=== PATIENT | male | born 1940 | race Caucasian/White ===

== ENCOUNTER 2019-04-22 12:39 | Day surgery (SDC) | payer MEDICARE, OTHER, SELFPAY ==
[2019-04-22] VITALS (7 sets, daily range): BP systolic 112–129; BP diastolic 70–82; PULSE 67–74; RESP 12–17; TEMP 35.9–36.8; O2SAT 94–98; BMI 29.2
--- NOTE | 2019-04-22 | PATH_ITS ---
[facility] Accession Number: [id number] . 01 Material submitted: . PART A: colon - ASCENDING COLON POLYP PART B: colon - SIGMOID COLON POLYP . 02 Diagnosis: A. Ascending Colon, Polyp: Tubular adenoma. . B. Sigmoid Colon, Polyp: Colonic mucosa with focal mucosal hyperplasia. Negative for dysplasia or malignancy. [facility] 04/23/2019 0935 Local . 02 Electronically signed: . Chevy Vu MD, PhD, Pathologist NPI- [id number] . 01 Gross description: . Part A: ASCENDING COLON POLYP: Received in formalin is 1 fragment(s) of norman, soft tissue measuring 0.2 x 0.1 x 0.1 cm which is entirely submitted and submitted entirely in 1 cassette(s) Part B: SIGMOID COLON POLYP: Received in formalin is 1 fragment(s) of norman, soft tissue measuring 0.3 x 0.3 x 0.3 cm which is entirely submitted and submitted entirely in 1 cassette(s) /[facility] 04/22/2019 2158 Local . 02 Pathologist provided ICD-10: D12.2, K63.5 . 02 CPT . 543982, 640879 Performed at: 01 [facility] [address], [place], [place] [id number] MD Marques West MD Phone: [phone] Performed at: 02 [facility] [address] [place], [place] [id number] MD Rosario Winter MD Phone: [phone]
--- NOTE | 2019-04-22 13:44 | PM.OP.ENDO ---
Operative Date/Time/Diagnoses Date of procedure: 04/22/19 Time of procedure: 13:44 Pre-op diagnosis: Screening for colon cancer Post-op diagnosis: other (1. Ascending polyp x1, 6-8 mm, removed with cold biopsy forceps; 2. Sigmoid polyp x1, 4 mm, removed with cold biopsy forceps) Procedure & Clinicians Study performed: Colonoscopy Same procedure as scheduled: Yes Indications: 1. Screening for colon cancer Surgeon: Maria M Barrera Procedure Notes SCOAP/Timeout: 14:00 Procedure in detail: ENDOSCOPIST: Maria M Barrera MD Sedation RN: Miriam Le RN Sedation start time: 2:03 p.m. Sedation end time: 2:32 p.m. PROCEDURE: Colonoscopy with biopsy INDICATIONS: 1. Screening for colon cancer MEDICATION: Levsin 0.125 mg sublingual, incremental doses of Versed and fentanyl until appropriate level sedation achieved. ASA CLASS: 2 TOTAL PROCEDURE TIME: 27 minutes CECAL WITHDRAWAL TIME: 13 minutes COMPLICATIONS: None. EXTENT OF PROCEDURE: Cecum. QUALITY OF PREP: Good with portions of liquid stool. PROCEDURE: Prior to insertion of the colonoscope, a digital rectal examination was accomplished with circumferential palpation of the distal rectal mucosa without significant findings being noted. The high-definition colonoscope was passed into the rectum in the usual fashion and advanced over to the cecum without difficulty. The ileocecal valve, appendiceal stoma, and medial wall all could be inspected and no abnormalities were seen. ASCENDING COLON: As the colonoscope was withdrawn, care was taken to expose and inspect the haustral folds and a 6-8 mm polyp was noted and removed with cold biopsy forceps, excellent hemostasis noted. HEPATIC FLEXURE: Normal no polyps, diverticula or other abnormalities. TRANSVERSE COLON: Normal no polyps, diverticula or other abnormalities. DESCENDING COLON: Normal no polyps, diverticula or other abnormalities. SIGMOID COLON: A 4 mm polyp was seen and removed with cold biopsy forceps, excellent hemostasis, otherwise, no diverticula or other abnormalities. RECTUM: Normal. J maneuver was produced. There was no significant perianal disease. The J maneuver was broken. The remainder of the rectum was inspected and there was no external hemorrhoid disease. The scope was withdrawn. IMPRESSION: 1. Ascending polyp x1, 6-8 mm, removed with cold biopsy forceps 2. Sigmoid polyp 1, 4 mm, removed with cold biopsy forceps PLAN: 1. Follow up in clinic status post pathology results. The possibility of a missed lesion including a malignancy has been discussed with the patient previously. Potential alarm symptoms have been discussed and should be reported immediately. Scope withdrawal time: 13 minutes Sedation minutes: 29 Findings: polyp Specimen(s): other (Ascending x1, sigmoid x1) Complications: none Impression: As above Post-procedure Recommendations: Will call with biopsy results Follow up: weeks (2) Disposition: PACU
[2019-04-22] MEDS: HYOSCYAMINE 0.125 MG TABLET PO ×2 (13:58→14:34)
[2019-04-22] MEDS: MIDAZOLAM 5 MG/5 ML VIAL IV (14:35)
[2019-04-22] MEDS: fentaNYL 250 MCG/5 ML INJ IV (14:36)
== END 2019-04-22 15:45 | disposition home or self-care (01) ==
PROVIDERS: Family Provider Family Medicine; PCP Family Medicine; Visit Provider Student in an Organized Health Care Education/Training Program
PROC: 0DJD8ZZ Inspection of Lower Intestinal Tract, Via Natural or Artificial Opening Endoscopic (ICD-10-PCS; CPT 45378; principal; 2019-04-22 14:00)
DX: Z12.11 Encounter for screening for malignant neoplasm of colon (principal); E11.9 Type 2 diabetes mellitus without complications; Z79.4 Long term (current) use of insulin; D12.2 Benign neoplasm of ascending colon; D12.5 Benign neoplasm of sigmoid colon; E03.9 Hypothyroidism, unspecified
CPT/HCPCS: 45380; J2250; J3010

== ENCOUNTER → 2021-05-14 13:56 | Outpatient (CLI) | payer MEDICARE, OTHER, SELFPAY ==
--- NOTE | 2021-05-14 | DI.CT.S_ITS ---
PROCEDURE: CT ABDOMEN PELVIS W CON INDICATIONS: Unspecified abdominal pain TECHNIQUE: After the administration of oral and IV contrast, axial sections were acquired from the lung bases to the pubic symphysis. Coronal and sagittal reformats were performed. For radiation dose reduction, the following was used: automated exposure control, adjustment of mA and/or kV according to patient size. COMPARISON: None. FINDINGS: Image quality: Excellent. Lung bases: Unremarkable. Heart: No significant findings. ABDOMEN: Liver: At least 5 subcentimeter, calcified lesions are seen in the right hepatic lobe (i.e. series 4, image 39). 1.1 cm hypoattenuating lesion in the inferior aspect of the hepatic lobe, which may reflect a cyst. Gallbladder: Cholecystectomy. Biliary ducts: Minimal intrahepatic biliary duct dilatation. Pancreas: No significant abnormality. Spleen: Normal contour. Adrenal Glands: No nodularity. Kidneys and Ureters: Symmetric enhancement . Mild dilatation of the bilateral ureters. A few scattered cortical hypoattenuating lesions are seen measuring up to 1.2 cm, which may reflect cysts. Stomach and Bowel: Stomach, small bowel loops, and colon are unremarkable. Normal appendix. Peritoneum: No abnormal intraperitoneal fluid. No free air. Ventral Wall: Small fat containing periumbilical hernia. Abdominal Nodes: No retroperitoneal or mesenteric adenopathy by size criteria. Vessels: Aorta and inferior vena cava are normal in size. Calcified atheromatous change of the aorta. PELVIS: Pelvic Organs: Enlargement of the prostate, measuring 6.2 cm in transverse dimension. Bladder: Indentation by prostatomegaly. Pelvic Nodes: No enlarged lymph nodes. Miscellaneous: No inguinal hernias are seen. Bones: Unremarkable. Multifocal degenerative changes. IMPRESSION: 1. Peripheral calcified lesions in the right hepatic lobe, raising concern for a remote parasitic infectious process. 2. Prostatomegaly, which indents the posterior urinary bladder and causes mild hydroureter. Dictated by: Nicholas Tyson M.D. on 05/14/2021 at 16:36 Approved by: Nicholas Tyson M.D. on 05/14/2021 at 16:48
== END ==
PROVIDERS: Family Provider Family Medicine; PCP Family Medicine; Referring Provider Family Medicine; Visit Provider Family Medicine
DX: R10.9 Unspecified abdominal pain (principal); K76.9 Liver disease, unspecified; N40.0 Benign prostatic hyperplasia without lower urinary tract symptoms; N13.4 Hydroureter
CPT/HCPCS: 74177; Q9967

== ENCOUNTER → 2021-09-01 10:37 | Outpatient (CLI) | payer MEDICARE, OTHER, SELFPAY ==
--- NOTE | 2021-09-01 10:40 | DI.RAD.S_ITS ---
PROCEDURE: XR HAND RT MIN 3V INDICATIONS: PAIN TECHNIQUE: 3 views of the hand(s) acquired. COMPARISON: None. FINDINGS: Bones: No fractures or dislocations. Carpal bones are normally aligned. No suspicious bony lesions. Joint space narrowing and subchondral sclerosis noted involving the 1st interphalangeal joint and 1st carpometacarpal joint. Small marginal erosions noted involving the 2nd and 3rd PIP Soft tissues: No suspicious soft tissue calcifications. IMPRESSION: Mild arthritic changes associated with 2nd and 3rd finger marginal erosions Approved by: Dusty Dueñas M.D. on 09/01/2021 at 12:39
--- NOTE | 2021-09-01 10:40 | DI.RAD.S_ITS ---
PROCEDURE: XR HAND LT MIN 3V INDICATIONS: PAIN TECHNIQUE: 3 views of the hand(s) acquired. COMPARISON: [facility], CR, XR HAND RT MIN 3V, 09/01/2021, 11:44. FINDINGS: Bones: No fractures or dislocations. Carpal bones are normally aligned. No suspicious bony lesions. First carpometacarpal joint space narrowing with subchondral sclerosis noted. Carpometacarpal joint space narrowing with small subchondral cysts Soft tissues: No suspicious soft tissue calcifications. 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 on 09/01/2021 at 12:57
== END ==
PROVIDERS: Family Provider Family Medicine; PCP Family Medicine; Referring Provider Family Medicine; Visit Provider Family Medicine
DX: M18.12 Unilateral primary osteoarthritis of first carpometacarpal joint, left hand (principal); M19.042 Primary osteoarthritis, left hand; M79.642 Pain in left hand; M79.641 Pain in right hand
CPT/HCPCS: 73130

== ENCOUNTER → 2022-05-27 12:30 | Outpatient (CLI) | payer MEDICARE, OTHER, SELFPAY ==
--- NOTE | 2022-05-27 13:02 | DI.ECHO.S_ITS ---
Interpretation Summary The ejection fraction is estimated to be 50-55%. Diastolic parameters suggest probable normal left ventricular diastolic function and normal filling pressures. The right ventricle is normal in size and function. There is mild aortic regurgitation. There is mild tricuspid regurgitation. The right ventricular systolic pressure is estimated to be at least 25 mmHg based on an estimated right atrial pressure of 3 mm Hg. Procedure: A two-dimensional transthoracic echocardiogram with color flow and Doppler was performed. The study quality was technically difficult. There is no prior echocardiogram noted for this patient. Left Ventricle: The left ventricle is normal in size and wall thickness. Left ventricular systolic function is low normal. The ejection fraction is estimated to be 50-55%. Left ventricular wall motion is normal. Diastolic parameters suggest probable normal left ventricular diastolic function and normal filling pressures. Right Ventricle: The right ventricle is normal in size and function. Atria: Both atria are normal in size. The interatrial septum grossly appears intact with no obvious evidence for an atrial septal defect. Mitral Valve: The mitral valve is normal in structure and function. There is trace mitral regurgitation. Aortic Valve: The aortic valve is trileaflet. There is no aortic valve stenosis. There is mild aortic regurgitation. Tricuspid Valve: The tricuspid valve is normal in structure and function. There is mild tricuspid regurgitation. The right ventricular systolic pressure is estimated to be at least 25 mmHg based on an estimated right atrial pressure of 3 mm Hg. Pulmonic Valve: The pulmonic valve is not well seen, but is grossly normal. There is mild pulmonic regurgitation. Great Vessels: The aortic root is normal size. The ascending aorta could not be visualized. The IVC is of normal diameter and collapses greater than 50% with a sniff. This suggests a low right atrial pressure of 3 mm Hg. Pericardium/ Pleura There is no pericardial effusion. There is no pleural effusion. MMode/2D Measurements & Calculations LVIDd: 5.4 cm LVOT diam: 2.4 cm LVIDs: 3.8 cm Ao root diam: 3.3 cm FS: 29.4 % asc Aorta Diam: 3.6 cm IVSd: 0.95 cm LVPWd: 1.00 cm LV mcnamara. diameter/BSA (cm/m^2): 2.6 LV sys. diameter/BSA (cm/m^2): 1.8 LA A2 area: 19.0 cm2 RA long axis: 5.6 cm LA A4 area: 18.6 cm2 RA area: 17.7 cm2 LA length (vol): 5.0 cm RA vol: 47.3 ml LA vol: 59.7 ml RA : 22.4 ml/m2 LA vol index: 28.3 ml/m2 TAPSE: 2.4 cm Doppler Measurements & Calculations Ao V2 max: 127.2 cm/sec LVOT Max Darrin: 81.0 cm/sec Ao V2 mean: 92.5 cm/sec LV V1 max P.6 mmHg Ao max P.5 mmHg LV V1 VTI: 17.4 cm Ao mean P.8 mmHg TRINITY(I,D): 2.9 cm2 Ao V2 VTI: 26.4 cm TRINITY(V,D): 2.8 cm2 sev ratio: 0.66 TRINITY indexed to BSA (cm^2/m^2): 1.4 MV E max darrin: 59.3 cm/sec TR max darrin: 234.4 cm/sec MV A max darrin: 77.3 cm/sec TR max P.0 mmHg MV E/A: 0.77 Med Peak E' Darrin: 5.9 cm/sec E/E' med: 10.0 Lat Peak E' Darrin: 6.8 cm/sec E/E' lat: 8.7 E/e' average: 9.4 MV dec time: 0.28 sec SV(LVOT): 76.4 ml Reading Physician:04:11 PM
== END ==
PROVIDERS: Family Provider Family Medicine; PCP Family Medicine; Referring Provider Internal Medicine Cardiovascular Disease; Visit Provider Internal Medicine Cardiovascular Disease
DX: I08.2 Rheumatic disorders of both aortic and tricuspid valves (principal); I95.9 Hypotension, unspecified
CPT/HCPCS: 93306

== ENCOUNTER → 2022-10-07 10:04 | Outpatient (CLI) | payer MEDICARE, OTHER, SELFPAY ==
--- NOTE | 2022-10-07 | DI.CT.S_ITS ---
PROCEDURE: CT ABDOMEN PELVIS W CON INDICATIONS: unspecified abdominal pain TECHNIQUE: After the administration of oral and intravenous contrast, axial sections were acquired from the lung bases to the pubic symphysis. Coronal and sagittal reformats were performed. For radiation dose reduction, the following was used: automated exposure control, adjustment of mA and/or kV according to patient size. COMPARISON:[facility], CT, CT ABDOMEN PELVIS W CON, 05/14/2021, 15:22. FINDINGS: Image quality: Excellent. Lung bases: Unremarkable. Heart: No significant findings. ABDOMEN: Liver: Normal in size and overall enhancement. Punctate subcentimeter low-density foci are present suggesting the presence of small hepatic cysts which are incompletely characterized. Gallbladder: Surgically absent. Biliary ducts: Unremarkable. Pancreas: Unremarkable. Spleen: Unremarkable. Adrenal Glands: Unremarkable. Kidneys and Ureters: Unremarkable. Stomach and Bowel: Stomach, small bowel loops, and colon are unremarkable. The appendix is thin walled. Peritoneum: No abnormal intraperitoneal fluid. No free air. Ventral Wall: No hernia. Abdominal Nodes: No retroperitoneal or mesenteric adenopathy by size criteria. Vessels: Aorta and inferior vena cava are normal in size. There are scattered atheromatous calcifications throughout the aorta and iliac arteries bilaterally. PELVIS: Pelvic Organs: Unremarkable. Bladder: A radiodense 1.5 cm exophytic mass is present along the posterior right aspect of the bladder (series 2/image 66). The prostate has a heterogeneous appearance and measures 6.5 cm in diameter. Pelvic Nodes: No enlarged lymph nodes. Miscellaneous: There are small bilateral fat containing inguinal hernias. Bones: Unremarkable. IMPRESSION: 1. Exophytic radiodense bladder mass. Direct visualization recommended. Differential considerations include urothelial neoplasm. 2. No other acute intra-abdominal findings. Normal appendix. 3. Prostatomegaly. Dictated by: Martha Bosch M.D. on 10/07/2022 at 12:28 Approved by: Martha Bosch M.D. on 10/07/2022 at 12:33
== END ==
PROVIDERS: Family Provider Family Medicine; PCP Family Medicine; Referring Provider Family Medicine; Visit Provider Family Medicine
DX: N32.9 Bladder disorder, unspecified (principal); N40.0 Benign prostatic hyperplasia without lower urinary tract symptoms; R10.9 Unspecified abdominal pain; K40.20 Bilateral inguinal hernia, without obstruction or gangrene, not specified as recurrent
CPT/HCPCS: 74177; Q9967

== ENCOUNTER 2022-11-22 06:43 | Day surgery (SDC) | payer MEDICARE, OTHER, SELFPAY ==
[2022-11-22] VITALS (8 sets, daily range): BP systolic 124–161; BP diastolic 66–91; PULSE 68–85; RESP 11–18; TEMP 36.3–36.6; O2SAT 95–99; BMI 30.1
--- NOTE | 2022-11-22 | PATH_ITS ---
[facility] Accession Number: [id number] No. of containers..01 Tissue . 01 Material submitted: . bladder - BLADDER TUMOR . 01 Diagnosis: Urinary Bladder, Transurethral Resection: High-grade papillary transitional cell carcinoma, noninvasive. - Muscularis propria present, uninvolved. [facility] 11/25/2022 1754 Local . 01 Electronically signed: . Opal Tucker MD, Pathologist NPI- [id number] . 01 Gross description: . BLADDER TUMOR: Received in formalin are multiple fragment(s) of norman, soft tissue measuring 0.1 x 0.1 x 0.1 cm to 0.3 x 0.3 x 0.2 cm submitted entirely in 1 cassette(s) /[facility] 11/23/2022 1924 Local . 01 Pathologist provided ICD-10: C67.9 . 01 CPT . 693547 Specimen Comment: A courtesy copy of this report has been sent to [phone] Performed at: 01 [facility] [address] [place] [address], [place], [place] [id number] MD Marques West MD Phone: [phone]
[2022-11-22] MEDS: LACTATED RINGERS 1,000 ML 21 ML IV (07:33)
--- NOTE | 2022-11-22 07:37 | PM.PREOP ---
Pre-operative Note COVID-19 COVID-19 status: Negative Criteria for continued procedure: Delay expected to result in less-positive ultimate med/surg outcome and Non-surgical alternatives not available or appropriate per current SOC Interval Note History & Physical reviewed/Exam performed by Physician: Yes Changes to H&P: No
--- NOTE | 2022-11-22 07:46 | SUR.OPER ---
Lithotomy on padded OR bed, head on pillow, arms secured on padded arm boards at <90 degrees abduction. Gel pad under right arm. Legs secured in padded yellow fins stirrups.
[2022-11-22] MEDS: CEFAZOLIN 2 GM/100 ML PREMIX 100 ML IV (07:56)
[2022-11-22] MEDS: IOPAMIDOL 30 ML VIAL INJ (09:11)
--- NOTE | 2022-11-22 09:39 | P.OP_ITS ---
Procedure & Clinicians Procedure: Trans urethral resection of bladder tumor medium (total tumor 2-1/2 cm), cystoscopy with retrograde pyelogram and left ureteral stent placement. Same procedure as scheduled: Yes Indications: This 82-year-old male was found to have a bladder tumor via imaging and then flexible cystoscopy it is on the right lateral posterior aspect of the bladder the ureteral orifices not seen and does we may need to place a stent. Patient presents for resection of his tumor. The tumor actually turned out to be Surgeon: Raheel Inman Click Yes if Unassisted: Yes Anesthesia Type: General Operative Notes Findings: Findings: Urethral trauma meatus and urethra normal with normal mucosa. Sphincter as well coapted. Prostate shows moderate obstructive character with many serpiginous varices. One tumor abutted the bladder neck at the 7 to 8 o'clock position. The other larger tumor turned out to incorporate the right ureteral orifice and again a total of the 2 his about 2-2-1/2 cm. Prior to resection the ureteral orifice could not be identified on the right side. Eventually after using only cut the ureteral orifice was identified and cannulated with a angled wire. [place] catheter was passed over and retrograde pyelogram revealed the wire and [place] and then undisturbed collecting system the renal pelvis and calices showed no filling defects. A 7 Afghan by multi length stent was left in good position in the right collecting system without a string. Within the bladder there was severe trabeculation the left ureteral orifice was in normal position with clear efflux and there were no other tumors within the bladder. A [address] catheter was left in place with 14 c c in the balloon. Closure Type: not applicable Specimen(s): other (Tumor fragments) Applied: catheter (22 Afghan 5 cc Wilson catheter 14 cc in the balloon) and other (7 Afghan by multi length stent left in good position right collecting system no string) Estimated Blood Loss (mL): 50 Blood products transfused: none Procedure in detail: Procedure in detail: After informed consent was obtained, the patient was identified and brought to the operating room bruise placed in a supine position on the table. Once on the table anesthesia was induced and maintained. Ensuring an adequate level of anesthesia the patient was transitioned to the lithotomy position and wants in the lithotomy position he was prepped, draped, prepared for Transurethral procedure. After prepping, draping, time-out and ensuring an adequate level of anesthesia a 22 Afghan cystoscope was passed through the urethra prostate and into the bladder where cystoscopy was performed with the 30 and 70 degree lens. An attempt was made to identify the right ur eteral orifice and it became apparent that the tumor incorporated the orifice. Therefore the resectoscope was inserted and the serpiginous varices at the bladder neck were cauterized given that they were of bleeding. The tumor at the bladder neck at the 7 to 8 o'clock position was then resected. Then with careful resection using cut only the larger tumor overlying the ureteral orifice was sequentially resected. At this point the cystoscope was reinserted 30 and 70 degree lens were used and an angled wire. Eventually the what appeared to be the orifice was identified in the wire passed up and into the orifice. The [place] catheter was then placed over this and under fluoroscopic visualization the wire was passed up and appeared to be in the collecting system the wire was pulled out the Wilson catheter was left in place and the collecting system filled with a 50 50 mixture of contrast and saline. With the catheter clearly in the collecting system and no extravasation the wire was replaced and the [place] catheter was passed out a stent was then passed over the wire in a coaxial fashion position in the renal pelvis under fluoroscopic visualization in the bladder under direct vision the nylon harness was then removed. The stent was left in good position confirmed by direct vision in the bladder and fluoroscopy. The cystoscope was then removed and the resectoscope reinserted. Points of bleeding were controlled with the electrocautery. The fragments were removed and collected. And with hemostasis achieved the bladder was left full the scope was removed and the 22 Afghan catheter was passed through the urethra prostate and into the bladder without difficulty. The balloon was filled with 14 cc of sterile water and was placed to gravity drainage. Note this procedure was extended because of the difficulty in identifying the right ureteral orifice it was approximately 90 minutes versus 30 minutes. But happily the orifice identified stent was left in place and it appears that the patient will do well. There were no complications and at this point the patient was awakened having tolerated the procedure well transferred to the postanesthesia care unit for recovery from which he will be discharged to home and follow up on my office approximately 10-14 days. Complications: none Post-operative Condition: stable Disposition: PACU Plan for aftercare: Discharge to home with Wilson catheter and stent in place follow-up in my office in 10 to 14 days.
--- NOTE | 2022-11-22 10:00 | DI.RAD.S_ITS ---
PROCEDURE: XR ABDOMEN 1V INDICATIONS: STENT PLACEMENT TECHNIQUE: Low resolution intraoperative fluoroscopic spot films of the right flank was obtained COMPARISON: None. FINDINGS: Low resolution intraoperative fluoro spot films shows sequential placement of a right ureteral stent IMPRESSION: Fluoroscopic guidance Approved by: Dusty Dueñas M.D. on 11/22/2022 at 17:52
[2022-11-22] MEDS: LACTATED RINGERS 1,000 ML 42 ML IV (10:15)
--- NOTE | 2022-11-22 10:49 | SUR.PHASEII ---
Leg bag applied. Patient and spouse shown paul care and how to change and empty bags.
== END 2022-11-22 10:44 | disposition home or self-care (01) ==
PROVIDERS: Family Provider Family Medicine; PCP Family Medicine; Referring Provider Urology; Visit Provider Urology
PROC: 0TBB8ZZ Excision of Bladder, Via Natural or Artificial Opening Endoscopic (ICD-10-PCS; CPT 52235; principal; 2022-11-22 07:45)
DX: C67.9 Malignant neoplasm of bladder, unspecified (principal)
CPT/HCPCS: 52235; 74018; 76000; 82962; J0690; J1100; J2405; J2704; J3010; Q9967

== ENCOUNTER 2022-11-26 09:11 | Emergency (ER) | payer MEDICARE, OTHER, SELFPAY ==
[2022-11-26] VITALS (11 sets, daily range): BP systolic 96–154; BP diastolic 61–92; PULSE 70–81; RESP 17–18; TEMP 36.6; O2SAT 96–100; BMI 30.1
--- NOTE | 2022-11-26 09:35 | DI.CT.S_ITS ---
PROCEDURE: CT ANGIO HEAD AND NECK INDICATIONS: confusion / hallucinations, new TECHNIQUE: Pre-contrast 4.5 mm thick sections acquired from the foramen magnum to the vertex. After the administration of intravenous contrast, 1 mm thick sections acquired from the aortic arch through the [place] of [place]. Post-contrast 4.5 mm thick sections then re-acquired from the foramen magnum to the vertex. MIP reformats of the arterial vasculature were utilized. For radiation dose reduction, the following was used: automated exposure control, adjustment of mA and/or kV according to patient size. COMPARISON: None. FINDINGS: Noncontrast CT Brain: Cerebrum, cerebellum and brainstem: Mild atrophy and white matter chronic ischemic change. No evidence of intracranial hemorrhage, mass effect or extra-axial fluid collections. No white matter disease. [place]-white distinction is well preserved throughout the exam. Ventricles: Appropriate size and position. No evidence of hydrocephalus. Skull base: The bony sella, pituitary gland and infundibulum are unremarkable. Posterior fossa and cerebellum are unremarkable. Visualized portions of the external auditory canals and tympanic cavity are within normal limits. Calvarium and Scalp: No scalp soft tissue swelling. The underlying calvarium is intact without skull fracture or lytic lesion. Paranasal Sinuses: Unremarkable as visualized. No acute sinusitis. Mastoids: Unremarkable as visualized. No mastoid effusion. Cerebral CT Angiogram: Internal carotid arteries: No acute findings. Mild atherosclerotic plaque without stenosis Intracranial ICA are patent with no significant stenosis. No occlusion. No aneurysm. Anterior cerebral arteries: Unremarkable. No significant stenosis. No occlusion. No aneurysm. Middle cerebral arteries: Unremarkable. No significant stenosis. No occlusion. No aneurysm. Posterior cerebral arteries: Unremarkable. No significant stenosis. No occlusion. No aneurysm. Basilar artery: Unremarkable. No significant stenosis. No occlusion. No aneurysm. Vertebral arteries: Unremarkable. No significant stenosis. No dissection or occlusion. Dural venous sinuses: Unremarkable given phase of enhancement. Other: Arterial phase brain parenchyma unremarkable. Neck CT Angiogram: Internal carotid arteries: Unremarkable. No significant stenosis. No dissection or occlusion. Common carotid arteries: Unremarkable. No significant stenosis. No dissection or occlusion. External carotid arteries: Unremarkable. No occlusion. Vertebral arteries: Unremarkable. No significant stenosis. No dissection or occlusion. Aortic arch and mediastinum: Unremarkable. Other: Arterial phase neck soft tissue within normal limits. Both lung apices are clear. Degenerative disc disease and arthropathy noted in the cervical spine IMPRESSION: 1. Atrophy and chronic ischemic change without intracranial hemorrhage or mass effect. 2. Mild atherosclerotic calcification without evidence of large vessel occlusion, significant stenosis or aneurysm in the head neck. Note: Any reported proximal ICA stenosis was calculated using NASCET guidelines. Approved by: Dusty Dueñas M.D. on 11/26/2022 at 11:09
[2022-11-26 10:10] LABS: Add Manual Diff / Slide Review NO; Basophils Absolute Auto 100 /uL (0-100); Basophils Percent Auto 0.6 % (0-2); Eosinophils Absolute Auto 200 /uL (0-450); Eosinophils Percent Auto 1.9 % (2-4); Hematocrit 41.8 % (41-53); Hemoglobin 14.2 g/dL (13.5-17.5); Lymphocytes Absolute Auto 1000 /uL (1100-4500); Lymphocytes Percent Auto 9.4 % (25-40); Mean Corpuscular Hemoglobin 33.1 PG (26-34); Mean Corpuscular Volume 97.5 fL (80-100); Monocytes Absolute Auto 600 /uL (0-900); Neutrophils Absolute Auto 8700 /uL (1500-7000); Neutrophils Percent Auto 82.1 % (50-75); Platelet Count 248 X10^3/uL (150-400); Red Blood Cell Count 4.29 X10^6/uL (4.5-5.9); Red Cell Distribution Width 14.9 % (11.6-14.8); White Blood Cell Count 10.6 X10^3/uL (4.5-11.0)
[2022-11-26 10:12] LABS: Lactate (Lactic Acid) 1.1 mmol/L (0.7-2.1)
[2022-11-26 10:14] LABS: Acetaminophen 10 ug/mL (10-30); Alanine Aminotransferase 26 IU/L (<50); Albumin 4.6 g/dL (3.5-5.0); Albumin Globulin Ratio 1.3 (1.0-2.8); Alkaline Phosphatase 58 U/L (38-126); Aspartate Aminotransferase 29 IU/L (17-59); BUN Creatinine Ratio 15.7 (6-22); Bilirubin Total 2.5 mg/dL (0.2-1.3); Blood Urea Nitrogen 16 mg/dL (9-20); Calcium 9.6 mg/dL (8.4-10.2); Carbon Dioxide 26 mmol/L (22-32); Chloride 101 mmol/L (98-107); Estimated Glomerular Filt Rate > 60 mL/min (>60); Globulin 3.6 g/dL (1.7-4.1); Glucose 166 mg/dL (80-110); HEMOLYSIS < 15 (0-50); Lipase 47 U/L (23-300); Potassium 4.6 mmol/L (3.4-5.1); Sodium 136 mmol/L (137-145); Total Protein 8.2 g/dL (6.3-8.2)
[2022-11-26 10:30] LABS: Procalcitonin 0.06 ng/mL (<0.5)
--- NOTE | 2022-11-26 10:41 | DI.MRI.S_ITS ---
PROCEDURE: MR HEAD/BRAIN WO CON INDICATIONS: Altered mental status TECHNIQUE: Noncontrast axial T1 spin echo, axial T2 fast spin echo, sagittal and axial FLAIR, coronal T2 fast spin echo, axial gradient echo, axial diffusion and ADC through the brain. COMPARISON: None. FINDINGS: Image quality: Limited by motion artifact CSF Spaces: Basal cisterns are patent. No extra-axial fluid collections. Ventricles are normal in size and shape. Brain: No intracranial masses or hemorrhage. [place]/white matter interface is normal. Brainstem appears normal. Diffusion-weighted sequence is unremarkable without evidence of acute infarct. Normal intravascular flow voids are present. 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 Mild atrophy Skull and face: Calvarium has normal marrow signal. Orbits appear normal. Bilateral intraocular lens replacements noted. Sinuses: Sinuses and mastoids are clear. IMPRESSION: Limited but unremarkable MRI of the brain without evidence of acute infarct, hemorrhage or mass lesion Approved by: Dusty Dueñas M.D. on 11/26/2022 at 13:34
[2022-11-26 10:44] LABS: TSH w/ Reflex to FT4 1.08 uIU/mL (0.47-4.68)
--- NOTE | 2022-11-26 10:48 | ED_ITS ---
HPI - Altered Mental Status General Chief Complaint: Altered Mental Status Stated Complaint: post op problems/allucinations Time Seen by Provider: 11/26/22 10:30 Source: patient and family Mode of arrival: Ambulatory History of Present Illness HPI narrative: Patient brought in by from home. Complains of hallucinations and confusion. Patient just had cystoscopy surgery this past Monday with Dr. Inman. Later that night patient was doing okay but started making nonsensical questions. Such as getting ready for a trip and to get packing. Also regarding a pet dog. Through the week he is had visual hallucinations and auditory davidson llucinations as well. None right now. No nausea or vomiting no fever. Has had some chills. Has a Wilson catheter in place. Denies any headache. No facial droop slurred speech or unilateral weakness or numbness. Fast exam negative. has discontinue oxybutynin. She read the side effects and it clearly says on their auditory and visual hallucinations it can be 1 of the side effects. Last dose was yesterday morning. Since then he has improved with his hallucinations. He had total of 5 doses of oxybutynin. She states within 2 hours of taking this medication he would hallucinate. Related Data Home Medications Medication Instructions Recorded Confirmed levothyroxine 125 mcg tablet 125 mcg PO QAM ##0 08/17/17 11/22/22 (Synthroid) sitagliptin phosphate 100 mg 100 mg PO QDAY ##0 08/17/17 11/21/22 tablet (Januvia) methotrexate sodium 2.5 mg tablet 20 mg PO QWEEK 11/02/22 11/21/22 trazodone 50 mg tablet 50 mg PO BEDTIME PRN sleep 11/02/22 11/16/22 folic acid 1 mg tablet 1 mg PO DAILY 11/16/22 11/22/22 insulin glargine 100 unit/mL 20 unit SUBCUT BID #0 mL 11/16/22 11/22/22 subcutaneous solution (Lantus U-100 Insulin) multivitamin with minerals 1 cap PO DAILY 11/16/22 11/22/22 saw palmetto PO 11/16/22 11/16/22 zinc acetate 1 tab PO DAILY 11/16/22 11/22/22 ascorbic acid (vitamin C) 1,000 mg 1,000 mg PO BID 11/21/22 11/22/22 tablet (Vitamin C) aspirin 81 mg tablet 81 mg PO DAILY 11/21/22 11/22/22 cholecalciferol (vitamin D3) 50 50 mcg PO DAILY 11/21/22 11/22/22 mcg (2,000 unit) capsule (Vitamin D3) marcial saez 500 mg capsule 500 mg PO BID 11/21/22 11/21/22 Previous Rx's Medication Instructions Recorded oxybutynin chloride 5 mg tablet 5 mg PO BID-TID PRN bladder spasms 11/22/22 #30 tabs phenazopyridine 200 mg tablet 200 mg PO TID PRN Bladder 11/22/22 (Pyridium) irritation #30 tabs ciprofloxacin HCl 500 mg tablet 500 mg PO BID Wilson catheter #7 12/07/22 tabs Allergies Allergy/AdvReac Type Severity Reaction Status Date / Time oxybutynin Allergy Intermediate Hallucinati Verified 11/26/22 15:20 ng Review of Systems Review of Systems Narrative: GENERAL: Positive chills, negative fatigue, malaise, fever, sweats. HEENT: negative sinus pain, ear pain, sore throat RESPIRATORY: negative dyspnea, cough CARDIOVASCULAR: negative chest pain, palpitations GASTROINTESTINAL: negative nausea, vomiting, abdominal pain : negative dysuria, frequency, hematuria MUSCULOSKELETAL: negative muscle or bony pain SKIN: negative rash, skin lesions NEUROLOGIC: negative weakness, numbness PSYCH: Positive Confusion, hallucinations ROS Unobtainable: All systems reviewed & are unremarkable except as noted in HPI and below Patient History Medical History BPH (benign prostatic hyperplasia) Diabetes Gross hematuria History of tobacco use Lower urinary tract symptoms Malignant tumor of bladder neck Rheumatoid arthritis Surgical History History of back surgery History of knee replacement Hx of cataract surgery Hx of cholecystectomy Hx of circumcision Hx of colonoscopy Hx of shoulder surgery Hx of vasectomy Social History marital status: number of children: 2 household members: spouse Smoking Status: Former smoker Tobacco: How many years used: 20 alcohol intake: current caffeine: Yes Type(s) of exercise: none Smoking Status: Former smoker alcohol intake frequency: a few times a week Substance Use Type: does not use Exam Narrative Exam Narrative: GENERAL: in no distress, not toxic not dyspneic HEAD: Normocephalic. EYES: Pupils equal round ENT: Mucous membranes moist. NECK: Trachea midline. CARDIOVASCULAR: Regular rate and rhythm without murmurs RESPIRATORY: Clear to auscultation. Breath sounds equal bilaterally. No wheezes, rales, or rhonchi. GASTROINTESTINAL: Abdomen soft, non-tender EXTREMITIES: No gross deformities. BACK: No flank tenderness. NEURO: AOx4. Clear speech no facial droop. ?Light touch intact to bilateral face hands. ?Strong equal oracle bpm consultant bilaterally and ankle flexion hip flexion and knee flexion. ?Strong bilateral patellar reflexes. ?No pronator drift. ? SKIN: Warm and dry PSYCH: Not anxious, is cooperative, denies any present auditory or visual hallucinations. Patient answering appropriately. Initial Vital Signs Initial Vital Signs: Vital Signs Temperature 97.9 F 11/26/22 09:15 Pulse Rate 81 11/26/22 09:15 Respiratory Rate 17 11/26/22 09:15 Blood Pressure 117/62 11/26/22 09:15 Pulse Oximetry 97 11/26/22 09:15 Oxygen Delivery Method Room Air 11/26/22 09:15 Course Orders Ordered: ED Orders 11/26/22 09:32 RT Consult Eval and Treat NOW 11/26/22 09:35 CT angio head and neck Stat Acetaminophen Stat Complete Blood Count AUTO DIFF Stat Comprehensive Metabolic Panel Stat Lactate (Lactic Acid) Stat Lipase Stat PTT Partial Thromboplastin Nicolás Stat Procalcitonin Stat Prothrombin Time INR Stat TSH w/ Reflex to FT4 Stat 11/26/22 09:47 EKG-12 Lead Stat 11/26/22 10:00 Blood Culture Stat 11/26/22 10:41 MR head/brain wo con Stat 11/26/22 12:40 Urinalysis and Microscopic Stat Urine Culture Stat 11/26/22 12:47 COVID19 -Nasal RAPID Stat Vital Signs Vital signs: Vital Signs - 8 hr 11/26/22 09:15 11/26/22 11:00 11/26/22 13:00 Temperature 97.9 F Pulse Rate 81 72 70 Respiratory Rate 17 18 18 Blood Pressure 117/62 147/74 H 96/61 Pulse Oximetry 97 96 99 Oxygen Delivery Method Room Air Room Air Room Air MDM - Altered Mental Status Lab Data 11/26/22 09:35 11/26/22 09:35 Labs: Lab Results 11/26/22 11/26/22 11/26/22 Range/Units 09:35 09:35 09:35 WBC 10.6 (4.5-11.0) X10^3/uL RBC 4.29 L (4.5-5.9) X10^6/uL Hgb 14.2 (13.5-17.5) g/dL Hct 41.8 (41-53) % MCV 97.5 (80-100) fL MCH 33.1 (26-34) PG MCHC 34.0 (30-36) % RDW 14.9 H (11.6-14.8) % Plt Count 248 (150-400) X10^3/uL Neut % (Auto) 82.1 H (50-75) % Lymph % (Auto) 9.4 L (25-40) % [place] % (Auto) 6.0 (3-14) % Eos % (Auto) 1.9 L (2-4) % Baso % (Auto) 0.6 (0-2) % Neut # (Auto) 8700 H (7041-1553) /uL Lymph # (Auto) 1000 L (8074-9223) /uL [place] # (Auto) 600 (0-900) /uL Eos # (Auto) 200 (0-450) /uL Baso # (Auto) 100 (0-100) /uL PT 12.0 (10.1-12.7) SECONDS INR 1.0 (0.9-1.3) APTT 29 (26-36) SECONDS Sodium 136 L (137-145) mmol/L Potassium 4.6 (3.4-5.1) mmol/L Chloride 101 (98-107) mmol/L Carbon Dioxide 26 (22-32) mmol/L BUN 16 (9-20) mg/dL Creatinine 1.02 (0.66-1.25) mg/dL Estimated GFR > 60 (>60) mL/min BUN/Creatinine Ratio 15.7 (6-22) Glucose 166 H (80-110) mg/dL Lactate (0.7-2.1) mmol/L Calcium 9.6 (8.4-10.2) mg/dL Total Bilirubin 2.5 H (0.2-1.3) mg/dL AST 29 (17-59) IU/L ALT 26 (<50) IU/L Alkaline Phosphatase 58 (38-126) U/L Total Protein 8.2 (6.3-8.2) g/dL Albumin 4.6 (3.5-5.0) g/dL Globulin 3.6 (1.7-4.1) g/dL Albumin/Globulin Ratio 1.3 (1.0-2.8) Lipase 47 (23-300) U/L Procalcitonin 0.06 (<0.5) ng/mL TSH (0.47-4.68) uIU/mL Urine Color Urine Appearance Urine pH (4.5-8.0) Ur Specific [place] (1.000-1.035) Urine Protein (Negative) Urine Glucose (UA) (Negative) g/dL Urine Ketones (NEGATIVE) Urine Occult Blood (Negative) Urine Nitrate (Negative) Urine Bilirubin (NEGATIVE) Urine Urobilinogen (0.2) E.U./dL Ur Leukocyte Esterase (NEGATIVE) Urine RBC (0-5/HPF) Urine WBC (0-5/HPF) Ur Renal Epithelial Cell (0-1/HPF) Urine Bacteria (None) Urine Mucus (Negative) Ur Culture Indicated? Acetaminophen 10 (10-30) ug/mL SARS-CoV-2 (PCR) (Negative) 11/26/22 11/26/22 11/26/22 Range/Units 09:35 09:35 12:40 WBC (4.5-11.0) X10^3/uL RBC (4.5-5.9) X10^6/uL Hgb (13.5-17.5) g/dL Hct (41-53) % MCV (80-100) fL MCH (26-34) PG MCHC (30-36) % RDW (11.6-14.8) % Plt Count (150-400) X10^3/uL Neut % (Auto) (50-75) % Lymph % (Auto) (25-40) % [place] % (Auto) (3-14) % Eos % (Auto) (2-4) % Baso % (Auto) (0-2) % Neut # (Auto) (5258-1038) /uL Lymph # (Auto) (3582-1038) /uL [place] # (Auto) (0-900) /uL Eos # (Auto) (0-450) /uL Baso # (Auto) (0-100) /uL PT (10.1-12.7) SECONDS INR (0.9-1.3) APTT (26-36) SECONDS Sodium (137-145) mmol/L Potassium (3.4-5.1) mmol/L Chloride (98-107) mmol/L Carbon Dioxide (22-32) mmol/L BUN (9-20) mg/dL Creatinine (0.66-1.25) mg/dL Estimated GFR (>60) mL/min BUN/Creatinine Ratio (6-22) Glucose (80-110) mg/dL Lactate 1.1 (0.7-2.1) mmol/L Calcium (8.4-10.2) mg/dL Total Bilirubin (0.2-1.3) mg/dL AST (17-59) IU/L ALT (<50) IU/L Alkaline Phosphatase (38-126) U/L Total Protein (6.3-8.2) g/dL Albumin (3.5-5.0) g/dL Globulin (1.7-4.1) g/dL Albumin/Globulin Ratio (1.0-2.8) Lipase (23-300) U/L Procalcitonin (<0.5) ng/mL TSH 1.08 (0.47-4.68) uIU/mL Urine Color Red Urine Appearance Cloudy Urine pH 6.5 (4.5-8.0) Ur Specific [place] 1.010 (1.000-1.035) Urine Protein 2+ H (Negative) Urine Glucose (UA) Negative (Negative) g/dL Urine Ketones Negative (NEGATIVE) Urine Occult Blood 3+ H (Negative) Urine Nitrate Negative (Negative) Urine Bilirubin Negative (NEGATIVE) Urine Urobilinogen 0.2 (0.2) E.U./dL Ur Leukocyte Esterase Trace H (NEGATIVE) Urine RBC 30-100/hpf H (0-5/HPF) Urine WBC 5-10/hpf H (0-5/HPF) Ur Renal Epithelial Cell 1-5/hpf H (0-1/HPF) Urine Bacteria None seen (None) Urine Mucus 1+ H (Negative) Ur Culture Indicated? Specimen cultured Acetaminophen (10-30) ug/mL SARS-CoV-2 (PCR) (Negative) 11/26/22 Range/Units 12:47 WBC (4.5-11.0) X10^3/uL RBC (4.5-5.9) X10^6/uL Hgb (13.5-17.5) g/dL Hct (41-53) % MCV (80-100) fL MCH (26-34) PG MCHC (30-36) % RDW (11.6-14.8) % Plt Count (150-400) X10^3/uL Neut % (Auto) (50-75) % Lymph % (Auto) (25-40) % [place] % (Auto) (3-14) % Eos % (Auto) (2-4) % Baso % (Auto) (0-2) % Neut # (Auto) (7929-1265) /uL Lymph # (Auto) (5157-5912) /uL [place] # (Auto) (0-900) /uL Eos # (Auto) (0-450) /uL Baso # (Auto) (0-100) /uL PT (10.1-12.7) SECONDS INR (0.9-1.3) APTT (26-36) SECONDS Sodium (137-145) mmol/L Potassium (3.4-5.1) mmol/L Chloride (98-107) mmol/L Carbon Dioxide (22-32) mmol/L BUN (9-20) mg/dL Creatinine (0.66-1.25) mg/dL Estimated GFR (>60) mL/min BUN/Creatinine Ratio (6-22) Glucose (80-110) mg/dL Lactate (0.7-2.1) mmol/L Calcium (8.4-10.2) mg/dL Total Bilirubin (0.2-1.3) mg/dL AST (17-59) IU/L ALT (<50) IU/L Alkaline Phosphatase (38-126) U/L Total Protein (6.3-8.2) g/dL Albumin (3.5-5.0) g/dL Globulin (1.7-4.1) g/dL Albumin/Globulin Ratio (1.0-2.8) Lipase (23-300) U/L Procalcitonin (<0.5) ng/mL TSH (0.47-4.68) uIU/mL Urine Color Urine Appearance Urine pH (4.5-8.0) Ur Specific [place] (1.000-1.035) Urine Protein (Negative) Urine Glucose (UA) (Negative) g/dL Urine Ketones (NEGATIVE) Urine Occult Blood (Negative) Urine Nitrate (Negative) Urine Bilirubin (NEGATIVE) Urine Urobilinogen (0.2) E.U./dL Ur Leukocyte Esterase (NEGATIVE) Urine RBC (0-5/HPF) Urine WBC (0-5/HPF) Ur Renal Epithelial Cell (0-1/HPF) Urine Bacteria (None) Urine Mucus (Negative) Ur Culture Indicated? Acetaminophen (10-30) ug/mL SARS-CoV-2 (PCR) Negative (Negative) Imaging Data CTA - brain/neck: Radiologist's Impression: PROCEDURE:? CT ANGIO HEAD AND NECK ? INDICATIONS:? confusion / hallucinations, new ? TECHNIQUE:? Pre-contrast 4.5 mm thick sections acquired from the foramen magnum to the vertex.? After the administration of intravenous contrast, 1 mm thick sections acquired from t he aortic arch through the [place] of [place].? Post-contrast 4.5 mm thick sections then re- acquired from the foramen magnum to the vertex.? MIP reformats of the arterial vasculature were utilized.? For radiation dose reduction, the following was used:? automated exposure control, adjustment of mA and/or kV according to patient size.? ? COMPARISON:? None. ? FINDINGS: ? Noncontrast CT Brain: ? Cerebrum, cerebellum and brainstem:? Mild atrophy and white matter chronic isch emic change.? No evidence of intracranial hemorrhage, mass effect or extra-axial fluid collections.? No white matter disease. [place]-white distinction is well preserved throughout the exam. ? Ventricles:? Appropriate size and position.? No evidence of hydrocephalus. ? Skull base:? The bony sella, pituitary gland and infundibulum are unremarkable.? Posterior fossa and cerebellum are unremarkable. Visualized portions of the external auditory canals and tympanic cavity are within normal limits. ? Calvarium and Scalp:? No scalp soft tissue swelling.? The underlying calvarium is intact without skull fracture or lytic lesion. ? Paranasal Sinuses:? Unremarkable as visualized.? No acute sinusitis. Mastoids:? Unremarkable as visualized.? No mastoid effusion. ? Cerebral CT Angiogram: ? Internal carotid arteries:? No acute findings.? Mild atherosclerotic plaque without stenosis Intracranial ICA are patent with no significant stenosis.? No occlusion.? No aneurysm. ? Anterior cerebral arteries:? Unremarkable.? No significant stenosis.? No occlusion.? No aneurysm. ? Middle cerebral arteries:? Unremarkable.? No significant stenosis.? No occlusion.? No aneurysm. ? Posterior cerebral arteries:? Unremarkable.? No significant stenosis.? No occlusion.? No aneurysm. ? Basilar artery:? Unremarkable.? No significant stenosis.? No occlusion.? No aneurysm. ? Vertebral arteries:? Unremarkable.? No significant stenosis.? No dissection or occlusion. ? Dural venous sinuses:? Unremarkable given phase of enhancement. Other: Arterial phase brain parenchyma unremarkable. ? Neck CT Angiogram: ? Internal carotid arteries:? Unremarkable.? No significant stenosis.? No dissection or occlusion. ? Common carotid arteries:? Unremarkable.? No significant stenosis.? No dissection or occlusion. ? External carotid arteries:? Unremarkable.? No occlusion. ? Vertebral arteries:? Unremarkable.? No significant stenosis.? No dissection or occlusion. ? Aortic arch and mediastinum: Unremarkable. Other:? Arterial phase neck soft tissue within normal limits.? Both lung apices are clear.? Degenerative disc disease and arthropathy noted in the cervical spine ? IMPRESSION: ? 1. Atrophy and chronic ischemic change without intracranial hemorrhage or mass effect. ? 2. Mild atherosclerotic calcification without evidence of large vessel occlusion, significant stenosis or aneurysm in the head neck. ? ? Note: Any reported proximal ICA stenosis was calculated using NASCET guidelines.? Approved by: Dusty Dueñas M.D. on 11/26/2022 at 11:09? MRI brain: Radiologist's Impression: PROCEDURE:? MR HEAD/BRAIN WO CON ? INDICATIONS:? Altered mental status ? TECHNIQUE:? Noncontrast axial T1 spin echo, axial T2 fast spin echo, sagittal and axial FLAIR, coronal T2 fast spin echo, axial gradient echo, axial diffusion and ADC through the brain.? ? COMPARISON:? None. ? FINDINGS:? Image quality:? Limited by motion artifact ? CSF Spaces:? Basal cisterns are patent.? No extra-axial fluid collections.? Ventricles are normal in size and shape.? ? Brain:? No intracranial masses or hemorrhage.? [place]/white matter interface is normal.? Brainstem appears normal.? Diffusion-weighted sequence is unremarkable without evidence of acute infarct.? Normal intravascular flow voids are present.? 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 Mild atrophy ? Skull and face:? Calvarium has normal marrow signal.? Orbits appear normal.? Bilateral intraocular lens replacements noted. ? Sinuses:? Sinuses and mastoids are clear.? ? IMPRESSION:? ? Limited but unremarkable MRI of the brain without evidence of acute infarct, hemorrhage or mass lesion ? ? ? Approved by: Dusty Dueñas M.D. on 11/26/2022 at 13:34? [facility] Narrative Medical decision making narrative: After history and exam CT angiogram head neck EKG urinalysis CBC [facility] CC: Altered mental status Complicating co-morbidities: Recent surgery Data collected from: Patient and Medical records reviewed: Operative notes here November 22, 2022 Differential considered: Includes but not limited to stroke, UTI, medication reaction, new onset psychosis/dementia, dehydration, electrolyte imbalance, hypoglycemia Exam documented above, pertinent findings include: No SI no HI no hallucinations at this time Lab Test results independently reviewed as above. Pertinent findings: WBC 10.6 hemoglobin 14 hematocrit 41 sodium 136 potassium 4.6 bicarb 26 BUN 16 creatinine 1.02 glucose 166 AST 29 ALT 26 urine is clear negative ketones negative nitrate negative leukocyte esterase Independently reviewed EKG as above sinus rhythm rate [address] elevation or depression. Imaging studies independently reviewed: CT angiogram head and neck no acute process MRI brain no acute process Consultations: None indicated Treatments: Re-evaluations: 3:00 p.m.. Reviewed results with patient and . I agree with them, his symptoms likely due to side effect of oxybutynin. Each time he is had hallucinations is shortly after dosing of this medication. He has no symptoms today. In fact he improved last night because he did not receive any dose last night. His last dose was yesterday morning. Return precautions reviewed with them. Nontoxic at discharge. No hallucinations today Discussion: Appropriate for discharge home. Exam and imaging and laboratory studies are reassuring. Nontoxic and discharge. The source of his hallucinations likely due to oxybutynin. will dispose of it at the local pharmacy. No hallucinations today as he has not had any dosing Diagnosis: Medication side effect Discharge Plan Departure Patient Disposition: Home Clinical Impression: Drug side effects Instructions: Drug Interactions: What You Need to Know Activity Restrictions/Additional Instructions: Please do get rid of oxybutynin, you may dispose this at the pharmacy. Please see urologist as scheduled. See family doctor next week for re-evaluation. Return immediately if worse if any questions or concerns. Your hallucinations are likely due to side effects from the oxybutynin. Please do list this as an allergy. Prescriptions: No Action Januvia 100 MG tablet 100 mg PO QDAY Qty: 0 levothyroxine [Synthroid] 125 MCG tablet 125 mcg PO QAM Qty: 0 Lantus U-100 Insulin 100 unit/mL solution 20 unit SUBCUT BID Qty: 0 methotrexate sodium 2.5 mg tablet 20 mg PO QWEEK trazodone 50 mg tablet 50 mg PO BEDTIME PRN (Reason: sleep) ascorbic acid (vitamin C) [Vitamin C] 1,000 mg Tablet 1,000 mg PO BID aspirin 81 mg Tablet 81 mg PO DAILY saw palmetto 500 mg Capsule 500 mg PO BID Rx Instructions: give with food (meal/snack) cholecalciferol (vitamin D3) [Vitamin D3] 50 mcg (2,000 unit) Capsule 50 mcg PO DAILY phenazopyridine [Pyridium] 200 mg tablet 200 mg PO TID PRN (Reason: Bladder irritation) Qty: 30 1RF oxybutynin chloride 5 mg tablet 5 mg PO BID-TID PRN (Reason: bladder spasms) Qty: 30 1RF multivitamin with minerals Capsule 1 cap PO DAILY folic acid 1 mg tablet 1 mg PO DAILY zinc acetate 1 tab PO DAILY saw palmetto PO ciprofloxacin HCl 500 mg tablet 500 mg PO BID Qty: 7 0RF Referrals: Emerson Godoy MD [Primary Care Provider] - Stand Alone Forms: Patient Portal/API
--- NOTE | 2022-11-26 12:30 | PC.NURSE ---
Notified Dr. Portillo r/t pt bladders scan, order to flush catheter through collection port with 10ml
[2022-11-26 13:05] LABS: Appearance Urine UA CLOUDY; Bilirubin Urine UA NEGATIVE (NEGATIVE); Color Urine UA RED; Glucose Urine UA NEGATIVE (Negative); Ketones Urine UA NEGATIVE (NEGATIVE); Leukocyte Esterase Urine UA TRACE (NEGATIVE); Nitrite Urine UA NEGATIVE (Negative); Occult Blood Urine UA 3+ (Negative); Protein Urine UA 2+ (Negative); Urobilinogen Urine UA 0.2 E.U./dL (0.2); pH Urine UA 6.5 (4.5-8.0)
[2022-11-26 13:08] LABS: Bacteria Urine None Seen; Culture Indicated Urine Specimen Cultured; Mucus Urine 1+ (Negative); RBC Urine 30-100/HPF (0-5/HPF); Renal Epithelial Cells Urine 1-5/HPF (0-1/HPF); WBC Urine 5-10/HPF (0-5/HPF)
[2022-11-26 13:13] LABS: COVID19 -Nasal RAPID Negative (Negative)
[2022-11-26 13:48] LABS: PTT Partial Thromboplastin Tim 29 SECONDS (26-36)
== END 2022-11-26 15:32 | disposition home or self-care (01) ==
PROVIDERS: Internal Medicine Gastroenterology; Emergency Provider Emergency Medicine; Family Provider Family Medicine; PCP Family Medicine
DX: R44.0 Auditory hallucinations (principal); R44.1 Visual hallucinations; T44.3X5A Adverse effect of other parasympatholytics [anticholinergics and antimuscarinics] and spasmolytics, initial encounter; Z20.822 Contact with and (suspected) exposure to COVID-19; Z79.899 Other long term (current) drug therapy
CPT/HCPCS: 36415; 51798; 70496; 70498; 70551; 80053; 80329; 81001; 83605; 83690; 84145; 84443; 85025; 85610; 85730; 87040; 87086; 87635; 93005; 93010; 99284; C9803; G0480; Q9967

== ENCOUNTER → 2022-12-07 12:31 | Outpatient (CLI) | payer MEDICARE, OTHER, SELFPAY | PROVIDERS: Family Provider Family Medicine; PCP Family Medicine; Visit Provider Urology | DX: R31.0 Gross hematuria (principal); R39.9 Unspecified symptoms and signs involving the genitourinary system; N40.0 Benign prostatic hyperplasia without lower urinary tract symptoms | CPT/HCPCS: 87086 ==

== ENCOUNTER → 2022-12-22 10:11 | Outpatient (CLI) | payer MEDICARE, OTHER, SELFPAY ==
[2022-12-22 10:46] LABS: Bilirubin Urine UA NEGATIVE (NEGATIVE); Glucose Urine UA NEGATIVE (Negative); Ketones Urine UA NEGATIVE (NEGATIVE); Leukocyte Esterase Urine UA TRACE (NEGATIVE); Nitrite Urine UA NEGATIVE (Negative); Occult Blood Urine UA 2+ (Negative); Protein Urine UA 2+ (Negative); Specific Gravity Urine UA >=1.030 (1.000-1.035); Urobilinogen Urine UA 0.2 E.U./dL (0.2)
[2022-12-22 11:01] LABS: Appearance Urine UA CLOUDY; Color Urine UA RED
[2022-12-22 11:02] LABS: Bacteria Urine Occasional (0-1); Culture Indicated Urine Specimen Cultured; RBC Urine >100/HPF (0-5/HPF); Squamous Epithelial Cell Urine None Seen (0-5/HPF); WBC Urine 10-30/HPF (0-5/HPF)
== END ==
PROVIDERS: Family Provider Family Medicine; PCP Family Medicine; Referring Provider Urology; Visit Provider Urology
DX: C67.5 Malignant neoplasm of bladder neck (principal); N40.1 Benign prostatic hyperplasia with lower urinary tract symptoms; R31.0 Gross hematuria; R35.1 Nocturia; R39.9 Unspecified symptoms and signs involving the genitourinary system
CPT/HCPCS: 81001; 87077; 87086; 87186

== ENCOUNTER 2023-01-09 08:07 | Day surgery (SDC) | payer MEDICARE, OTHER, SELFPAY ==
[2023-01-04 14:46] VITALS: BMI 30.5
--- NOTE | 2023-01-09 | PATH_ITS ---
[facility] Accession Number: [id number] No. of containers..01 Tissue . 01 Material submitted: . bladder neck - RIGHT BLADDER NECK TUMOR . 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 Negative for lymphovascular invasion. Muscularis propria is not present in the biopsy. ANDRE 01/13/2023 1417 Local . 01 Comment: As part of routine type disk quality control supervisor, this case was also reviewed by Drs. Jessica Hayes and Nilesh Harvey, who agree with the interpretation. . 01 Electronically signed: . Odalys Go MD, Pathologist NPI- [id number] . 01 Gross description: . RIGHT BLADDER NECK TUMOR: Received in formalin are multiple fragment(s) of norman, soft tissue measuring 0.1 x 0.1 x 0.1 cm to 0.4 x 0.4 x 0.2 cm submitted entirely in 1 cassette(s) /OJSLYN 01/11/2023 0035 Local . 01 Pathologist provided ICD-10: C67.5 . 01 CPT . 562402 Specimen Comment: A courtesy copy of this report has been sent to [phone] Performed at: [address] [facility] [address] [place] [address] [address], [place], [place] [id number] MD Marques West MD Phone: [phone]
[2023-01-09 08:48] VITALS: BP 133/76; PULSE 83; RESP 16; O2SAT 98; BMI 30.5
--- NOTE | 2023-01-09 09:03 | PM.PREOP ---
Pre-operative Note COVID-19 COVID-19 status: Not tested Criteria for continued procedure: Delay expected to result in less-positive ultimate med/surg outcome and Non-surgical alternatives not available or appropriate per current SOC Interval Note History & Physical reviewed/Exam performed by Physician: Yes Changes to H&P: No
[2023-01-09] MEDS: LACTATED RINGERS 1,000 ML 21 ML IV (09:04)
[2023-01-09] MEDS: CIPROFLOXACIN 400 MG/200 ML PIGGYBACK 200 MG IV (09:30)
--- NOTE | 2023-01-09 09:44 | SUR.OPER ---
Lithotomy on padded OR bed, head on pillow, arms secured on padded arm boards at <90 degrees abduction. Legs secured in padded yellow fins stirrups.
--- NOTE | 2023-01-09 10:39 | PM.OP.1 ---
Procedure & Clinicians Procedure: Transurethral resection of bladder tumor (medium), right stent removal. Same procedure as scheduled: Yes Indications: This is a very pleasant 82-year-old male who had a large tumor based on the left lateral bladder wall. This was resected and it was over the ureteral orifice so a stent was placed. Patient presents at this time for a ?2nd look? procedure with possible cystoscopy, bladder biopsy, fulguration, possible Transurethral resection of bladder tumor and if acceptably healed removal of his right ureteral stent. Surgeon: Raheel Inman Click Yes if Unassisted: Yes Anesthesia Type: General Operative Notes Findings: At the time of procedure the right ureteral orifice had healed acceptably and the stent was able to be removed. The patient had a recurrent actually large tumor at approximately the 9 o'clock position on the right bladder neck. This was 2-1/2 cm in diameter appeared to be papillary and superficial. This was not present approximately 6 weeks ago at his resection. It was resected completely today there were no other areas to biopsy within the bladder the left ureteral orifice was in normal position with clear efflux. Urethra urethral meatus were normal with normal mucosa sphincter was well coapted prostate showed moderate approaching severe obstructive character. The site of previous resection was well healed with minimal bolus edema. Closure Type: not applicable Specimen(s): other (Right bladder neck tumor fragments) Applied: catheter (22 Kiswahili 30 cc Wilson catheter left in place with a proximally 30 cc in balloon.) Estimated Blood Loss (mL): 20 Blood products transfused: none Procedure in detail: Procedure in detail: After informed consent was obtained, the patient was identified brought the operating room for his placed in supine position on the table. Patient then had anesthesia induced and maintained. Showing an adequate level of anesthesia the patient was transitioned to the lithotomy position where he was prepped, draped, prepared for Transurethral procedure. After prepping draping ensuring an adequate level of anesthesia a 22 Kiswahili cystoscope was passed through the urethra prostate into the bladder where cystoscopy was performed with a 30 and 70 degree lens. The new tumor was identified. The scope was removed and the resectoscope was inserted and the tumor was sequentially resected to completion. They were points of bleeding that because of where the tumor was could not be controlled with the resectoscope therefore the resectoscope was removed cystoscope was reinserted and using a steerable Bugbee a few small slips of tumor were fulgurated and hemostasis was achieved. The 70 degree lens was once again inserted in the area of surveyed tumor appeared to be completely resected and hemostasis was good therefore the bladder was left full and the scope was removed. The 22 Kiswahili 30 cc Wilson catheter was inserted without difficulty balloon filled with 30 cc of water was placed to gravity drainage. The patient was then awakened taken to postanesthesia care unit having tolerated the procedure well patient follow up in my office in approximately 10 days for a voiding trial. There were no complications. The patient will be discharged home with his Wilson catheter. Complications: none Post-operative Condition: stable Disposition: PACU Plan for aftercare: Follow-up my office 10 days for voiding trial.
[2023-01-09 10:40] VITALS: BP 95/61; PULSE 63; RESP 14; O2SAT 94
[2023-01-09 10:46] VITALS: BP 106/70; PULSE 63; PULSE 64; RESP 11; O2SAT 94
[2023-01-09 10:50] VITALS: BP 110/68; PULSE 63; RESP 13; O2SAT 93
[2023-01-09 11:06] VITALS: BP 123/70; PULSE 63; RESP 11; TEMP 36.1; O2SAT 97
[2023-01-09 11:11] VITALS: BP 129/71; PULSE 63; RESP 14; O2SAT 98
== END 2023-01-09 11:44 | disposition home or self-care (01) ==
PROVIDERS: Family Provider Family Medicine; PCP Family Medicine; Referring Provider Urology; Visit Provider Urology
PROC: 0TBB8ZZ Excision of Bladder, Via Natural or Artificial Opening Endoscopic (ICD-10-PCS; CPT 52235; principal; 2023-01-09 09:45)
DX: C67.5 Malignant neoplasm of bladder neck (principal)
CPT/HCPCS: 52235; 82962; J0744; J2405; J2704; J3010

== ENCOUNTER → 2023-02-15 09:59 | Outpatient (CLI) | payer MEDICARE, OTHER, SELFPAY ==
[2023-02-15 10:35] LABS: Bilirubin Urine UA NEGATIVE (NEGATIVE); Color Urine UA YELLOW; Glucose Urine UA NEGATIVE (Negative); Ketones Urine UA NEGATIVE (NEGATIVE); Leukocyte Esterase Urine UA 1+ (NEGATIVE); Nitrite Urine UA NEGATIVE (Negative); Occult Blood Urine UA TRACE-INTACT (Negative); Protein Urine UA TRACE (Negative); Urobilinogen Urine UA 0.2 E.U./dL (0.2)
[2023-02-15 10:40] LABS: Appearance Urine UA Slightly Cloudy
[2023-02-15 10:44] LABS: Bacteria Urine Occasional (0-1); Culture Indicated Urine Specimen Cultured; RBC Urine None Seen (0-5/HPF); Squamous Epithelial Cell Urine None Seen (0-5/HPF); WBC Urine 5-10/HPF (0-5/HPF)
== END ==
PROVIDERS: Family Provider Family Medicine; PCP Family Medicine; Referring Provider Urology; Visit Provider Urology
DX: C67.9 Malignant neoplasm of bladder, unspecified (principal); C67.5 Malignant neoplasm of bladder neck; R31.0 Gross hematuria; R39.9 Unspecified symptoms and signs involving the genitourinary system
CPT/HCPCS: 81001; 87077; 87086; 87185; 87186

== ENCOUNTER 2023-02-28 07:50 | Day surgery (SDC) | payer MEDICARE, OTHER, SELFPAY ==
[2023-02-24 07:54] VITALS: BMI 30.5
[2023-02-28] VITALS (9 sets, daily range): BP systolic 110–142; BP diastolic 55–79; PULSE 63–79; RESP 10–16; TEMP 36.1–36.6; O2SAT 94–99; BMI 29.4
--- NOTE | 2023-02-28 | PATH_ITS ---
[facility] Accession Number: [id number] No. of containers..01 Tissue . 01 Material submitted: . bladder - BLADDER TUMORS . 01 Diagnosis: Bladder Tumors: Non-invasive low-grade papillary urothelial carcinoma. The lamina propria is negative for involvement by tumor. Negative for lymphovascular invasion. No muscularis propria identified in the biopsy. [facility] 03/07/2023 1301 Local . 01 Comment: As part of routine quality technician, this case was also reviewed by Dr. Tucker, who agrees with the interpretation. . 01 Electronically signed: . Jessica Hayes MD, Pathologist NPI- [id number] . 01 Gross description: . Received in formalin, labeled with the patient's name and bladder tumors, are four 0.2-0.5 cm white-norman biopsies, submitted entirely in cassette A1. ([id number]) /[facility] 03/04/2023 1536 Local . 01 Pathologist provided ICD-10: C67.9 . 01 CPT . 941116 Specimen Comment: A courtesy copy of this report has been sent to [phone] Performed at: [address] [facility] [address] [place] [address], [place], [place] [id number] MD Marques West MD Phone: [phone]
[2023-02-28] MEDS: LACTATED RINGERS 1,000 ML 21 ML IV (08:14)
[2023-02-28] MEDS: CIPROFLOXACIN 400 MG/200 ML PIGGYBACK 200 MG IV (09:25)
--- NOTE | 2023-02-28 09:39 | SUR.OPER ---
Lithotomy on padded OR bed, head on pillow, arms secured on padded arm boards at <90 degrees abduction. Legs secured in padded yellow fins stirrups.
[2023-02-28] MEDS: WATER FOR INJECTION,STERILE 20 ML, mitoMYcin 20 MG INTRAVESIC (10:17)
--- NOTE | 2023-02-28 10:25 | P.OP_ITS ---
Procedure & Clinicians Procedure: TURBT with bladder biopsy and fulguration and mitomycin C placement (total area greater than 5 cm) Same procedure as scheduled: Yes Indications: This 82-year-old male with known bladder cancer presented for surveillance cystoscopy and was found to have almost too numerous to count small papillary lesions distributed throughout the bladder. He comes at this time for bladder biopsy Transurethral resection of bladder tumor with fulguration and destruction of lesions and mitomycin C placement. Surgeon: Raheel Inman Click Yes if Unassisted: Yes Anesthesia Type: General Operative Notes Findings: Urethra normal to the prostate which shows moderate approaching severe obstructive character. Ureteral orifices in normal position with clear efflux. Within the bladder there are numerous almost too numerous to count small papillary lesions appearing consistent with early urothelial carcinoma. At the end of the procedure all that were visible appeared to be destroyed. A number were biopsied and resected. The total area involved with tumor was greater than 5 cm. A 20 Belgian 5 cc Buckner tip catheter was left in place 14 cc in the balloon and mitomycin was instilled via chemotherapy catheter plug. The papillary lesions all appeared superficial. They averaged 3 to 5 mm in size Closure Type: not applicable Specimen(s): other (Bladder tumor pooled) Applied: catheter ([address] Councill tip catheter 14 cc in the balloon) Estimated Blood Loss (mL): 5 Blood products transfused: none Procedure in detail: Procedure in detail: After informed consent was obtained, the patient was identified and brought the operating room where he was placed in a supine position on the operative table. Anesthesia was induced and maintained. Ensuring an adequate level of anesthesia the patient was transition to the lithotomy position where he was prepped, draped and prepared for Transurethral procedure. After prepping, draping coming ensuring and act level of anesthesia and time-out a 22 Belgian cystoscope was passed through the urethra prostate and end of the bladder were cystoscopy was performed. Biopsy forceps was then inserted and a number of the tumors were resected with the biopsy forceps. The cystoscope was then exchanged for the continuous-flow resectoscope. This was inserted via direct vision into the bladder. The working element with the ?button? was inserted and the lesion sequentially destroyed till all that were apparent had been resected/destroyed. Bladder was drained hemostasis appeared to be good the bladder was filled the scope was removed and the catheter was passed through the urethra prostate and in the bladder without difficulty the balloon was filled with 14 cc of sterile water and was placed to drainage to where it was drained the chemotherapeutic catheter plug was put in place in the mitomycin was instilled. The patient at this point was awakened having tole rated procedure well without complication he will be transferred to the postanesthesia care unit for recovery and the mitomycin indwelling time. Patient will be discharged home with a catheter to follow up my office in approximately 10-14 days. Complications: none Post-operative Condition: stable Disposition: PACU Plan for aftercare: After the mitomycin dwell time the patient will be discharged to home with his Wilson catheter to be followed up in my office in 10-14 days.
--- NOTE | 2023-02-28 12:12 | SUR.PHASEII ---
Placed catheter bag to drainage bag. 900 cc of blood urine was drained. Pt tolerated well. Pt did have bladder spasms and leaked around the catheter. Pt's said this has happened at home before. Pt states he is ready to go home. No pain at discharge. No distress noted. Pt and both state they understand discharge instructions and pt. did not want a leg bag.
== END 2023-02-28 12:25 | disposition home or self-care (01) ==
PROVIDERS: Family Provider Family Medicine; PCP Family Medicine; Referring Provider Urology; Visit Provider Urology
PROC: 0TBB8ZZ Excision of Bladder, Via Natural or Artificial Opening Endoscopic (ICD-10-PCS; CPT 52240; principal; 2023-02-28 09:15)
DX: C67.9 Malignant neoplasm of bladder, unspecified (principal)
CPT/HCPCS: 52240; 82962; J0744; J1100; J2405; J2704; J3010; J9280

== ENCOUNTER → 2023-04-12 11:12 | Outpatient (CLI) | payer MEDICARE, OTHER, SELFPAY | PROVIDERS: Family Provider Family Medicine; PCP Family Medicine; Visit Provider Urology | DX: N39.0 Urinary tract infection, site not specified (principal); R31.0 Gross hematuria; R39.9 Unspecified symptoms and signs involving the genitourinary system | CPT/HCPCS: 81002; 87077; 87086; 87186 ==

== ENCOUNTER → 2023-05-19 10:24 | Outpatient (CLI) | payer MEDICARE, OTHER, SELFPAY ==
[2023-05-19 10:53] LABS: Appearance Urine UA SL CLOUDY; Bilirubin Urine UA NEGATIVE (NEGATIVE); Color Urine UA YELLOW; Glucose Urine UA NEGATIVE (Negative); Ketones Urine UA NEGATIVE (NEGATIVE); Leukocyte Esterase Urine UA TRACE (NEGATIVE); Nitrite Urine UA NEGATIVE (Negative); Occult Blood Urine UA NEGATIVE (Negative); Protein Urine UA 1+ (Negative); Specific Gravity Urine UA 1.025 (1.000-1.035); pH Urine UA 5.5 (4.5-8.0)
[2023-05-19 11:05] LABS: Bacteria Urine Moderate (10-30); RBC Urine 5-10/HPF (0-5/HPF); Squamous Epithelial Cell Urine 1-5 /HPF (0-5/HPF); WBC Urine 30-100/HPF (0-5/HPF)
[2023-05-19 11:06] LABS: Culture Indicated Urine Specimen Cultured; Mucus Urine 2+ (Negative)
== END ==
PROVIDERS: Family Provider Family Medicine; PCP Family Medicine; Visit Provider Urology
DX: R30.0 Dysuria (principal); C67.9 Malignant neoplasm of bladder, unspecified; R39.9 Unspecified symptoms and signs involving the genitourinary system; N40.1 Benign prostatic hyperplasia with lower urinary tract symptoms; R35.1 Nocturia; Z87.891 Personal history of nicotine dependence
CPT/HCPCS: 51798; 81001; 81002; 87077; 87086; 87147; 87186; 99214

== ENCOUNTER 2023-05-23 09:42 | Day surgery (SDC) | payer MEDICARE, OTHER, SELFPAY ==
[2023-05-22 10:45] VITALS: BMI 30.5
[2023-05-23] VITALS (7 sets, daily range): BP systolic 106–145; BP diastolic 72–86; PULSE 67–88; RESP 14–16; TEMP 36.1–36.4; O2SAT 95–99; BMI 30.5
--- NOTE | 2023-05-23 | PATH_ITS ---
[facility] Accession Number: [id number] No. of containers..01 Tissue . 01 Material submitted: . body - PAPILLARY POOL TUMOR . 01 Clinical history: . TRANSURETHRAL RESECTION BLADDER TUMOR . 01 Diagnosis: Papillary Pool Tumor [sic], Transurethral Resection of Bladder Tumor: Noninvasive low-grade papillary urothelial carcinoma. Negative for involvement of lamina propria. No lymphovascular invasion identified. No muscularis propria identified in the biopsy. [facility] 05/29/2023 1551 Local . 01 Electronically signed: . Jessica Hayes MD, Pathologist NPI- [id number] . 01 Gross description: . Received in formalin, labeled with the patient's name on container and papillary pool tumor on requisition, is a 1.3 x 0.4 x 0.2 cm aggregate of pink-white tissue biopsies, which are filtered and submitted entirely in A1. ([id number]) /[facility] 05/25/2023 1630 Local . 01 Pathologist provided ICD-10: Z85.51 . 01 CPT . 198909 Specimen Comment: A courtesy copy of this report has been sent to [phone] Performed at: 01 [facility] [address] [place] [address] [facility] [place], [place], [place] [id number] MD Marques West MD Phone: [phone]
--- NOTE | 2023-05-23 10:27 | PM.PREOP ---
Pre-operative Note COVID-19 COVID-19 status: Not tested Interval Note History & Physical reviewed/Exam performed by Physician: Yes Changes to H&P: No
[2023-05-23] MEDS: LACTATED RINGERS 1,000 ML 120 ML IV (10:38)
[2023-05-23] MEDS: VANCOMYCIN 1,000 MG/200 ML PIGGYBACK 200 MG IV (10:41)
--- NOTE | 2023-05-23 11:34 | SUR.OPER ---
Lithotomy on padded OR bed, head on pillow, arms secured on padded arm boards at <90 degrees abduction. Legs secured in padded yellow fins stirrups.
[2023-05-23] MEDS: WATER FOR INJECTION,STERILE 20 ML, mitoMYcin 20 MG INTRAVESIC (11:36)
--- NOTE | 2023-05-23 12:16 | P.OP_ITS ---
Procedure & Clinicians Procedure: Transurethral resection of bladder tumor and fulguration of bladder tumor with Wilson catheter placement and mitomycin instillation Same procedure as scheduled: Yes Indications: This 83-year-old male presents for the above procedure having had recent flexible cystoscopy which shows multiple small recurrent bladder tumors. Approaching perhaps 40 to 45 and number. He presents this time for Transurethral resection of bladder tumor and fulguration of bladder tumor with mitomycin instillation. Surgeon: Raheel Inman Click Yes if Unassisted: Yes Anesthesia Type: General Operative Notes Findings: Findings: Urethral meatus is normal urethra is normal along its length and sphincter as well coapted. Prostate shows moderate to severe obstructive character. The left ureteral orifices normal with clear efflux. The right ureteral orifice shows scar tissue around it from previous resection but is widely patent with clear efflux. Distributed throughout the bladder are 45-50 papillary tumors. The preponderance of which is at the dome. There are scars from previous resection and at the end of the procedure there appeared to be no remaining papillary lesions. A 22 Kyrgyz 5 cc Wilson catheter was left in place with 14 cc in the balloon and mitomycin was instilled. Closure Type: not applicable Specimen(s): other (Pooled papillary bladder tumor) Estimated Blood Loss (mL): 10 Blood products transfused: none Procedure in detail: Procedure in detail: After informed consent was obtained, the patient was identified and brought to the operating room where he was placed on the table in the supine position. Once their anesthesia was induced and maintained. His hearing an adequate level of anesthesia the patient was transitioned to the lithotomy position where he was prepped, draped and prepared for Transurethral procedure. After prepping, draping, ensuring an adequate level of anesthesia and time-out a 22 Kyrgyz cystoscope was inserted and cystoscopy performed. Biopsy forceps was inserted and multiple of the papillary lesions were sampled and forward to pathology as pooled papillary bladder tumor. The cystoscope was then exchanged for the continuous-flow resectoscope and button. And then using the button the tumors were resected and fulgurated sequentially scanning the entire bladder. This was done till all papillary lesions in evidence were destroyed. With this the bladder was drained and filled drained and filled hemostasis appeared good bladder was left full scope was removed in the 22 Kyrgyz catheter passed through the urethra into the bladder without difficulty. The balloon was filled with 14 cc of sterile water and placed to gravity drainage draining incompletely. The chemotherapeutic plug her catheter plug was put in place and the mitomycin was instilled. At this point the patient was awakened having tolerated the procedure well there were no complications patient is to be transferred to the postanesthesia care unit for recovery and dwell time for the mitomycin. After the appropriate amount of dwell time 1-1/2-2 hours the patient will be discharged to home to follow up my office the patient is to go home with a Wilson catheter. Complications: none Post-operative Condition: stable Disposition: PACU Plan for aftercare: After the mitomycin dwell time patient is to be discharged home with his Wilson catheter to follow up my office in approximately 10-14 days for a voiding trial.
--- NOTE | 2023-05-23 14:48 | SUR.PHASEII ---
Pt mitomycin drained at 1325 per chemo protocol. New overnight bag placed after chemo removed. declined a leg bag. has been caring for cath at home for a long time. No questions. Pt steady at bedside to after getting dressed.
== END 2023-05-23 14:15 | disposition home or self-care (01) ==
PROVIDERS: Family Provider Family Medicine; PCP Family Medicine; Referring Provider Urology; Visit Provider Urology
PROC: 0TBB8ZZ Excision of Bladder, Via Natural or Artificial Opening Endoscopic (ICD-10-PCS; CPT 52234; principal; 2023-05-23 12:00)
DX: C67.9 Malignant neoplasm of bladder, unspecified (principal)
CPT/HCPCS: 52234; J1100; J2405; J2704; J3010; J9280

== ENCOUNTER → 2023-06-07 15:36 | Outpatient (CLI) | payer MEDICARE, OTHER, SELFPAY | PROVIDERS: Family Provider Family Medicine; PCP Family Medicine; Visit Provider Urology | DX: C67.9 Malignant neoplasm of bladder, unspecified (principal); N40.1 Benign prostatic hyperplasia with lower urinary tract symptoms; R35.1 Nocturia; R31.0 Gross hematuria; R39.9 Unspecified symptoms and signs involving the genitourinary system; Z87.891 Personal history of nicotine dependence | CPT/HCPCS: 51798; 81002; 87086 ==

== ENCOUNTER → 2023-06-28 11:00 | Outpatient (CLI) | payer MEDICARE, OTHER, SELFPAY | PROVIDERS: Family Provider Family Medicine; PCP Family Medicine; Visit Provider Urology | DX: C67.9 Malignant neoplasm of bladder, unspecified (principal); N39.0 Urinary tract infection, site not specified; C67.5 Malignant neoplasm of bladder neck; R31.0 Gross hematuria; R39.9 Unspecified symptoms and signs involving the genitourinary system | CPT/HCPCS: 81002; 87077; 87086; 87186 ==

== ENCOUNTER 2023-07-11 08:35 | Day surgery (SDC) | payer MEDICARE, OTHER, SELFPAY ==
[2023-07-06 08:20] VITALS: BMI 30.5
[2023-07-11] VITALS (12 sets, daily range): BP systolic 121–162; BP diastolic 68–91; PULSE 72–85; RESP 12–22; TEMP 36.5–37; O2SAT 92–99; BMI 30.5
--- NOTE | 2023-07-11 | PATH_ITS ---
[facility] Accession Number: [id number] No. of containers..01 Tissue . 01 Material submitted: . body - RIGHT POSTERIOR LATERAL TUMOR . 01 Diagnosis: Bladder, Right Posterior Lateral Tumor, Biopsy: Noninvasive, low-grade papillary urothelial carcinoma. No involvement of lamina propria. No lymphovascular invasion identified. No muscularis propria identified in the biopsy. . [facility] 07/19/2023 1024 Local . 01 Comment: As part of routine software quality analyst, this case was also reviewed by Dr. Rosario Winter, who agrees with the interpretation. . A voice message was left for call back on 07/19/[address] Go. Case was signed out at 1330 hours. . 01 Electronically signed: . Odalys Go MD, Pathologist NPI- [id number] . 01 Gross description: . RIGHT POSTERIOR LATERAL TUMOR: Received in formalin is 3 fragment(s) of norman, soft tissue measuring 0.3 x 0.1 x 0.1 cm to 0.1 x 0.1 x 0.1 cm submitted entirely in 1 cassette(s) /[facility] 07/12/2023 0501 Local . 01 Pathologist provided ICD-10: D49.4 . 01 CPT . 325472 Specimen Comment: A courtesy copy of this report has been sent to [phone] Performed at: 01 [facility] [address] [place] [address], [place], [place] [id number] MD Marques West MD Phone: [phone]
[2023-07-11] MEDS: LACTATED RINGERS 1,000 ML 42 ML IV (09:32)
--- NOTE | 2023-07-11 09:38 | PM.PREOP ---
Pre-operative Note COVID-19 COVID-19 status: Not tested Interval Note History & Physical reviewed/Exam performed by Physician: Yes Changes to H&P: No
[2023-07-11] MEDS: CEFAZOLIN 2 GM/100 ML PREMIX 100 ML IV (10:15)
--- NOTE | 2023-07-11 10:36 | SUR.OPER ---
Lithotomy on padded OR bed, head on pillow, arms secured on padded arm boards at <90 degrees abduction. Legs secured in padded yellow fins stirrups.
[2023-07-11] MEDS: WATER FOR INJECTION,STERILE 20 ML, mitoMYcin 20 MG INTRAVESIC (10:52)
--- NOTE | 2023-07-11 11:07 | PM.OP.1 ---
Procedure & Clinicians Procedure: Transurethral resection of bladder tumor small with instillation of mitomycin C Same procedure as scheduled: Yes Indications: This 83-year-old male has a history of bladder cancer. He would came in for surveillance cystoscopy to assess healing and was found to have 2 small recurrent tumors presents at this time for Transurethral resection of bladder tumor small with instillation of mitomycin C. Surgeon: Raheel Inman Click Yes if Unassisted: Yes Anesthesia Type: General Operative Notes Findings: Findings: Urethral meatus is normal, urethra is normal along its length with normal mucosa, sphincter as well coapted and prostatic fossa shows moderate obstructive character. Within the bladder the ureteral orifices were in normal position with clear efflux. There is scarring around the right ureteral orifice from previous resection but it is widely patent. The 2 tumors are noted on the posterior lateral right bladder. There are small papillary in appearance in the dome there are diverticula and continued healing from the previously done large resection of multiple multiple tumors. There are no other papillary tumors or areas that what appeared to be recurrent tumor. At the end of the procedure all papillary lesions were removed and the bases and margins cauterized. Points of bleeding were controlled with the electrocautery. A 20 Romansh 5 cc Wilson catheter was left in place with 14 cc in the balloon having had 20 cc of mitomycin instilled. Closure Type: not applicable Specimen(s): other (Bladder tumor posterolateral right) Applied: catheter ([address] Romansh [address] Wilson catheter with 14 cc in the balloon) Estimated Blood Loss (mL): 5 Blood products transfused: none Procedure in detail: Procedure in detail: After informed consent was obtained, the patient was identified and brought to the operating room where he was placed in his supine position on the table. Once there anesthesia was induced and maintained. Ensuring an adequate level of anesthesia the patient was transitioned to the lithotomy position where he was prepped, draped, prepared for Transurethral procedure. After ensuring an adequate level of anesthesia, administration of antibiotics, prepping, draping and time-out a 22 Romansh cystoscope was passed through the urethra into the bladder where cystoscopy was performed with the 30 and 70 degree lens. The tumors were identified and using the biopsy forceps they were resected. Bugbee electrode was then employed to control bleeding and cauterize the base and margins of the tumor sites. All obvious tumor material was removed and or destroyed with the cautery and Bugbee. There were other points of bleeding which were controlled with the Bugbee. Bladder was then filled drained filled drained filled and the scope removed. Twenty Romansh catheter was then passed through the urethra prostate and bladder without difficulty the balloon was filled with 14 cc of sterile water and placed to gravity drainage to where it completely drain the bladder. The chemo therapeutic catheter plug was then put in place in the mitomycin instilled in his sealed system. At this point the patient was awakened having tolerated the procedure well to be transferred to the postanesthesia care unit for recovery and dwell time for the mitomycin. There were no complications. Complications: none Post-operative Condition: stable Disposition: PACU Plan for aftercare: Patient will have the mitomycin in the bladder per protocol and once this was done the catheter will be removed after the mitomycin in his drain and the patient will be discharged to home to follow up my office in approximately 10 days.
--- NOTE | 2023-07-11 11:40 | SUR.PHASEI ---
Report given to Monique.
--- NOTE | 2023-07-11 13:22 | SUR.PHASEII ---
1252 drained bladder of mitomycin.
--- NOTE | 2023-07-11 13:36 | SUR.PHASEII ---
1315 once bladder empty, removed paul. Patient tolerated well.
== END 2023-07-11 13:30 | disposition home or self-care (01) ==
PROVIDERS: Family Provider Family Medicine; PCP Family Medicine; Referring Provider Urology; Visit Provider Urology
PROC: 0TBB8ZZ Excision of Bladder, Via Natural or Artificial Opening Endoscopic (ICD-10-PCS; CPT 52234; principal; 2023-07-11 10:00)
DX: D09.0 Carcinoma in situ of bladder (principal)
CPT/HCPCS: 52234; 82962; J0690; J2405; J2704; J3010; J9280

== ENCOUNTER → 2023-07-21 12:06 | Outpatient (CLI) | payer MEDICARE, OTHER, SELFPAY ==
[2023-07-21 18:02] LABS: Appearance Urine UA SL CLOUDY; Bilirubin Urine UA NEGATIVE (NEGATIVE); Color Urine UA YELLOW; Glucose Urine UA NEGATIVE (Negative); Ketones Urine UA NEGATIVE (NEGATIVE); Leukocyte Esterase Urine UA TRACE (NEGATIVE); Nitrite Urine UA NEGATIVE (Negative); Occult Blood Urine UA 2+ (Negative); Protein Urine UA 2+ (Negative); Specific Gravity Urine UA 1.025 (1.000-1.035); Urobilinogen Urine UA 0.2 E.U./dL (0.2); pH Urine UA 5.5 (4.5-8.0)
[2023-07-21 18:07] LABS: Bacteria Urine None Seen; Culture Indicated Urine Specimen Cultured; RBC Urine 10-30/HPF (0-5/HPF); Squamous Epithelial Cell Urine None Seen (0-5/HPF); WBC Urine 1-5/HPF (0-5/HPF)
== END ==
PROVIDERS: Family Provider Family Medicine; PCP Family Medicine; Visit Provider Urology
DX: C67.9 Malignant neoplasm of bladder, unspecified (principal); N32.81 Overactive bladder; N40.1 Benign prostatic hyperplasia with lower urinary tract symptoms; R35.1 Nocturia; R39.9 Unspecified symptoms and signs involving the genitourinary system; Z87.891 Personal history of nicotine dependence
CPT/HCPCS: 81001; 81002; 87077; 87086; 87186; 99214

== ENCOUNTER → 2023-07-25 15:56 | Outpatient (CLI) | payer MEDICARE, OTHER, SELFPAY | PROVIDERS: Family Provider Family Medicine; PCP Family Medicine; Visit Provider Urology | DX: C67.9 Malignant neoplasm of bladder, unspecified (principal); N39.0 Urinary tract infection, site not specified; N32.81 Overactive bladder | CPT/HCPCS: 52000; 81002; 87086 ==

== ENCOUNTER → 2023-08-28 13:26 | Outpatient (CLI) | payer MEDICARE, OTHER, SELFPAY ==
--- NOTE | 2023-08-28 13:28 | DI.MRI.S_ITS ---
PROCEDURE: MR HEAD/BRAIN WO CON INDICATIONS: Memory Changes TECHNIQUE: Noncontrast axial T1 spin echo, axial T2 fast spin echo, sagittal and axial FLAIR, coronal T2 fast spin echo, axial gradient echo, axial diffusion and ADC through the brain. COMPARISON: [facility], , MR HEAD/BRAIN WO CON, 11/26/2022, 13:29. FINDINGS: Image quality: Excellent. CSF Spaces: Basal cisterns are patent. No extra-axial fluid collections. Ventricles are normal in size and shape. Brain: No intracranial masses or hemorrhage. [place]/white matter interface is normal. Brainstem appears normal. Diffusion-weighted images demonstrate no acute infarct. Normal intravascular flow voids are present. Moderate generalized atrophy and trace multifocal white matter chronic ischemic change. Hippocampus is symmetric and appropriate. Skull and face: Calvarium has normal marrow signal. Orbits appear normal. Sinuses: Sinuses and mastoids are clear. IMPRESSION: Age-appropriate atrophy and chronic ischemic change without acute hemorrhage, infarct or mass lesion Approved by: Dusty Dueñas M.D. on 08/28/2023 at 18:26
== END ==
LOC: MRI 13:27
PROVIDERS: Family Provider Family Medicine; PCP Family Medicine; Referring Provider Family Medicine; Visit Provider Family Medicine
DX: R41.3 Other amnesia (principal)
CPT/HCPCS: 70551

== ENCOUNTER 2023-11-14 09:15 | Day surgery (SDC) | payer MEDICARE, OTHER, SELFPAY ==
[2023-11-08 13:40] VITALS: BMI 28.7
[2023-11-14] VITALS (8 sets, daily range): BP systolic 106–142; BP diastolic 55–85; PULSE 69–85; RESP 11–16; TEMP 36.1–36.3; O2SAT 94–97; BMI 28.7
--- NOTE | 2023-11-14 | PATH_ITS ---
[facility] Accession Number: [id number] No. of containers..01 Tissue . 01 Material submitted: . bladder - LEFT LATERAL WALL BLADDER TUMOR . 01 Diagnosis: URINARY BLADDER, LEFT LATERAL WALL, BIOPSY: Noninvasive papillary urothelial carcinoma, low grade. Muscularis propria not present in specimen. [facility] 11/17/2023 1251 Local . 01 Electronically signed: . Opal Tucker MD, Pathologist NPI- [id number] . 01 Gross description: . LEFT LATERAL WALL BLADDER TUMOR: Received in formalin are 2 fragment(s) of norman, soft tissue measuring 0.2 x 0.2 x 0.2 cm to 0.3 x 0.3 x 0.2 cm submitted entirely in 1 cassette(s) /JOSLYN 11/15/2023 1856 Local . 01 Pathologist provided ICD-10: C67.9 . 01 CPT . 417201 Specimen Comment: A courtesy copy of this report has been sent to [phone] Performed at: 01 [facility] [address] [place] [address], [place], [place] [id number] MD Marques West MD Phone: [phone]
[2023-11-14] MEDS: LACTATED RINGERS 1,000 ML 21 ML IV (09:33)
--- NOTE | 2023-11-14 11:22 | PM.PREOP ---
Pre-operative Note COVID-19 COVID-19 status: Not tested Interval Note History & Physical reviewed/Exam performed by Physician: Yes Changes to H&P: No
[2023-11-14] MEDS: CEFAZOLIN 2 GM/100 ML PREMIX 100 ML IV (12:00)
--- NOTE | 2023-11-14 12:20 | SUR.OPER ---
Lithotomy on padded OR bed, head on pillow, arms secured on padded arm boards at <90 degrees abduction. Legs secured in padded yellow fins stirrups.
--- NOTE | 2023-11-14 13:06 | P.OP_ITS ---
Procedure & Clinicians Procedure: Transurethral resection of the bladder tumor small with instillation of mitomycin Same procedure as scheduled: Yes Indications: This 83-year-old male with known history of bladder cancer who finished his induction course of BCG presented for surveillance cystoscopy and was noted to have several small recurrent tumors primarily based on the left posterolateral bladder. He presents this time for resection of these tumors and instillation of mitomycin. Surgeon: Raheel Inman Click Yes if Unassisted: Yes Anesthesia Type: General Operative Notes Findings: Findings: Urethral meatus and urethra normal along their length with normal mucosa, the sphincter as well coapted the prostate exhibits moderate to severe obstructive character with a small amount of bulging into the bladder. On the left posterolateral wall there were 6 small tumors 1 approaching a cm in size the rest smaller than this. This was resected and then the tumors were fulgurated and cauterized. There was a single tumor on the right lateral wall which was also fulgurated. The bladder exhibited multiple and many scars, severe trabeculation, cellules. At the end of the procedures the ureteral orifices were intact with clear efflux. The patient had a 22 Bangladeshi [place] tip catheter placed and mitomycin instilled at the end of the procedure there were no other significant abnormalities. Closure Type: not applicable Specimen(s): other (Left posterolateral bladder tumors) Prosthetic devices, grafts, tissues, transplants, or devices: 22 Bangladeshi [place] tip catheter [address] with 14 cc in the balloon. Applied: catheter (Twenty-two Bangladeshi [place] tip catheter 2 way with 14 cc in the balloon) Estimated Blood Loss (mL): 10 Blood products transfused: none Procedure in detail: Procedure in detail: After informed consent was obtained, the patient was identified brought to the operating room where he was placed in his supine position on the table. Once their anesthesia was induced to maintain. Ensuring an adequate level of anesthesia the patient was transition to the lithotomy position where he was prepped, draped, prepared for Transurethral procedure. After prepping, draping, ensuring an adequate level of anesthesia, time-out, administration of antibiotics a 22 Bangladeshi cystoscope was passed through the urethra prostate into the bladder where cystoscopy was performed with the 30 70 and 12 degree lens. The tumors in the left lateral wall were identified and using the biopsy forceps the 2 largest tumors were resected. These tumors were approximately 6 in number the largest tumor was a cm to 1.25 cm. The steerable Bugbee electrode was then inserted in the base of this resection was cauterized and hemostasis achieved. Margin was then fulgurated. As were the early seemingly low-grade small tumors. Attention was then turned to the right side where there was a single small perhaps 0.5 cm small papillary lesion which was then fulgurated. Cystoscopy was then for formed again with 30, 70 and 12 degree lens no further tumors were noted hemostasis appeared good the bladder was left full and the scope backed out. Prior to being backed out the ureteral orifices were identified and were intact with clear efflux. With the scope removed the 22 Bangladeshi catheter was passed easily into the bladder the balloon filled with 14 cc of sterile water and placed to gravity drainage where it was drained completely. The chemo therapeutic catheter plug was then inserted in the mi tomycin instilled. At this point having tolerated the procedure well the patient was awakened taken to the postanesthesia care unit for recovery and the mitomycin indwelling time. There were no complications. Complications: none Post-operative Condition: stable Disposition: PACU Plan for aftercare: Patient to be sent home with a catheter to follow up in my office morning for voiding trial.
--- NOTE | 2023-11-14 13:51 | SUR.PHASEII ---
Received into phase 2. Pt is in right side-llying position. resting quietly. VSS, sipping water. No complaints voiced.
[2023-11-14] MEDS: OXYCODONE IR 5 MG TABLET PO (15:00)
--- NOTE | 2023-11-14 16:13 | SUR.PHASEII ---
mytomycin drained per protocol. new bedside bag attached and stat lock placed. pt and understand discharge inst.
== END 2023-11-14 15:05 | disposition home or self-care (01) ==
PROVIDERS: Family Provider Family Medicine; PCP Family Medicine; Referring Provider Urology; Visit Provider Urology
PROC: 0TBB8ZZ Excision of Bladder, Via Natural or Artificial Opening Endoscopic (ICD-10-PCS; CPT 52234; principal; 2023-11-14 10:45)
DX: C67.9 Malignant neoplasm of bladder, unspecified (principal)
CPT/HCPCS: 52234; 82962; J0690; J1100; J2405; J2704; J3010

== ENCOUNTER → 2023-12-14 11:02 | Outpatient (CLI) | payer MEDICARE, OTHER, SELFPAY | PROVIDERS: Family Provider Family Medicine; PCP Family Medicine; Visit Provider Urology | DX: N39.0 Urinary tract infection, site not specified (principal) | CPT/HCPCS: 87086 ==

== ENCOUNTER → 2023-12-21 11:08 | Outpatient (CLI) | payer MEDICARE, OTHER, SELFPAY | PROVIDERS: Family Provider Family Medicine; PCP Family Medicine; Visit Provider Urology | DX: N39.0 Urinary tract infection, site not specified (principal) | CPT/HCPCS: 87077; 87086 ==

== ENCOUNTER → 2023-12-28 10:47 | Outpatient (CLI) | payer MEDICARE, OTHER, SELFPAY | PROVIDERS: Family Provider Family Medicine; PCP Family Medicine; Visit Provider Urology | DX: N39.0 Urinary tract infection, site not specified (principal) | CPT/HCPCS: 87086 ==

== ENCOUNTER → 2024-01-04 11:34 | Outpatient (CLI) | payer MEDICARE, OTHER, SELFPAY | PROVIDERS: Family Provider Family Medicine; PCP Family Medicine; Visit Provider Urology | DX: N39.0 Urinary tract infection, site not specified (principal) | CPT/HCPCS: 87086 ==

== ENCOUNTER → 2024-01-11 11:42 | Outpatient (CLI) | payer MEDICARE, OTHER, SELFPAY | PROVIDERS: Family Provider Family Medicine; PCP Family Medicine; Visit Provider Urology | DX: N39.0 Urinary tract infection, site not specified (principal) | CPT/HCPCS: 87086 ==

== ENCOUNTER → 2024-01-19 10:11 | Outpatient (CLI) | payer MEDICARE, OTHER, SELFPAY | PROVIDERS: Family Provider Family Medicine; PCP Family Medicine; Visit Provider Urology | DX: N39.0 Urinary tract infection, site not specified (principal) | CPT/HCPCS: 87086 ==

== ENCOUNTER → 2024-01-24 10:59 | Outpatient (CLI) | payer MEDICARE, OTHER, SELFPAY | PROVIDERS: Family Provider Family Medicine; PCP Family Medicine; Visit Provider Urology | DX: C67.9 Malignant neoplasm of bladder, unspecified (principal); R39.9 Unspecified symptoms and signs involving the genitourinary system | CPT/HCPCS: 51720; 81002; 87086; J9201 ==

== ENCOUNTER → 2024-01-31 10:53 | Outpatient (CLI) | payer MEDICARE, OTHER, SELFPAY | PROVIDERS: Family Provider Family Medicine; PCP Family Medicine; Visit Provider Urology | DX: N39.0 Urinary tract infection, site not specified (principal) | CPT/HCPCS: 87086 ==

== ENCOUNTER → 2024-03-22 13:48 | Outpatient (CLI) | payer MEDICARE, OTHER, SELFPAY | PROVIDERS: Family Provider Family Medicine; PCP Family Medicine; Visit Provider Urology | DX: N39.0 Urinary tract infection, site not specified (principal) | CPT/HCPCS: 87086 ==

== ENCOUNTER 2024-04-09 08:32 | Day surgery (SDC) | payer MEDICARE, OTHER, SELFPAY ==
[2024-03-21 13:04] VITALS: BMI 26.9
[2024-04-09] VITALS (7 sets, daily range): BP systolic 126–140; BP diastolic 58–80; PULSE 76–82; RESP 13–19; TEMP 36.4–36.7; O2SAT 94–99; BMI 26.9
--- NOTE | 2024-04-09 | PATH_ITS ---
[facility] Accession Number: [id number] No. of containers..02 Tissue . 01 Material submitted: . PART A: bladder, dome - DOME OF BLADDER PART B: bladder, dome - LEFT DOME OF BLADDER . 01 Diagnosis: A. URINARY BLADDER, DOME, BIOPSY: Minute foci of papillary urothelial carcinoma, low grade, noninvasive. Microscopic extent of involvement: No invasion in the subepithelial connective tissue/lamina propria. Negative for lymphovascular invasion. Muscularis propria is not present. . B. URINARY BLADDER, LEFT DOME, BIOPSY: Minute foci of papillary urothelial carcinoma, low grade, noninvasive. Microscopic extent of involvement: No invasion in the subepithelial connective tissue/lamina propria. Negative for lymphovascular invasion. Muscularis propria is not present. V 04/12/2024 1540 Local . 01 Comment: Multiple deeper levels have been examined on parts A and B. . 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 Jessica Hayes, who agrees with the interpretation. . 01 Electronically signed: . Joseph Cobb MD, Pathologist NPI- [id number] . 01 Gross description: . A. Received in formalin with two patient identifiers and dome of bladder, are two norman soft tissue fragments, 0.4 to 0.6 cm in greatest dimension. Submitted in A1. B. Received in formalin with two patient identifiers and left dome of bladder, is a single norman soft tissue fragment, 0.2 cm in greatest dimension. Submitted in B1. ([id number]) . /MRV 04/10/2024 1435 Local . 01 Pathologist provided ICD-10: C67.9 . 01 CPT . 085850, 175751 Specimen Comment: A courtesy copy of this report has been sent to [phone] Performed at: [address] [facility], [place], [place] [id number] MD Marques West MD Phone: [phone]
[2024-04-09] MEDS: LACTATED RINGERS 1,000 ML 42 ML IV (09:00)
--- NOTE | 2024-04-09 09:06 | PM.PREOP ---
Pre-operative Note COVID-19 COVID-19 status: Not tested Interval Note History & Physical reviewed/Exam performed by Physician: Yes Changes to H&P: No
[2024-04-09] MEDS: CEFAZOLIN 2 GM/100 ML PREMIX 100 ML IV (09:48)
--- NOTE | 2024-04-09 10:01 | SUR.OPER ---
Lithotomy on padded OR bed, head on pillow, arms secured on padded arm boards at <90 degrees abduction. Legs secured in padded yellow fins stirrups.
[2024-04-09] MEDS: WATER FOR INJECTION,STERILE 20 ML, mitoMYcin 20 MG INTRAVESIC (10:04)
--- NOTE | 2024-04-09 10:45 | P.OP_ITS ---
Procedure & Clinicians Procedure: Transurethral resection of bladder tumor small, instillation of mitomycin, Wilson catheter placement. Same procedure as scheduled: Yes Indications: This 83-year-old male with known bladder cancer returns for surveillance cystoscopy and was found to have 2 small papillary recurrent lesions he presents at this time for Transurethral resection of bladder tumor small with instillation of mitomycin and Wilson catheter placement. Surgeon: Raheel Inman Click Yes if Unassisted: Yes Anesthesia Type: General Operative Notes Findings: Urethral meatus is normal urethra is normal along its length with normal mucosa sphincter as well coapted the prostate exhibits moderate approaching severe o bstructive character with a small amount of bulging into the bladder the ureteral orifices in normal position with clear efflux. There are multiple scars throughout the bladder cephalad there are 2 papillary lesions which were small which were removed there is some erythema cellules and perhaps small diverticula noted particularly at the dome but no obvious gross tumor. An 18 Tuvaluan 5 cc Wilson catheter was left in place with 10 cc of sterile water in the balloon. The mitomycin he had been instilled in the place and left the operating room with the chemotherapeutic catheter plug in place. There were no other abnormalities noted. Closure Type: not applicable Specimen(s): other (1. Bladder tumor dome, 2. Dome left side.) Prosthetic devices, grafts, tissues, transplants, or devices: Eighteen Tuvaluan [address] Wilson catheter with 10 cc in balloon. Estimated Blood Loss (mL): 5 Blood products transfused: none Procedure in detail: Procedure in detail: After informed consent was obtained, the patient was identified and brought to the operating room where he was placed in his supine position on the table. Once there anesthesia was induced and maintained. Ensuring an adequate level of anesthesia the patient was transitioned to the lithotomy position where he was prepped, draped, prepared for Transurethral procedure. Ensuring an adequate level of anesthesia and after administration of antibiotics and and time-out a 22 Tuvaluan cystoscope was passed through the urethra prostate and into the bladder where cystoscopy was performed with a 30 70 and 12 degree lens. With a tumors identified biopsy forceps was used to remove each of the tumor separately. Bugbee electrode was then inserted in points of bleeding were controlled with the electrocautery and fulguration was performed creating a margin around each of the resection site. Bladder was filled drained filled and drained hemostasis remained good. And then careful cystoscopy was once again performed no other papillary lesions were noted in the bladder was left full the scope was removed and the 18 Tuvaluan catheter passed into the bladder without difficulty the balloon was filled with 10 cc of sterile water and placed to gravity drainage in the bladder to drain completely. The chemotherapeutic cath plug was then installed in the Wilson catheter. And the mitomycin instilled the syringe was from the plug the plug left in place patient was awakened having tolerated the procedure well to be transferred to the postanesthesia care unit for recovery and mitomycin bladder dwell time. Once recovered the Wilson catheter be removed and the patient will be discharged to home. There were no complications Complications: none Post-operative Condition: stable Disposition: PACU Plan for aftercare: Patient will have the mitomycin dwell time performed unless he becomes i ntolerant and experiences bladder pain and discomfort at which time the mitomycin can be drained in the Wilson catheter removed. Patient will follow up my office in approximately 10 days.
[2024-04-09] MEDS: ACETAMINOPHEN 325 MG TABLET 650 MG PO (11:23)
[2024-04-09] MEDS: PHENAZOPYRIDINE 100 MG TABLET 200 MG PO ×2 (11:23→11:26)
== END 2024-04-09 12:37 | disposition home or self-care (01) ==
PROVIDERS: Family Provider Family Medicine; PCP Family Medicine; Referring Provider Urology; Visit Provider Urology
PROC: 0TBB8ZZ Excision of Bladder, Via Natural or Artificial Opening Endoscopic (ICD-10-PCS; CPT 52234; principal; 2024-04-09 10:45)
DX: C67.9 Malignant neoplasm of bladder, unspecified (principal)
CPT/HCPCS: 52234; 82962; J0330; J0690; J2405; J2704; J3010; J9280

== ENCOUNTER → 2024-05-22 10:59 | Outpatient (CLI) | payer MEDICARE, OTHER, SELFPAY | PROVIDERS: Family Provider Family Medicine; PCP Family Medicine; Visit Provider Urology | DX: N40.0 Benign prostatic hyperplasia without lower urinary tract symptoms (principal); R39.9 Unspecified symptoms and signs involving the genitourinary system | CPT/HCPCS: 87086 ==

== ENCOUNTER 2024-05-28 10:20 | Day surgery (SDC) | payer MEDICARE, OTHER, SELFPAY ==
[2024-05-23 09:05] VITALS: BMI 25.9
[2024-05-28] VITALS (8 sets, daily range): BP systolic 100–130; BP diastolic 54–75; PULSE 59–71; RESP 9–16; TEMP 36.3–36.6; O2SAT 6–99; BMI 25.8
--- NOTE | 2024-05-28 11:13 | PM.PREOP ---
Pre-operative Note COVID-19 COVID-19 status: Not tested Interval Note History & Physical reviewed/Exam performed by Physician: Yes Changes to H&P: No
[2024-05-28] MEDS: LACTATED RINGERS 1,000 ML 42 ML IV (11:18)
[2024-05-28] MEDS: ACETAMINOPHEN 325 MG TABLET 975 MG PO (11:22)
[2024-05-28] MEDS: CEFAZOLIN 2 GM/100 ML PREMIX 100 ML IV (11:51)
--- NOTE | 2024-05-28 11:59 | SUR.OPER ---
Lithotomy on padded OR bed, head on pillow, arms secured on padded arm boards at <90 degrees abduction. Legs secured in padded yellow fins stirrups.
[2024-05-28] MEDS: WATER FOR INJECTION,STERILE 20 ML, mitoMYcin 20 MG INTRAVESIC (12:24)
--- NOTE | 2024-05-28 12:34 | PM.OP.1 ---
Procedure & Clinicians Procedure: Transurethral resection/fulguration of bladder tumor (small), instillation of mitomycin Same procedure as scheduled: Yes Indications: This 84-year-old male with known bladder cancer came for surveillance cystoscopy and was found to have some small recurrences appearing very superficial on on the bladder surface of the prostate they appeared to be low-grade. There are multiple scars in the bladder but no other tumors were noted. Surgeon: Raheel Inman Click Yes if Unassisted: Yes Anesthesia Type: General Operative Notes Findings: Urethral meatus is normal urethra is normal along its length prostate shows moderate approaching severe obstructive character. On the patient's right on the lateral aspect of the prostate which is bulging into the bladder there were several small superficial tumors. There were no other tumors noted within the bladder. They were in a position that did not not allow the biopsy forceps to get to them therefore they were fulgurated and all obvious tumor was fulgurated. Therefore no samples were taken but they lesions were destroyed. An 18 Turkmen 5 cc Wilson catheter was left in place with 10 cc in the balloon and mitomycin was instilled. There were no other abnormalities were notable occurrences. Closure Type: not applicable Specimen(s): none sent Prosthetic devices, grafts, tissues, transplants, or devices: A Applied: catheter ([address] Turkmen [address] Wilson catheter 10 cc in the balloon) Estimated Blood Loss (mL): 5 Blood products transfused: none Procedure in detail: Procedure in detail: After informed consent was obtained, the patient was identified brought to the operating room and placed in a supine position on the table. Once on the table anesthesia was induced and maintained. Ensuring an adequate level of anesthesia the patient was transitioned to the lithotomy position where he was prepped and draped in a sterile fashion. After ensuring an adequate level of anesthesia, time-out, administration of antibiotics a 22 Turkmen cystoscope was passed through the urethra prostate and into the bladder where cystoscopy was performed with a 30 70 and 110 degree lens. The tumors were identified in the right lateral aspect of the prostate. They were very small and attempt was made to reach them with the biopsy forceps. However they could not be visualized and have the biopsy forceps in view. So it was elected then to put in the steerable Bugbee and each of the lesions was destroyed completely in turn with the cautery. Again cystoscopy was performed with a 70 30 and 110 degree lens and no further lesions were noted. The bladder was drained the scope was removed and the Wilson catheter passed into the bladder balloon filled with 10 cc of sterile water and placed to gravity drainage to the bladder was drained. Chemotherapy Wilson plug was put in place and the mitomycin instilled. At this point the patient was awakened taken to the postanesthesia care unit having tolerated the procedure well. He will stay there for the well time of the mitomycin at that point the catheter will be moved and the patient will be discharged to home to follow up in my office in 10-14 days there were no complications. Complications: none Post-operative Condition: stable Disposition: PACU Plan for aftercare: Discharged to home after mitomycin dwell time follow-up my office 10-14 days
== END 2024-05-28 14:18 | disposition home or self-care (01) ==
PROVIDERS: Family Provider Family Medicine; PCP Family Medicine; Referring Provider Urology; Visit Provider Urology
PROC: 0TBB8ZZ Excision of Bladder, Via Natural or Artificial Opening Endoscopic (ICD-10-PCS; CPT 52234; principal; 2024-05-28 11:45)
DX: C67.9 Malignant neoplasm of bladder, unspecified (principal)
CPT/HCPCS: 52234; 82962; J0690; J1100; J2405; J2704; J3010; J9280

== ENCOUNTER → 2024-06-13 11:03 | Outpatient (CLI) | payer MEDICARE, OTHER, SELFPAY | PROVIDERS: Family Provider Family Medicine; PCP Family Medicine; Visit Provider Urology | DX: C67.9 Malignant neoplasm of bladder, unspecified (principal); N39.0 Urinary tract infection, site not specified; N32.81 Overactive bladder; Z87.891 Personal history of nicotine dependence | CPT/HCPCS: 51798; 81002; 87086 ==

== ENCOUNTER → 2024-07-17 13:44 | Outpatient (CLI) | payer MEDICARE, OTHER, SELFPAY | PROVIDERS: Family Provider Family Medicine; PCP Family Medicine; Visit Provider Urology | DX: N39.0 Urinary tract infection, site not specified (principal); C67.5 Malignant neoplasm of bladder neck; N40.0 Benign prostatic hyperplasia without lower urinary tract symptoms; N32.81 Overactive bladder; Z85.51 Personal history of malignant neoplasm of bladder | CPT/HCPCS: 52000; 81002; 87086 ==

== ENCOUNTER → 2024-08-14 11:14 | Outpatient (CLI) | payer MEDICARE, OTHER, SELFPAY | PROVIDERS: Family Provider Family Medicine; PCP Family Medicine; Visit Provider Urology | DX: R39.9 Unspecified symptoms and signs involving the genitourinary system (principal); N39.0 Urinary tract infection, site not specified | CPT/HCPCS: 87086 ==

== ENCOUNTER 2024-08-20 06:00 | Day surgery (SDC) | payer MEDICARE, OTHER, SELFPAY ==
[2024-08-14 14:33] VITALS: BMI 26.6
[2024-08-20] VITALS (7 sets, daily range): BP systolic 105–133; BP diastolic 55–74; PULSE 63–71; RESP 10–18; TEMP 36.2–37.1; O2SAT 97–100; BMI 25.8
--- NOTE | 2024-08-20 | PATH_ITS ---
[facility] Accession Number: [id number] No. of containers..01 Tissue . 01 Material submitted: . bladder - R ANTERIOR BLADDER TUMOR . 01 Diagnosis: BLADDER, RIGHT ANTERIOR, TURBT: Papillary urothelial carcinoma, low grade, non-invasive; see case summary. . . CASE SUMMARY - URINARY BLADDER TURBT Specimen Procedure: TURBT. Tumor Tumor site: Right anterior. Histologic type: Papillary urothelial carcinoma, non-invasive. Histologic grade: Low grade. Tumor extent: Non-invasive papillary carcinoma. Lymphovascular invasion: Not identified. Muscularis propria: Not identified. MRV 08/22/2024 1522 Local . 01 Electronically signed: . Chevy Vu MD, PhD, Pathologist NPI- [id number] . 01 Gross description: . Received in formalin with two patient identifiers and right anterior bladder tumor, is a single norman soft tissue fragment 0.5 cm in greatest dimension. Submitted in cassette A1. ([id number]) /ANDRE 08/21/2024 0856 Local . 01 Pathologist provided ICD-10: C67.9, Z85.51 . 01 CPT . 841990 Specimen Comment: A courtesy copy of this report has been sent to [phone] Performed at: [address] [facility] [address], [place], [place] [id number] MD Marques West MD Phone: [phone]
[2024-08-20] MEDS: LACTATED RINGERS 1,000 ML 42 ML IV (07:02)
[2024-08-20] MEDS: ACETAMINOPHEN 325 MG TABLET 975 MG PO (07:05)
[2024-08-20] MEDS: FAMOTIDINE 20 MG/2 ML VIAL IV (07:06)
--- NOTE | 2024-08-20 07:27 | SUR.OPER ---
Lithotomy on padded OR bed, head on pillow, arms secured on padded arm boards at <90 degrees abduction. Legs secured in padded yellow fins stirrups.
--- NOTE | 2024-08-20 07:37 | PM.PREOP ---
Pre-operative Note COVID-19 COVID-19 status: Not tested Interval Note History & Physical reviewed/Exam performed by Physician: Yes Changes to H&P: No
--- NOTE | 2024-08-20 08:40 | P.OP_ITS ---
Procedure & Clinicians Procedure: TURBT small with fulguration and instillation of mitomycin. Same procedure as scheduled: Yes Indications: This 84-year-old male with a history of urothelial carcinoma presented for surveillance cystoscopy was found to have at least 2 small recurrent tumors and presents at this time for TURBT small with instillation of mitomycin and fulguration. Surgeon: Raheel Inman Click Yes if Unassisted: Yes Anesthesia Type: General Operative Notes Findings: Urethral meatus is normal urethra is normal along its length with normal mucosa sphincter as well coapted. Prostate exhibits moderate approaching severe obstructive character with some bulging into the bladder. The ureteral orifices in normal position with clear efflux. There is severe trabeculation cellules and small diverticula particularly in the dome. The tumors were noted to be anterior particularly on the right there were 2-3 and number the largest of which was resected. The others were fulgurated and destroyed. Using a 30 70 and 110 degree lens no other tumors or abnormalities consistent with tumor were noted within the bladder. There were multiple scars and areas of erythema from previous resection. On the prostate there was a small amount of eschar from a recent previous resection. There were no other abnormalities an 20 Kinyarwanda silicone catheter was put in place to facilitate instillation of the mitomycin. Closure Type: not applicable Specimen(s): other (Bladder tumor small right anterior) Prosthetic devices, grafts, tissues, transplants, or devices: [address] catheter 13 cc in the balloon Applied: catheter (As noted above) Estimated Blood Loss (mL): 5 Blood products transfused: none Procedure in detail: Procedure in detail: After informed consent was obtained, the patient was identified brought the operating room where he was placed in the supine position on the table. Once there anesthesia was induced and maintained. Ensuring an adequate level of anesthesia the patient was transitioned to little lithotomy position where he was prepped and draped in a sterile fashion. Once he was prepped and draped after time-out and ensuring an adequate level of anesthesia and administration of antibiotics 22 Kinyarwanda cystoscope was passed through the urethral prostate in the bladder where cystoscopy was performed with the 30 and 70 degree lens. The tumor largest was identified on the anterior right and biopsy forceps was used to resect the tumor. Bugbee electrode was then inserted and the base and margins were fulgurated destroying any remaining tumor and controlling bleeding. In the midline with 110 degree lens another small tumor was noted and destroyed with the Bugbee electrode. Just lateral to the left was another smaller area that was fulgurated. With this the bladder was once again drained and surveyed with the 30 then 70 than 110 degree lens and no other abnormalities indicative of tumor were noted. At this point the bladder was left full the scope was removed and the catheter passed through the prostate urethra prostate and end of the bladder without difficulty the balloon was filled with 13 cc of sterile water and placed to gravity drainage all of the irrigant was evacuated. At this point the chemo therapeutic plug was paced in the catheter and the mitomycin instilled. The patient was awakened having tolerated the procedure well to be transferred to the postanesthesia care unit for the mitomycin indwell time. Patient will have his catheter removed prior to discharge. There were no complications and again the patient tolerated the procedure well. Complications: none Post-operative Condition: stable Disposition: PACU Plan for aftercare: After the mitomycin indwell time the catheters to be removed the patient is to be discharged to home to follow-up in my office in approximately 10 days.
[2024-08-20] MEDS: WATER FOR INJECTION,STERILE 20 ML, mitoMYcin 20 MG INTRAVESIC (09:03)
== END 2024-08-20 11:05 | disposition home or self-care (01) ==
PROVIDERS: Family Provider Family Medicine; PCP Family Medicine; Referring Provider Urology; Visit Provider Urology
PROC: 0TBB8ZZ Excision of Bladder, Via Natural or Artificial Opening Endoscopic (ICD-10-PCS; CPT 52234; principal; 2024-08-20 07:45)
DX: C67.5 Malignant neoplasm of bladder neck (principal); N32.89 Other specified disorders of bladder; N32.3 Diverticulum of bladder; E11.9 Type 2 diabetes mellitus without complications; E03.9 Hypothyroidism, unspecified; Z79.4 Long term (current) use of insulin; Z87.891 Personal history of nicotine dependence
CPT/HCPCS: 52234; 51720; 36415; 82962; J1100; J2405; J2704; J3010; J3490; J9280

== ENCOUNTER → 2024-08-30 13:15 | Outpatient (CLI) | payer MEDICARE, OTHER, SELFPAY | PROVIDERS: Family Provider Family Medicine; PCP Family Medicine; Visit Provider Urology | DX: C67.9 Malignant neoplasm of bladder, unspecified (principal); N39.0 Urinary tract infection, site not specified; N32.81 Overactive bladder; Z87.891 Personal history of nicotine dependence | CPT/HCPCS: 51798; 81002; 87086 ==

== ENCOUNTER → 2024-10-10 09:20 | Outpatient (CLI) | payer MEDICARE, OTHER, SELFPAY | PROVIDERS: Family Provider Family Medicine; PCP Family Medicine; Visit Provider Urology | DX: C67.5 Malignant neoplasm of bladder neck (principal); R39.9 Unspecified symptoms and signs involving the genitourinary system | CPT/HCPCS: 51720; 81002; 87086; J9171; J9201 ==

== ENCOUNTER → 2024-10-24 09:08 | Outpatient (CLI) | payer MEDICARE, OTHER, SELFPAY | PROVIDERS: Family Provider Family Medicine; PCP Family Medicine; Visit Provider Urology | DX: N39.0 Urinary tract infection, site not specified (principal) | CPT/HCPCS: 51720; 81002; 87086; J9171; J9201 ==

== ENCOUNTER → 2024-10-31 09:35 | Outpatient (CLI) | payer MEDICARE, OTHER, SELFPAY | PROVIDERS: Family Provider Family Medicine; PCP Family Medicine; Visit Provider Urology | DX: C67.9 Malignant neoplasm of bladder, unspecified (principal); N39.0 Urinary tract infection, site not specified | CPT/HCPCS: 51720; 81002; 87086; J9171; J9201 ==

== ENCOUNTER → 2024-11-07 13:06 | Outpatient (CLI) | payer MEDICARE, OTHER, SELFPAY | PROVIDERS: Family Provider Family Medicine; PCP Family Medicine; Visit Provider Urology | DX: N39.0 Urinary tract infection, site not specified (principal) | CPT/HCPCS: 87086 ==

== ENCOUNTER → 2024-11-11 10:36 | Outpatient (CLI) | payer MEDICARE, OTHER, SELFPAY ==
[2024-11-11 11:15] LABS: Add Manual Diff / Slide Review NO; Basophils Absolute Auto 0 /uL (0-100); Basophils Percent Auto 0.4 % (0-2); Eosinophils Absolute Auto 100 /uL (0-450); Eosinophils Percent Auto 1.2 % (2-4); Hematocrit 38.7 % (41-53); Lymphocytes Absolute Auto 900 /uL (1100-4500); Lymphocytes Percent Auto 19.2 % (25-40); Mean Corpuscular HGB Conc 33.5 % (30-36); Mean Corpuscular Hemoglobin 33.2 PG (26-34); Mean Corpuscular Volume 99.3 fL (80-100); Monocytes Absolute Auto 200 /uL (0-900); Monocytes Percent Auto 4.9 % (3-14); Neutrophils Absolute Auto 3500 /uL (1500-7000); Neutrophils Percent Auto 74.3 % (50-75); Platelet Count 199 X10^3/uL (150-400); Red Cell Distribution Width 14.8 % (11.6-14.8); White Blood Cell Count 4.7 X10^3/uL (4.5-11.0)
== END ==
PROVIDERS: Family Provider Family Medicine; PCP Family Medicine; Referring Provider Urology; Visit Provider Urology
DX: C67.9 Malignant neoplasm of bladder, unspecified (principal)
CPT/HCPCS: 36415; 85025

== ENCOUNTER → 2024-11-13 09:52 | Outpatient (CLI) | payer MEDICARE, OTHER, SELFPAY ==
[2024-11-13 10:27] LABS: Add Manual Diff / Slide Review NO; Basophils Absolute Auto 0 /uL (0-100); Basophils Percent Auto 0.4 % (0-2); Eosinophils Absolute Auto 0 /uL (0-450); Eosinophils Percent Auto 0.9 % (2-4); Hematocrit 37.7 % (41-53); Hemoglobin 12.6 g/dL (13.5-17.5); Lymphocytes Absolute Auto 900 /uL (1100-4500); Lymphocytes Percent Auto 18.1 % (25-40); Mean Corpuscular HGB Conc 33.4 % (30-36); Mean Corpuscular Hemoglobin 33.3 PG (26-34); Mean Corpuscular Volume 99.8 fL (80-100); Monocytes Absolute Auto 300 /uL (0-900); Monocytes Percent Auto 6.1 % (3-14); Neutrophils Absolute Auto 3600 /uL (1500-7000); Neutrophils Percent Auto 74.5 % (50-75); Platelet Count 178 X10^3/uL (150-400); Red Blood Cell Count 3.77 X10^6/uL (4.5-5.9); Red Cell Distribution Width 14.6 % (11.6-14.8); White Blood Cell Count 4.8 X10^3/uL (4.5-11.0)
== END ==
PROVIDERS: Family Provider Family Medicine; PCP Family Medicine; Referring Provider Urology; Visit Provider Urology
DX: C67.9 Malignant neoplasm of bladder, unspecified (principal)
CPT/HCPCS: 36415; 85025

== ENCOUNTER → 2024-11-18 10:14 | Outpatient (CLI) | payer MEDICARE, OTHER, SELFPAY ==
[2024-11-18 11:43] LABS: HEMOLYSIS < 15 (0-50); Iron 73 ug/dL (49-181)
[2024-11-18 11:54] LABS: Percent Iron Saturation 25 % (20-50); Total Iron Binding Capacity 293 ug/dL (261-462); Transferrin 232 mg/dL (206-381)
[2024-11-18 12:15] LABS: TSH w/ Reflex to FT4 2.49 uIU/mL (0.47-4.68)
[2024-11-18 12:34] LABS: Vitamin B12 790 pg/mL (239-931)
== END ==
LOC: LAB 10:16
PROVIDERS: Family Provider Family Medicine; PCP Family Medicine; Referring Provider Family Medicine; Visit Provider Family Medicine
DX: E03.4 Atrophy of thyroid (acquired) (principal); D50.9 Iron deficiency anemia, unspecified
CPT/HCPCS: 36415; 82607; 83540; 83550; 84443

== ENCOUNTER → 2024-11-25 09:57 | Outpatient (CLI) | payer MEDICARE, OTHER, SELFPAY ==
[2024-11-25 10:47] LABS: Add Manual Diff / Slide Review NO; Basophils Absolute Auto 0 /uL (0-100); Basophils Percent Auto 0.3 % (0-2); Eosinophils Absolute Auto 100 /uL (0-450); Eosinophils Percent Auto 1.1 % (2-4); Hemoglobin 13.1 g/dL (13.5-17.5); Lymphocytes Absolute Auto 1000 /uL (1100-4500); Lymphocytes Percent Auto 15.2 % (25-40); Mean Corpuscular HGB Conc 33.5 % (30-36); Mean Corpuscular Hemoglobin 33.6 PG (26-34); Mean Corpuscular Volume 100.3 fL (80-100); Monocytes Absolute Auto 600 /uL (0-900); Monocytes Percent Auto 9.4 % (3-14); Neutrophils Absolute Auto 4800 /uL (1500-7000); Platelet Count 228 X10^3/uL (150-400); Red Blood Cell Count 3.89 X10^6/uL (4.5-5.9); Red Cell Distribution Width 15.9 % (11.6-14.8); White Blood Cell Count 6.5 X10^3/uL (4.5-11.0)
== END ==
PROVIDERS: Family Provider Family Medicine; PCP Family Medicine; Referring Provider Urology; Visit Provider Urology
DX: R31.0 Gross hematuria (principal)
CPT/HCPCS: 36415; 85025

== ENCOUNTER → 2024-12-09 10:48 | Outpatient (CLI) | payer MEDICARE, OTHER, SELFPAY ==
[2024-12-09 12:04] LABS: Add Manual Diff / Slide Review NO; Basophils Absolute Auto 0 /uL (0-100); Basophils Percent Auto 0.5 % (0-2); Eosinophils Absolute Auto 100 /uL (0-450); Eosinophils Percent Auto 1.4 % (2-4); Hematocrit 39.4 % (41-53); Hemoglobin 13.2 g/dL (13.5-17.5); Lymphocytes Absolute Auto 1000 /uL (1100-4500); Lymphocytes Percent Auto 12.5 % (25-40); Mean Corpuscular HGB Conc 33.6 % (30-36); Mean Corpuscular Hemoglobin 33.7 PG (26-34); Mean Corpuscular Volume 100.2 fL (80-100); Monocytes Absolute Auto 700 /uL (0-900); Monocytes Percent Auto 8.2 % (3-14); Neutrophils Absolute Auto 6300 /uL (1500-7000); Neutrophils Percent Auto 77.4 % (50-75); Platelet Count 234 X10^3/uL (150-400); Red Blood Cell Count 3.93 X10^6/uL (4.5-5.9); Red Cell Distribution Width 15.1 % (11.6-14.8); White Blood Cell Count 8.1 X10^3/uL (4.5-11.0)
== END ==
PROVIDERS: Family Provider Family Medicine; PCP Family Medicine; Referring Provider Urology; Visit Provider Urology
DX: R31.0 Gross hematuria (principal)
CPT/HCPCS: 36415; 85025

== ENCOUNTER → 2024-12-19 10:59 | Outpatient (CLI) | payer MEDICARE, OTHER, SELFPAY ==
[2024-12-19 12:21] LABS: Add Manual Diff / Slide Review NO; Basophils Absolute Auto 0 /uL (0-100); Basophils Percent Auto 0.3 % (0-2); Eosinophils Absolute Auto 100 /uL (0-450); Hematocrit 39.7 % (41-53); Hemoglobin 13.7 g/dL (13.5-17.5); Lymphocytes Absolute Auto 900 /uL (1100-4500); Lymphocytes Percent Auto 9.5 % (25-40); Mean Corpuscular HGB Conc 34.4 % (30-36); Mean Corpuscular Hemoglobin 34.1 PG (26-34); Mean Corpuscular Volume 99.1 fL (80-100); Monocytes Absolute Auto 600 /uL (0-900); Monocytes Percent Auto 6.3 % (3-14); Neutrophils Absolute Auto 7900 /uL (1500-7000); Neutrophils Percent Auto 82.9 % (50-75); Platelet Count 192 X10^3/uL (150-400); White Blood Cell Count 9.5 X10^3/uL (4.5-11.0)
== END ==
PROVIDERS: Family Provider Family Medicine; PCP Family Medicine; Referring Provider Urology; Visit Provider Urology
DX: C67.9 Malignant neoplasm of bladder, unspecified (principal)
CPT/HCPCS: 36415; 85025

== ENCOUNTER → 2024-12-27 10:07 | Outpatient (CLI) | payer MEDICARE, OTHER, SELFPAY ==
[2024-12-27 14:14] LABS: Appearance Urine UA CLEAR; Bilirubin Urine UA NEGATIVE (NEGATIVE); Color Urine UA YELLOW; Glucose Urine UA NEGATIVE (Negative); Ketones Urine UA NEGATIVE (NEGATIVE); Leukocyte Esterase Urine UA NEGATIVE (NEGATIVE); Nitrite Urine UA NEGATIVE (Negative); Occult Blood Urine UA 2+ (Negative); Protein Urine UA TRACE (Negative); Specific Gravity Urine UA >=1.030 (1.000-1.035); Urobilinogen Urine UA 0.2 E.U./dL (0.2)
[2024-12-27 14:19] LABS: Bacteria Urine Occasional (0-1); RBC Urine 5-10/HPF (0-5/HPF); Urine Volume 10mL (spun); WBC Urine 0-1/HPF (0-5/HPF)
[2024-12-27 14:20] LABS: Culture Indicated Urine Cult Not Indicated; Hyaline Casts Urine 0-1/LPF; Squamous Epithelial Cell Urine 0-1 /HPF (0-5/HPF)
== END ==
PROVIDERS: Family Provider Family Medicine; PCP Family Medicine; Referring Provider Urology; Visit Provider Urology
DX: N30.00 Acute cystitis without hematuria (principal); R31.0 Gross hematuria
CPT/HCPCS: 81001

== ENCOUNTER → 2025-01-14 13:18 | Outpatient (CLI) | payer MEDICARE, OTHER, SELFPAY ==
--- NOTE | 2025-01-14 13:19 | DI.CT.S_ITS ---
PROCEDURE: CT ABDOMEN PELVIS WO/W CON INDICATIONS: Follow-up bladder cancer TECHNIQUE: After the administration of oral contrast, 5 mm thick sections acquired from the diaphragms to the iliac crests. After the administration of intravenous contrast, 5 mm thick sections acquired from the diaphragms to the symphysis. 5 mm thick coronal and sagittal reformats were acquired. For radiation dose reduction, the following was used: automated exposure control, adjustment of mA and/or kV according to patient size. COMPARISON: [facility], CT, CT ABDOMEN PELVIS W CON, 10/07/2022, 11:50. FINDINGS: Image quality: Diagnostic. Lower Chest: No significant findings. ABDOMEN: Liver: No solid mass. Several stable small right hepatic lobe subcapsular calcifications unchanged from 10/27. Gallbladder: Previously resected Biliary ducts: No biliary dilation. Pancreas: No ductal dilation. Spleen: Size is within normal limits. Adrenal Glands: No adrenal nodules. Kidneys and Ureters: No hydronephrosis. Several bilateral punctate nonobstructive collecting system calculi. No solid mass. No complex renal cystic lesion which requires follow up. Stomach and Bowel: Normal colonic caliber, without significant wall thickening. Peritoneum: No abnormal intraperitoneal fluid. No free air. Ventral Wall: No significant ventral hernia. Abdominal Nodes: No retroperitoneal or mesenteric adenopathy by size criteria. Vessels: Aorta and inferior vena cava are normal in size. PELVIS: Pelvic Organs: Prostate enlargement is again noted. At the upper posterior central zone on the left there is a enhancing nodule that appears slightly not larger than seen on the prior CT from 2022 but the phases of contrast enhancement are different currently. The previously identified right posterolateral bladder mass is no longer seen. Bladder: No bladder wall thickening, accounting for underdistention. Pelvic Nodes: No enlarged lymph nodes. Miscellaneous: No inguinal hernias are seen. Bones: No aggressive osseous abnormality. IMPRESSION: 1. The nodular enhancing previously present right posterolateral small bladder mass is no longer visualized. No evidence of metastatic disease. 2. Chronic prostate enlargement, mild interval increase in size of a previously present right post that currently measures up to 3.2 cm in maximal dimension. No osseous lesion found. 3. Scattered punctate nonobstructive bilateral renal collecting system calculi incidentally noted. Dictated by: Jesus Gilliam M.D. on 01/16/2025 at 10:38 Approved by: Jesus Gilliam M.D. on 01/16/2025 at 10:48
[2025-01-14 13:44] LABS: Estimated Glomerular Filt Rate 57 mL/min (>60)
== END ==
LOC: CT 13:19
PROVIDERS: Family Provider Family Medicine; PCP Family Medicine; Referring Provider Urology; Visit Provider Urology
DX: C67.9 Malignant neoplasm of bladder, unspecified (principal); N20.0 Calculus of kidney; N40.0 Benign prostatic hyperplasia without lower urinary tract symptoms; Z90.49 Acquired absence of other specified parts of digestive tract
CPT/HCPCS: 36415; 74178; 82565; Q9967

== ENCOUNTER → 2025-01-22 10:35 | Outpatient (CLI) | payer MEDICARE, OTHER, SELFPAY ==
[2025-01-22 12:15] LABS: Appearance Urine UA CLEAR; Bilirubin Urine UA NEGATIVE (NEGATIVE); Color Urine UA YELLOW; Glucose Urine UA NEGATIVE (Negative); Ketones Urine UA NEGATIVE (NEGATIVE); Leukocyte Esterase Urine UA NEGATIVE (NEGATIVE); Nitrite Urine UA NEGATIVE (Negative); Occult Blood Urine UA NEGATIVE (Negative); Protein Urine UA NEGATIVE (Negative); Specific Gravity Urine UA 1.015 (1.000-1.035); Urobilinogen Urine UA 0.2 E.U./dL (0.2); pH Urine UA 6.5 (4.5-8.0)
[2025-01-22 12:31] LABS: Bacteria Urine None Seen; Culture Indicated Urine Cult Not Indicated; RBC Urine None Seen (0-5/HPF); Squamous Epithelial Cell Urine 5-10 /HPF (0-5/HPF); Urine Volume 10mL (spun); WBC Urine 0-1/HPF (0-5/HPF)
== END ==
PROVIDERS: Family Provider Family Medicine; PCP Family Medicine; Referring Provider Urology; Visit Provider Urology
DX: R31.0 Gross hematuria (principal)
CPT/HCPCS: 81001

== ENCOUNTER 2025-02-16 13:00 | Inpatient (IN) | payer MEDICARE, OTHER, SELFPAY ==
[2025-02-16] VITALS (33 sets, daily range): BP systolic 69–162; BP diastolic 31–72; PULSE 66–137; RESP 16–26; TEMP 36.6; O2SAT 94–97; BMI 22.9
--- NOTE | 2025-02-16 13:11 | DI.RAD.S_ITS ---
PROCEDURE: XR CHEST 1V INDICATIONS: Chest Pain TECHNIQUE: One view of the chest was acquired. COMPARISON: [facility], CT, CT CERVICAL SPINE WO CON, 02/16/2025, 13:25. FINDINGS: Surgical changes and devices: None. Lungs and pleura: Lungs are clear. No pleural effusions or pneumothorax. Mediastinum: Mediastinal contours appear normal. Heart size is normal. Bones and chest wall: No suspicious bony lesions. Overlying soft tissues appear unremarkable. IMPRESSION: No acute cardiopulmonary abnormality is seen. Dictated by: Albino Alegria M.D. on 02/16/2025 at 13:25 Approved by: Albino Alegria M.D. on 02/16/2025 at 13:26
--- NOTE | 2025-02-16 13:14 | EKG_ITS ---
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
--- NOTE | 2025-02-16 13:15 | EKG_ITS ---
[address] [address] Test Date: 2025-02-16 Pat Name: Raheel Hall Department: Room: 90B Gender: Male [employer] Editor: KITTY : 1940 Requested By: Order Number: [id number] Reading MD: Richy Mcconnell Measurements Intervals [place] Rate: 77 P: 64 RI: 144 QRS: 20 QRSD: 80 T: 35 QT: 370 QTc: 418 Interpretive Statements Normal sinus rhythm Electronically Signed On 02-19-2025 13:40:46 PDT by Richy Mcconnell
--- NOTE | 2025-02-16 13:19 | DI.CT.S_ITS ---
PROCEDURE: CT CERVICAL SPINE WO CON INDICATIONS: trauma TECHNIQUE: Noncontrast 3 mm thick sections acquired from the skull base to the T4 level. Sagittal and coronal reformats were then constructed. For radiation dose reduction, the following was used: automated exposure control, adjustment of mA and/or kV according to patient size. COMPARISON: [facility], CT, CT ANGIO HEAD AND NECK, 11/26/2022, 10:39. FINDINGS: Image quality: Excellent. Bones: No fractures or dislocations. Advanced degenerative changes. Visualized superior ribs are intact. A few sclerotic foci in the cervical spine are unchanged since 2022. Soft tissues: Prevertebral soft tissues are normal in thickness. No paravertebral hematomas. No apical pneumothoraces. Right posterior subcutaneous nodule is not significantly changed compared to 2022. Likely a sebaceous cysts. IMPRESSION: No acute osseous abnormality. Dictated by: Albino Alegria M.D. on 02/16/2025 at 13:32 Approved by: Albino Alegria M.D. on 02/16/2025 at 15:23
--- NOTE | 2025-02-16 13:20 | DI.CT.S_ITS ---
PROCEDURE: CT HEAD/BRAIN WO CON INDICATIONS: fall TECHNIQUE: Noncontrast 4.5 mm thick angled axial sections acquired from the foramen magnum to the vertex, with coronal and sagittal reformats. For radiation dose reduction, the following was used: automated exposure control, adjustment of mA and/or kV according to patient size. COMPARISON: [facility], MR, MR HEAD/BRAIN WO CON, 08/28/2023, 14:02. FINDINGS: Image quality: Diagnostic. CSF spaces: Basal cisterns are patent. No extra-axial fluid collections. Ventricles are normal in size and shape. Brain: No midline shift. No intracranial mass effect or hemorrhage. Tejada- white matter interface is normal. Right Virchow Kalen space is unchanged. Skull and face: Calvarium and visualized facial bones are intact, without suspicious lesions. Subcutaneous nodule right posterior neck measuring 1.1 cm, (2/1). Partially visualized. Possible contusion at the posterior occiput. Sinuses: Visualized sinuses and mastoids are clear. IMPRESSION: No acute intracranial pathology. Dictated by: Albino Alegria M.D. on 02/16/2025 at 13:27 Approved by: Albino Alegria M.D. on 02/16/2025 at 13:32
--- NOTE | 2025-02-16 13:35 | PC.NURSE ---
pt/family denies neuro sx/AMS
[2025-02-16 13:37] LABS: Add Manual Diff / Slide Review NO; Hematocrit 38.3 % (41-53); Hemoglobin 13.1 g/dL (13.5-17.5); Lymphocytes Absolute Auto 900 /uL (1100-4500); Mean Corpuscular HGB Conc 34.3 % (30-36); Mean Corpuscular Hemoglobin 33.8 PG (26-34); Mean Corpuscular Volume 98.5 fL (80-100); Platelet Count 187 X10^3/uL (150-400)
[2025-02-16 13:43] LABS: INR 0.9 (0.9-1.3); Prothrombin Time 10.5 SECONDS (9.4-12.5)
[2025-02-16 13:46] LABS: PTT Partial Thromboplastin Tim 23 SECONDS (25.1-36.5)
[2025-02-16 13:48] LABS: Alanine Aminotransferase 17 IU/L (<50); Albumin 4.3 g/dL (3.5-5.0); Albumin Globulin Ratio 1.5 (1.0-2.8); Alkaline Phosphatase 42 U/L (38-126); Blood Urea Nitrogen 34 mg/dL (9-20); Calcium 9.3 mg/dL (8.4-10.2); Carbon Dioxide 24 mmol/L (22-32); Chloride 105 mmol/L (98-107); Creatine Kinase 74 U/L (55-170); Estimated Glomerular Filt Rate > 60 mL/min (>60); Globulin 2.9 g/dL (1.7-4.1); Glucose 157 mg/dL (70-99); HEMOLYSIS < 15 (0-50); Lipase 103 U/L (23-300); Magnesium 1.9 mg/dL (1.6-2.3); Potassium 3.7 mmol/L (3.4-5.1); Sodium 136 mmol/L (137-145); Total Protein 7.2 g/dL (6.3-8.2)
[2025-02-16 13:59] LABS: NT-proBNP (BNP-Adult 18+) 310 pg/mL (<450); Troponin I < 0.012 ng/mL (0.01-0.034)
[2025-02-16 14:24] LABS: Thyroid Stimulating Hormone 0.911 uIU/mL (0.47-4.68)
[2025-02-16 15:24] LABS: Base Excess VBG 0.8 mmol/L (0-4); HCO3 VBG 26 mmol/L (24-28); Oxygen Saturation VBG 77 % (70-75); PCO2 VBG 40.3 mmHg (45-50); PO2 VBG 41 mmHg (35-45); Total CO2 VBG 24 mmol/L (24-29); pH VBG 7.41 (7.33-7.43)
[2025-02-16 16:21] LABS: Troponin I < 0.012 ng/mL (0.01-0.034)
--- NOTE | 2025-02-16 16:24 | ED.SYNCOPE ---
HPI - Syncope General Chief Complaint: Syncope Stated Complaint: Syncopal episode Time Seen by Provider: 02/16/25 13:04 Source: EMS Mode of arrival: EMS History of Present Illness HPI narrative: Pleasant 84-year-old man comes to the ER after a syncopal episode where he fell and hit his head. He denies any head headache, neck pain, back pain. He denies pain anywhere else on his body. He denies any prodrome. Denies any recent chest pain, palpitations, shortness of breath. He has no nausea vomiting or headache. No changes in vision hearing speech or swallowing. No new onset of numbness tingling or weakness of any part of his body. He has a rheumatoid arthritis patient. His syncope has been being worked up as an outpatient by his PCP with a Holter monitor but he has not had echo and not been evaluated in the hospital for the previous episodes Related Data Home Medications ?Medication ?Instructions ?Recorded ?Confirmed levothyroxine 125 mcg tablet 125 mcg PO QAM ##0 08/17/17 01/01/25 (Synthroid) sitagliptin phosphate 100 mg 100 mg PO QDAY ##0 08/17/17 01/01/25 tablet (Januvia) trazodone 50 mg tablet 50 mg PO BEDTIME PRN sleep 11/02/22 01/01/25 insulin glargine 100 unit/mL 20 unit SUBCUT BID #0 mL 11/16/22 01/01/25 subcutaneous solution (Lantus U-100 Insulin) multivitamin with minerals 1 cap PO DAILY 11/16/22 01/01/25 ascorbic acid (vitamin C) 1,000 mg 1,000 mg PO BID 11/21/22 01/01/25 tablet (Vitamin C) aspirin 81 mg tablet 81 mg PO DAILY 11/21/22 01/01/25 cholecalciferol (vitamin D3) 50 50 mcg PO DAILY 11/21/22 01/01/25 mcg (2,000 unit) capsule (Vitamin D3) saw palmetto 500 mg capsule 500 mg PO BID 11/21/22 01/01/25 galantamine 8 mg 24 hr 8 mg PO QAM 06/13/24 01/01/25 capsule,extended release calcium carbonate 600 mg PO DAILY 10/04/24 01/01/25 gabapentin 300 mg capsule 300 mg PO BEDTIME 10/04/24 01/01/25 leflunomide 20 mg tablet 20 mg PO DAILY 10/04/24 01/01/25 prednisone 5 mg tablet 5 mg PO DIRECTED 10/04/24 01/01/25 zinc sulfate 50 mg zinc (220 mg) 50 mg PO DAILY 10/04/24 01/01/25 capsule (Orazinc) Previous Rx's ?Medication ?Instructions ?Recorded tadalafil 5 mg tablet 5 mg PO DAILY #90 tabs 12/21/23 vibegron 75 mg tablet (Gemtesa) 75 mg PO DAILY #90 tabs 06/21/24 levofloxacin 500 mg tablet 500 mg PO DAILY #7 tabs 12/27/24 Allergies Allergy/AdvReac Type Severity Reaction Status Date / Time oxybutynin Allergy Intermediate Hallucinati Verified 02/16/25 13:19 ng Patient History Medical History Overactive bladder Wilson catheter in place Recurrent malignant neoplasm of bladder UTI (urinary tract infection) Urothelial carcinoma of bladder History of tobacco use Malignant tumor of bladder neck Gross hematuria Lower urinary tract symptoms BPH (benign prostatic hyperplasia) Diabetes Rheumatoid arthritis Surgical History History of transurethral resection of bladder tumor (TURBT) (05/28/24) History of transurethral resection of bladder tumor (TURBT) (11/14/23) History of transurethral resection of bladder tumor (TURBT) (07/11/23) History of transurethral resection of bladder tumor (TURBT) (05/23/23) History of transurethral resection of bladder tumor (TURBT) (02/28/23) H/O transurethral resection of bladder tumor (TURBT) (01/09/23) Hx of cystoscopy (11/22/22) Hx of vasectomy Hx of circumcision Hx of colonoscopy History of knee replacement (2012) Hx of cataract surgery Hx of shoulder surgery History of back surgery Hx of cholecystectomy (1997) Social History marital status: number of children: 2 household members: spouse Smoking Status: Smoker, status unknown Tobacco: How many years used: 20 alcohol intake: current caffeine: Yes Type(s) of exercise: none Smoking Status: Smoker, status unknown alcohol intake frequency: holidays/special occasions only Exam Initial Vital Signs Initial Vital Signs: Vital Signs Pulse Rate 81 02/16/25 13:04 Blood Pressure 101/57 L 02/16/25 13:04 Pulse Oximetry 96 02/16/25 13:04 Const General: No acute distress, No in distress and No ill appearing Nutritional Appearance: thin HENMT Head: normocephalic HENMT Other: small occipital lac that was cleansed, not rquiring repair with adjacent hematoma Eyes General: Yes appearance normal, both eyes and all related structures Pupils: PERRL EOM: EOM intact bilaterally Neck Neck: full ROM and No tender Chest Chest: normal inspection of the chest Resp Effort & Inspection: normal respiratory effort Auscultation: clear to auscultation bilaterally Cardio Rate: regular rate Rhythm: regular rhythm Heart Sounds: S1 normal and S2 normal GI Inspection: normal to inspection Palpation: soft and No tender Auscultation: normal bowel sounds General: No CVA tenderness Back/Spine/Pelvis Back: normal to inspection, No back tenderness, No CVA tenderness, No ecchymosis and No erythema Cervical Spine: No cervical spasm Thoracic/Lumbar Spine: No thoracic and lumbar spine normal to inspection Neuro General: patient alert, patient awake and patient oriented x3 Cranial Nerves: CN's II-XI intact bilaterally Cognition: normal cognition Speech: speech normal Motor: tremor (chronic) Sensory Exam: no sensory deficits noted Course Course Course Narrative: Patient seen and examined by myself upon arrival. Head and neck acute injuries were ruled out with CT. The remainder of his workup was essentially unremarkable. Since he is having such frequent syncope and likely not appropriate for outpatient workup anymore. I discussed the case with Dr. LAY the press breaker at [facility] He advised that the patient could be admitted at [facility] to have his echocardiography and cardiac monitoring and if there are any positive organic findings he could be transferred to schedule it for cardiac consult at that time. Next, I discussed the case with the patient's hospitalist Dr. Weiss who accepted him for admission. Orders Ordered: ED Orders 02/16/25 13:11 XR chest 1V Stat EKG-12 Lead Stat 02/16/25 13:19 CT cervical spine wo con Stat 02/16/25 13:20 CT head/brain wo con Stat 02/16/25 13:30 Complete Blood Count AUTO DIFF Stat Comprehensive Metabolic Panel Stat Lipase Stat Magnesium Stat NT-proBNP (BNP-Adult 18+) Stat PTT Partial Thromboplastin Nicolás Stat Prothrombin Time INR Stat TSH [Thyroid Stimulating Hormone] Stat Troponin & CK Cardiac Panel Stat 02/16/25 15:20 Venous Blood Gas Routine 02/16/25 15:50 Trop I [Troponin I] Stat Discontinued Medications Aspirin (Aspirin 81 Mg Chew Tab) 324 mg PO NOW ONE Stop: 02/16/25 13:11 Last Admin: 02/16/25 13:43 Dose: Not Given Documented By: MARINO Vital Signs Vital signs: Vital Signs - 8 hr 02/16/25 13:04 02/16/25 13:04 02/16/25 13:06 Temperature 98 F Pulse Rate 81 98 H Pulse Rate [Orthostatic Lying] Pulse Rate [Orthostatic Sitting] Pulse Rate [Orthostatic Standing] Respiratory Rate 16 Blood Pressure 101/57 L 101/57 L Blood Pressure [Orthostatic Lying] Blood Pressure [Orthostatic Sitting] Blood Pressure [Orthostatic Standing] Pulse Oximetry 96 96 Oxygen Delivery Method Room Air 02/16/25 13:30 02/16/25 13:30 02/16/25 13:47 Temperature Pulse Rate Pulse Rate [Orthostatic Lying] Pulse Rate [Orthostatic Sitting] Pulse Rate [Orthostatic Standing] Respiratory Rate 22 Blood Pressure 101/57 L 113/59 L Blood Pressure [Orthostatic Lying] Blood Pressure [Orthostatic Sitting] Blood Pressure [Orthostatic Standing] Pulse Oximetry 96 Oxygen Delivery Method 02/16/25 13:47 02/16/25 14:00 02/16/25 14:00 Temperature Pulse Rate 98 H Pulse Rate [Orthostatic Lying] Pulse Rate [Orthostatic Sitting] Pulse Rate [Orthostatic Standing] Respiratory Rate 22 20 Blood Pressure 112/59 L Blood Pressure [Orthostatic Lying] Blood Pressure [Orthostatic Sitting] Blood Pressure [Orthostatic Standing] Pulse Oximetry 95 95 Oxygen Delivery Method 02/16/25 14:30 02/16/25 14:30 02/16/25 15:00 Temperature Pulse Rate 76 Pulse Rate [Orthostatic Lying] 82 Pulse Rate [Orthostatic Sitting] 80 Pulse Rate [Orthostatic Standing] 87 Respiratory Rate 20 Blood Pressure 128/60 Blood Pressure [Orthostatic Lying] 137/66 Blood Pressure [Orthostatic Sitting] 98/56 L Blood Pressure [Orthostatic Standing] 69/31 L Pulse Oximetry 94 Oxygen Delivery Method MDM - Syncope Differential Diagnosis Differential diagnosis: Likely syncope due to orthostatic hypotension, vasovagal syncope, complete atrioventricular block, subarachnoid hemorrhage, pulmonary embolism and dehydration Lab Data 02/16/25 13:30 02/16/25 13:30 Labs: Lab Results 02/16/25 02/16/25 Range/Units 13:30 15:20 WBC 7.7 (4.5-11.0) X10^3/uL RBC 3.88 L (4.5-5.9) X10^6/uL Hgb 13.1 L (13.5-17.5) g/dL Hct 38.3 L (41-53) % MCV 98.5 (80-100) fL MCH 33.8 (26-34) PG MCHC 34.3 (30-36) % RDW 13.8 (11.6-14.8) % Plt Count 187 (150-400) X10^3/uL Neut % (Auto) 79.6 H (50-75) % Lymph % (Auto) 11.7 L (25-40) % Clarke % (Auto) 7.0 (3-14) % Eos % (Auto) 1.0 L (2-4) % Baso % (Auto) 0.7 (0-2) % Neut # (Auto) 6200 (5315-7548) /uL Lymph # (Auto) 900 L (2368-3083) /uL Clarke # (Auto) 500 (0-900) /uL Eos # (Auto) 100 (0-450) /uL Baso # (Auto) 100 (0-100) /uL PT 10.5 (9.4-12.5) SECONDS INR 0.9 (0.9-1.3) APTT 23 L (25.1-36.5) SECONDS VBG pH 7.41 (7.33-7.43) VBG pCO2 40.3 L (45-50) mmHg VBG pO2 41 (35-45) mmHg VBG HCO3 26 (24-28) mmol/L VBG Total CO2 24 (24-29) mmol/L VBG O2 Saturation 77 H (70-75) % VBG Base Excess 0.8 (0-4) mmol/L Sodium 136 L (137-145) mmol/L Potassium 3.7 (3.4-5.1) mmol/L Chloride 105 (98-107) mmol/L Carbon Dioxide 24 (22-32) mmol/L BUN 34 H (9-20) mg/dL Creatinine 1.14 (0.66-1.25) mg/dL Estimated GFR > 60 (>60) mL/min BUN/Creatinine Ratio 29.8 H (6-22) Glucose 157 H (70-99) mg/dL POC Whole Bld Glucose 162 H (70-99) mg/dL Calcium 9.3 (8.4-10.2) mg/dL Magnesium 1.9 (1.6-2.3) mg/dL Total Bilirubin 1.5 H (0.2-1.3) mg/dL AST 23 (17-59) IU/L ALT 17 (<50) IU/L Alkaline Phosphatase 42 (38-126) U/L Total Creatine Kinase 74 (55-170) U/L Troponin I < 0.012 (0.01-0.034) ng/mL NT-Pro-B Natriuret Pep 310 (<450) pg/mL Total Protein 7.2 (6.3-8.2) g/dL Albumin 4.3 (3.5-5.0) g/dL Globulin 2.9 (1.7-4.1) g/dL Albumin/Globulin Ratio 1.5 (1.0-2.8) Lipase 103 (23-300) U/L TSH 0.911 (0.47-4.68) uIU/mL ECG Data Interpretation: NSR rate 77. no st or t wave abnormality Discharge Plan Departure Prescriptions: No Action Januvia 100 MG tablet 100 mg PO QDAY Qty: 0 levothyroxine [Synthroid] 125 MCG tablet 125 mcg PO QAM Qty: 0 Lantus U-100 Insulin 100 unit/mL solution 20 unit SUBCUT BID Qty: 0 tadalafil 5 mg tablet 5 mg PO DAILY Qty: 90 3RF Gemtesa 75 mg tablet 75 mg PO DAILY Qty: 90 3RF levofloxacin 500 mg tablet 500 mg PO DAILY Qty: 7 0RF trazodone 50 mg tablet 50 mg PO BEDTIME PRN (Reason: sleep) ascorbic acid (vitamin C) [Vitamin C] 1,000 mg Tablet 1,000 mg PO BID aspirin 81 mg Tablet 81 mg PO DAILY saw palmetto 500 mg Capsule 500 mg PO BID Rx Instructions: give with food (meal/snack) cholecalciferol (vitamin D3) [Vitamin D3] 50 mcg (2,000 unit) Capsule 50 mcg PO DAILY multivitamin with minerals Capsule 1 cap PO DAILY galantamine 8 mg capsule,ext rel. pellets 24 hr 8 mg PO QAM Rx Instructions: administer with breakfast gabapentin 300 mg capsule 300 mg PO BEDTIME leflunomide 20 mg tablet 20 mg PO DAILY prednisone 5 mg tablet 5 mg PO DIRECTED Rx Instructions: see taper instructions calcium carbonate 600 mg calcium (1,500 mg) tablet 600 mg PO DAILY zinc sulfate [Orazinc] 50 mg zinc (220 mg) capsule 50 mg PO DAILY Referrals: Emerson Godoy MD [Primary Care Provider, Family Practice]
--- NOTE | 2025-02-16 17:07 | DI.ECHO.S_ITS ---
[facility] +---------+ Hospital : : [id number] : : [place] : : [id number] : : Phone: [phone] Echocardiogram Report + + :Name: J LUIS LEBLANC Study Date: 02/17/2025 Height: 70 in : :Hospital ReadingLocation: Weight: 160 lb : : Gender: Male BSA: 1.9 m2 : :: 1940 Age: 84 yrs BP: 132/71 mmHg: :Reason For Study: SYNCOPE : :Ordering Physician: RUBÉN, : :ROVERTO Performed By: Christine Valle : :Referring: ROVERTO MONTANA : + + Interpretation Summary Normal left ventricle size with ejection fraction 60-65%. No significant valvular abnormality. Comparison is made with the echocardiogram of 05/27/2022, no significant change. Procedure: A two-dimensional transthoracic echocardiogram with color flow and Doppler was performed. The study quality was technically difficult. Comparison is made with the echocardiogram of 05/27/2022. EKG artifact throughout, likely in part due to tremors, undetermined rhythm and rate. Left Ventricle: The left ventricle is normal in size and wall thickness. The ejection fraction is estimated to be 60-65%. There are no obvious focal wall motion abnormalities noted but poor endocardial definition reduces the sensitivity for the detection of such. Right Ventricle: The right ventricle is not well visualized. The right ventricle grossly appears normal in size with probable normal systolic function. Atria: The left atrium grossly appears normal in size. Right atrial size is normal. There is no Doppler evidence for an interatrial shunt. Mitral Valve: The mitral valve leaflets appear to open well. There is trace mitral regurgitation. Aortic Valve: The aortic valve is trileaflet. The aortic valve opens well. The aortic valve is slightly calcified. There is no aortic valve stenosis. There is trace aortic regurgitation. Tricuspid Valve: The tricuspid valve leaflets are thin and pliable. There is trace tricuspid regurgitation. Pulmonary artery pressures cannot be estimated because of the lack of a measurable TR jet velocity but the IVC suggests a CVP of around 3 mmHg. Pulmonic Valve: The pulmonic valve is not well seen, but is grossly normal. There is mild pulmonic regurgitation. Great Vessels: The aortic root is normal size. The dimensions of the ascending aorta are normal. The IVC is of normal diameter and collapses greater than 50% with a sniff. This suggests a low right atrial pressure of 3 mm Hg. Pericardium/ Pleura There is no pericardial effusion. There is no pleural effusion. MMode/2D Measurements & Calculations LVIDd: 4.8 cm LVOT diam: 2.2 cm LVIDs: 3.6 cm Ao root diam: 3.4 cm FS: 23.7 % asc Aorta Diam: 3.5 cm IVSd: 1.0 cm Ao Arch Diam (Prox Trans): 3.2 cm LVPWd: 0.95 cm LV mcnamara. diameter/BSA (cm/m^2): 2.5 LV sys. diameter/BSA (cm/m^2): 1.9 LA A2 area: 12.2 cm2 RA long axis: 4.9 cm LA A4 area: 17.2 cm2 RA area: 15.8 cm2 LA length (vol): 5.1 cm RA vol: 43.2 ml LA vol: 35.1 ml RA : 22.8 ml/m2 LA vol index: 18.5 ml/m2 IVC diam: 1.2 cm RVD1 (basal): 3.3 cm Doppler Measurements & Calculations Ao V2 max: 113.9 cm/sec LVOT Max Darrin: 60.0 cm/sec Ao V2 mean: 78.2 cm/sec LV V1 max P.4 mmHg Ao max P.2 mmHg LV V1 VTI: 13.7 cm Ao mean P.8 mmHg TRINITY(I,D): 2.5 cm2 Ao V2 VTI: 21.4 cm TRINITY(V,D): 2.1 cm2 sev ratio: 0.64 TRINITY indexed to BSA (cm^2/m^2): 1.3 MV E max darrin: 66.7 cm/sec PA V2 max: 105.7 cm/sec MV A max darrin: 74.7 cm/sec PA V2 mean: 74.9 cm/sec MV E/A: 0.89 PA mean P.4 mmHg Med Peak E' Darrin: 9.0 cm/sec E/E' med: 7.4 Lat Peak E' Darrin: 6.5 cm/sec E/E' lat: 10.2 E/e' average: 8.8 MV dec time: 0.19 sec SV(LVOT): 54.4 ml Electronically signed by: Dilan Cruz on Reading Physician:02/17/2025 08:57 AM
[2025-02-17] VITALS (20 sets, daily range): BP systolic 84–160; BP diastolic 53–80; PULSE 63–84; RESP 14–21; TEMP 35.8–36.1; O2SAT 92–97
--- NOTE | 2025-02-17 02:09 | PC.NURSE ---
Pt states that when he stood to transfer from gurney to chair he needed help to stand and be stable, 2 person assist. Then pt moved from chair back to bed with again 2 person assist. Pt states not dizzy, but feels unsteady. In a hospital bed at this time with call alarm on.
--- NOTE | 2025-02-17 03:10 | PC.NURSE ---
This shift 02/17/250 to now pt has had multiple episodes on ECG monitor in NSR then into Sinus Tachycardia while laying in bed.
--- NOTE | 2025-02-17 03:12 | PC.NURSE ---
Pt will need to work on balance prior to moving from bed to commode or bed to walking due to the lightheadedness/dizziness.
--- NOTE | 2025-02-17 07:59 | PC.NURSE ---
assumed care of pt at 0700. Pt resting in bed. Equal chest rise and fall observed.
[2025-02-17] MEDS: ENOXAPARIN 40 MG/0.4 ML SYRINGE SUBCUT (09:53)
[2025-02-17] MEDS: GABAPENTIN 300 MG CAPSULE PO (09:53)
[2025-02-17] MEDS: CHOLECALCIFEROL (VITAMIN D3) 1,000 UNIT TABLET 2000 UNIT PO (09:53)
[2025-02-17] MEDS: LEVOTHYROXINE 125 MCG TABLET PO (09:54)
[2025-02-17] MEDS: ACETAMINOPHEN 325 MG TABLET 650 MG PO (09:55)
[2025-02-17 11:24] LABS: Add Manual Diff / Slide Review NO; Hematocrit 37.0 % (41-53); Hemoglobin 12.7 g/dL (13.5-17.5); Lymphocytes Absolute Auto 1000 /uL (1100-4500); Mean Corpuscular HGB Conc 34.3 % (30-36); Mean Corpuscular Hemoglobin 33.4 PG (26-34); Mean Corpuscular Volume 97.5 fL (80-100); Platelet Count 181 X10^3/uL (150-400)
[2025-02-17 11:38] LABS: Hemoglobin A1C% w Est Avg Glu 5.5 % (4.0-6.0)
[2025-02-17 11:44] LABS: Blood Urea Nitrogen 22 mg/dL (9-20); Calcium 9.2 mg/dL (8.4-10.2); Carbon Dioxide 29 mmol/L (22-32); Chloride 105 mmol/L (98-107); Estimated Glomerular Filt Rate > 60 mL/min (>60); Glucose 115 mg/dL (70-99); HEMOLYSIS < 15 (0-50); Potassium 4.0 mmol/L (3.4-5.1); Sodium 137 mmol/L (137-145)
[2025-02-17] MEDS: SODIUM CHLORIDE 0.9% 1,000 ML 100 ML IV ×2 (14:25→23:19)
[2025-02-17] MEDS: INSULIN LISPRO 100 UNIT/ML 3ML VIAL SUBCUT (17:45)
[2025-02-17] MEDS: MIDODRINE HCL 5 MG TABLET PO (17:50)
--- NOTE | 2025-02-17 19:13 | PM.HP.1 ---
History of Present Illness History of Present Illness Date Patient Seen: 02/17/25 Time Patient Seen: 12:45 Date of Onset of Symptoms: 02/16/25 Chief complaint: Syncopal episode Narrative: Patient is a 84-year-old male with history of syncopal episodes who presents for syncopal episode and hypotension. Patient was in his usual health and was going to get a cookie out a cookie jar and then went out found himself on the floor. Hit his head. Was bleeding and was brought in. He had been having multiple maybe once a week to twice a week episodes of syncope. Sometimes it occurs when he is up standing sometimes it occurs when he is getting up from a chair sometimes he does not know exactly when. Does not occur when he is sitting down. With no other changes. He has had no chest pain. No palpitations. No headaches no visual changes. Other than his headache now he has from hitting his head. Which actually feels pretty good. He has no other significant new change. He has never had any cardiac issues. Patient has been recently having more and more issues neurologically nothing focal but just has slowed down quite a bit. The question was whether he had Parkinson's and that did not show. Neurologist does not feel as if that is the case. Patient otherwise has a history of recurrent malignant neoplasm of the bladder which has been treated symptomatically and through cystoscopy. Otherwise no major issues except as diabetes and rheumatoid arthritis [facility] Medical History (Updated 02/16/25 @ 16:30 by Joesph Murrell MD) Overactive bladder Wilson catheter in place Recurrent malignant neoplasm of bladder UTI (urinary tract infection) Urothelial carcinoma of bladder History of tobacco use Malignant tumor of bladder neck Gross hematuria Lower urinary tract symptoms BPH (benign prostatic hyperplasia) Diabetes Rheumatoid arthritis Surgical History History of transurethral resection of bladder tumor (TURBT) (05/28/24) History of transurethral resection of bladder tumor (TURBT) (11/14/23) History of transurethral resection of bladder tumor (TURBT) (07/11/23) History of transurethral resection of bladder tumor (TURBT) (05/23/23) History of transurethral resection of bladder tumor (TURBT) (02/28/23) H/O transurethral resection of bladder tumor (TURBT) (01/09/23) Hx of cystoscopy (11/22/22) Hx of vasectomy Hx of circumcision Hx of colonoscopy History of knee replacement (2012) Hx of cataract surgery Hx of shoulder surgery History of back surgery Hx of cholecystectomy (1997) Social History marital status: number of children: 2 household members: spouse Smoking Status: Former smoker Tobacco: How many years used: 20 alcohol intake: current caffeine: Yes Type(s) of exercise: none Meds Home Medications and Allergies Home Medications ?Medication ?Instructions ?Recorded ?Confirmed ?Type sitagliptin phosphate 100 mg 100 mg PO QDAY ##0 08/17/17 02/16/25 History tablet (Januvia) trazodone 50 mg tablet 50 mg PO BEDTIME PRN sleep 11/02/22 02/16/25 History insulin glargine 100 unit/mL 12 unit SUBCUT BID #0 mL 11/16/22 02/17/25 History subcutaneous solution (Lantus U-100 Insulin) multivitamin with minerals 1 cap PO DAILY 11/16/22 02/16/25 History ascorbic acid (vitamin C) 1,000 mg 1,000 mg PO BID 11/21/22 02/16/25 History tablet (Vitamin C) aspirin 81 mg tablet 81 mg PO DAILY 11/21/22 02/16/25 History cholecalciferol (vitamin D3) 50 50 mcg PO DAILY 11/21/22 02/16/25 History mcg (2,000 unit) capsule (Vitamin D3) saw palmetto 500 mg capsule 500 mg PO BID 11/21/22 02/16/25 History tadalafil 5 mg tablet 5 mg PO DAILY #90 tabs 12/21/23 02/16/25 Rx vibegron 75 mg tablet (Gemtesa) 75 mg PO DAILY #90 tabs 06/21/24 02/16/25 Rx gabapentin 300 mg capsule 300 mg PO BEDTIME 10/04/24 02/16/25 History leflunomide 20 mg tablet 20 mg PO DAILY 10/04/24 02/16/25 History prednisone 5 mg tablet 5 mg PO DIRECTED 10/04/24 02/16/25 History zinc sulfate 50 mg zinc (220 mg) 50 mg PO DAILY 10/04/24 02/16/25 History capsule (Orazinc) levofloxacin 500 mg tablet 500 mg PO DAILY #7 tabs 12/27/24 02/16/25 Rx galantamine 16 mg 24 hr 16 mg PO DAILY 02/16/25 02/16/25 History capsule,extended release levothyroxine 137 mcg tablet 137 mcg PO DAILY 02/16/25 02/16/25 History calcium carbonate (Calcium 600) 600 mg PO DAILY 02/17/25 02/17/25 History midodrine 2.5 mg tablet 2.5 mg PO 3XD 02/17/25 02/17/25 History Allergies Allergy/AdvReac Type Severity Reaction Status Date / Time oxybutynin Allergy Intermediate Hallucinati Verified 02/16/25 13:19 ng Review of Systems Review of Systems Narrative: Negative except above Exam Vital Signs (past 8 hours): - 02/17/25 15:00 02/17/25 17:00 Temperature 97.0 F L Pulse Rate 71 Pulse Rate [Orthostatic Lying] 82 Pulse Rate [Orthostatic Sitting] 84 Pulse Rate [Orthostatic Standing] 83 Respiratory Rate 18 Blood Pressure 135/63 Blood Pressure [Orthostatic Lying] 160/80 H Blood Pressure [Orthostatic Sitting] 116/75 Blood Pressure [Orthostatic Standing] 84/53 L Pulse Oximetry 95 Oxygen Flow Rate 0 Oxygen Delivery Method Room Air Oxygen Flow Rate 0 Narrative Exam Narrative: Alert elderly male slow to respond but no acute complaints. HEENT exam shows he has some abrasions on his head 1 going to left upper and 1 right posterior. No significant breaks in the skin. Pupils are equal and respond to light posterior pharynx is normal neck supple without adenopathy JVD or bruits lungs are clear heart is regular rate and rhythm without murmurs clicks rubs or gallops abdomen is soft positive bowel sounds nontender extremities without cyanosis clubbing edema. Neurologic exam is nonfocal Objective Labs 02/17/25 11:15 02/17/25 11:15 Labs: Laboratory Results - last 24 hr 02/16/25 02/17/25 02/17/25 22:28 10:45 11:15 WBC 6.0 RBC 3.79 L Hgb 12.7 L Hct 37.0 L MCV 97.5 MCH 33.4 MCHC 34.3 RDW 13.7 Plt Count 181 Neut % (Auto) 71.8 Lymph % (Auto) 17.2 L [place] % (Auto) 8.7 Eos % (Auto) 1.9 L Baso % (Auto) 0.4 Neut # (Auto) 4300 Lymph # (Auto) 1000 L [place] # (Auto) 500 Eos # (Auto) 100 Baso # (Auto) 0 Sodium 137 Potassium 4.0 Chloride 105 Carbon Dioxide 29 BUN 22 H Creatinine 0.95 Estimated GFR > 60 BUN/Creatinine Ratio 23.2 H Glucose 115 H POC Whole Bld Glucose 108 H 112 H Hemoglobin A1c 5.5 Calcium 9.2 02/17/25 15:42 WBC RBC Hgb Hct MCV MCH MCHC RDW Plt Count Neut % (Auto) Lymph % (Auto) [place] % (Auto) Eos % (Auto) Baso % (Auto) Neut # (Auto) Lymph # (Auto) [place] # (Auto) Eos # (Auto) Baso # (Auto) Sodium Potassium Chloride Carbon Dioxide BUN Creatinine Estimated GFR BUN/Creatinine Ratio Glucose POC Whole Bld Glucose 152 H Hemoglobin A1c Calcium Assessment & Plan Assessment & Plan narrative: Syncope. Etiology still continues to be somewhat unclear. He recently turned in his Zio patch which we do not have results for. Seems most likely it is blood pressure related patient has been having difficulty maintaining his blood pressure with pretty significant ortho static blood pressures. He is off of all medications. We would start midodrine last week but not a very high dose. Tele is negative echo is normal. With an EF 65% wonder about the possibility that his hypotension is autonomic dysfunction secondary to whatever the his neurologic changes are from. He has not been definitively diagnosed. I discussed with banquet houseperson. The recommendation was to increase the dose of the midodrine and possibly add 0.1 mg of Florinef if needed. We will see how he does and we will increase to 5 mg t.i.d.. He understands questions answered we will see how the next 24 hours go. We will also add fluids overnight and see if taking him up a little bit will help. Will need to be careful but he has no history of CHF Orthostatic hypotension. Etiology unclear certainly does not appear to be arrhythmia does not appear to be cardiac EF or function probably more related to autonomic dysfunction we discussed. We are going to try increasing his midodrine may add Florinef will see how things go. Rechecked in the next 24 hours. Type 2 diabetes stable continue his usual meds should be a big issue Dementia [id number]. Continue his galantamine. DVT prophylaxis on Lovenox Code status full at this time Disposition. Probably take 24-48 hours to know whether this is going to work. Hopefully we will get him a little more stabilized we will see how the fluids go. Will see how his orthostatics go over the next 24 hours and then will follow. 75 minutes spent with the patient cardiologists nursing orders dictation Time-Based Coding :: [TOTAL MINUTES] spent with patient and on the chart (including review of chart, obtaining history, exam, reviewing outside data, placing orders, documenting exam and treatment plan, and counseling patient) on [DATE]. Quality VTE Deep Vein Thrombosis/Pulmonary Embolism Present on Admission: No
--- NOTE | 2025-02-17 19:45 | PC.NURSE ---
Patient arrived from ED at approximately 0930 via bed. He is pleasant ox1-2. VSS, while lying down. He denies dizziness, SOB, CP. On telemetry he is NSR. B hand with severe tremor patient states has been going on for several months.He has a drastic drop in BP with standing and is weak on his feet. He is kept in bed most of the day except with standing to use urinal x2 assist. He is forgetful and forgets password to his phone and is more confused this evening. Bed alarm, frequent rounding, items in reach, call light in reach. supportive at bedside assisting with dinner. MD Jordan updates her at bedside this evening before she goes home.
[2025-02-17] MEDS: INSULIN GLARGINE 100 UNIT/ML 3ML PEN 10 UNIT SUBCUT (21:39)
[2025-02-18] VITALS (8 sets, daily range): BP systolic 77–164; BP diastolic 47–81; PULSE 67–97; RESP 16–18; TEMP 35.9–36.6; O2SAT 93–98
[2025-02-18] MEDS: MIDODRINE HCL 5 MG TABLET PO ×3 (06:12→17:23)
[2025-02-18] MEDS: LEVOTHYROXINE 137 MCG TABLET PO (06:13)
[2025-02-18] MEDS: ENOXAPARIN 40 MG/0.4 ML SYRINGE SUBCUT (09:00)
[2025-02-18] MEDS: CALCIUM CARBONATE 500 MG TAB PO (09:01)
[2025-02-18] MEDS: ASPIRIN EC 81 MG TABLET PO (09:01)
[2025-02-18] MEDS: CHOLECALCIFEROL (VITAMIN D3) 1,000 UNIT TABLET 2000 UNIT PO (09:01)
[2025-02-18] MEDS: INSULIN GLARGINE 100 UNIT/ML 3ML PEN 10 UNIT SUBCUT ×2 (09:02→22:35)
[2025-02-18] MEDS: SODIUM CHLORIDE 0.9% 1,000 ML 100 ML IV ×2 (12:31→22:39)
--- NOTE | 2025-02-18 14:09 | OT.IP.EVAL ---
Past Medical History (Last Reviewed 08/20/24 @ 06:55 by Gail Tripp, RN) BPH (benign prostatic hyperplasia) Diabetes Wilson catheter in place Gross hematuria History of tobacco use Lower urinary tract symptoms Malignant tumor of bladder neck Overactive bladder Recurrent malignant neoplasm of bladder Rheumatoid arthritis Urothelial carcinoma of bladder UTI (urinary tract infection) Surgical History (Last Reviewed 08/20/24 @ 06:55 by Gail Tripp, RN) H/O transurethral resection of bladder tumor (TURBT) (01/09/23) History of back surgery History of knee replacement (2012) History of transurethral resection of bladder tumor (TURBT) (02/28/23) History of transurethral resection of bladder tumor (TURBT) (05/23/23) History of transurethral resection of bladder tumor (TURBT) (07/11/23) History of transurethral resection of bladder tumor (TURBT) (11/14/23) History of transurethral resection of bladder tumor (TURBT) (05/28/24) Hx of cataract surgery Hx of cholecystectomy (1997) Hx of circumcision Hx of colonoscopy Hx of cystoscopy (11/22/22) Hx of shoulder surgery Hx of vasectomy Occupational Therapy Inpatient Evaluation/Re-Eval M1 PT/OT-IP Prior Functional Status Start: 02/18/25 13:54 Freq: NEEDED Status: Active Protocol: Document 02/18/25 13:54 [facility]3] (Rec: 02/18/25 14:09 [facility]3] Desktop) Medical Review Prior Functional Status Mobility and Gait Pt uses a hurry cane to walk with and his just recently ordered a 4ww for him to use, but that he has never used one before. Activities of Daily Pt needing assist for LB dressing needs and SBA for Living and IADL's showering. Pt's does IADL needs. Social History Household Members spouse Living Arrangements Mobile home Number of Stairs To 2 steps from the back with right rail to enter. The Enter/Railing? back door is 10ft from the garage. Home Environment Standard Height Toilet,Walk in Shower,Built-In Shower Seat Home Equipment Straight Cane,Hand Held Shower,Grab Bars In Shower Additional Social Pt has had 6 falls in the past 2 months. Pt states History Comment usually falls in the morning as he first gets up. M2 OT-IP Current Condition Start: 02/18/25 13:54 Freq: Status: Active Protocol: Document 02/18/25 13:54 [facility]3] (Rec: 02/18/25 14:09 [facility]3] Desktop) Occupational Therapy Current Condition Current Condition Evaluation Date 02/18/25 Treatment Diagnosis Syncope, hypotension, weakness Diagnosis Onset Date 02/16/25 M3 OT- IP Subjective and Pain Start: 02/18/25 13:54 Freq: Status: Active Protocol: Document 02/18/25 13:54 [facility]3] (Rec: 02/18/25 14:09 [facility]3] Desktop) OT- Subjective Occupational Therapy Visit Type Type Initial Evaluation Visit Start Time 12:37 Visit Stop Time 13:00 Occupational Therapy Visit Comments Patient Comments Pt agreed to try to get up, pt's present in the room. Patient/Caregiver Pt's open for pt to go to skilled rehab. Goals OT Pain Assessment Pain When Pain Assessed At Rest Pain Present Pain Present Pain Reported Location Neck Intensity 5 Scale Used Numeric (0 - 10) M4 OT- IP ADL's Start: 02/18/25 13:54 Freq: Status: Active Protocol: Document 02/18/25 13:54 [facility]3] (Rec: 02/18/25 14:09 [facility]3] Desktop) OT [id number] Comments OT Self-Feeding Not at meal time. Comments OT ADL-Grooming Comments OT Grooming Comments Not performed. OT ADL-Oral Care Comments Oral Care Comments Not performed. OT ADL-Dressing Comments OT Dressing Comments Pt will need extensive assist for LB dressing needs, prior his has assist with that at home. OT ADL-Toileting Comments OT Toileting Pt thinking that he needed to have a BM, however due to Comments pt very hypotensive- best to use the bed chairez per nursing. OT ADL-Bathing Comments OT Bathing Comments Sponge bath more appropriate at this time. M5 OT- IP IADL's Start: 02/18/25 13:54 Freq: Status: Active Protocol: Document 02/18/25 13:54 [facility]3] (Rec: 02/18/25 14:09 [facility]3] Desktop) OT-Instrumental Activities of Daily Living Medication Management Medication Caregiver Administers Management Money Management Money Management Caregiver Provides Assistance Meal Preparation Meal Preparation Caregiver Provides Assist Cyber Security Specialist Cyber Security Specialist Caregiver Provides Assist M6 OT- IP Functional Cognition Start: 02/18/25 13:54 Freq: Status: Active Protocol: Document 02/18/25 13:54 [facility]3] (Rec: 02/18/25 14:09 [facility]3] Desktop) Cognitive Factors Limiting Selfcare Function Cognitive Ability Level of Alertness Alert Patient Orientation Name,Place,Situation Attention Span Capable of Focused Attention,Capable of Sustained Ability Attention Ability to Follow Able to Follow One Step Commands with Increased Time, Commands Able to Follow One Step Commands with Repetition Memory Description Short Term Intact Cognitive Comments Cognitive Assessment Pt slow to initiate movements and increased time to Comments follow commands. Per pt's medical chart, pt had mild/ mod dementia. OT- Vision and Hearing OT- Vision Assessment Vision Assessment To assess more tomorrow. Comments M7 OT- IP Mobility and Balance Start: 02/18/25 13:54 Freq: Status: Active Protocol: Document 02/18/25 13:54 [facility]3] (Rec: 02/18/25 14:09 [facility]3] Desktop) OT- Bed Mobility Assessment Rolling Level of Assistance Maximum Assistance,1 Person Assistance Supine to Sit Supine to Sit Assist Maximum Assistance,1 Person Assistance OT-Transfer Assessment Sit to and From Stand Sit to and from Maximum Assistance,2 Person Assistance Stand Comments Mobility Comments Per pt uses a lot of momentum and assist for her to get to the edge of the bed at times. MAX AX 1 to get to the edge of the bed. Pt leaning backwards as well. MAX AX 2 to stand and pt having difficulty to keep his feet underneath him and having to block his feet when coming to stand. BP supine 144/76, sitting 105/53 and standing 77/46. OT- Balance Assessment Sitting Balance and Reactions Static Sitting Poor Balance Ability Dynamic Sitting Poor Balance Ability Standing Balance and Reactions Static Standing Poor Balance Ability M8 OT- IP Objective Assessments Start: 02/18/25 13:54 Freq: Status: Active Protocol: Document 02/18/25 13:54 [facility]3] (Rec: 02/18/25 14:09 [facility]3] Desktop) OT Gross Range of Motion Upper Extremity Range of Motion Assessment Bilaterally Impaired ROM Impairments Pt has bilateral shoulder RA and limited AROM in shoulders. 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 Strength Hand Dominance Right M9 OT- IP Assessment and Plan Start: 02/18/25 13:54 Freq: Status: Active Protocol: Document 02/18/25 13:54 [facility]3] (Rec: 02/18/25 14:09 [facility]3] Desktop) OT Summary Assessment and Plan Potential Rehabilitation Good Potential Analytic Complexity Moderate at Evaluation Summary OT Impairments Pain,Range of Motion,Strength,Balance,Functional Cognition,Functional Mobility,Self-Feeding,Grooming, Dressing,Toileting,Bathing,Toilet Transfers,Shower Transfers,Activity Tolerance Progress Towards Slow Progress due to Pain,Slow Progress due to Medical Goals Issues,Slow Progress due to Activity Tolerance,Slow Progress due to Cognition Assessment Summary Pt MOD complexity and main barriers are hx of frequent falls in the past 2 months,pain, having orthostatic hypotension, poor balance and leaning posteriorly while seated and standing. Pt overall weakness as well and would benefit from skilled rehab. Goals Self-Feeding Goal Standby Assistance Grooming Goal Standby Assistance Dressing Goal Standby Assistance Toileting Goal Standby Assistance Bathing Goal Minimal Assistance Toilet Transfer Goal Standby Assistance Shower Transfer Goal Standby Assistance Days to Meet Goals 30 Frequency of Treatment Other frequency 5x/week Treatment Plan OT Treatment Plan ADL Training,Functional Cognition Training,Functional Mobility,Patient/Family Education,Discharge Planning Other Treatment Transfer to BCS with MODA X 2 with FWW. Recommendations and Next Treatment Focus Discharge Recommendations OT Discharge SNF Rehab Recommendations Transportation Needs Wheelchair/Cabulance at Discharge
--- NOTE | 2025-02-18 15:35 | DIET.CONS ---
Dietary Consultation Note Admission Date: 02/18/2025 12:09 Assessment: 84 y M admitted for syncope. Dietitian screened for MNA score. Met with pt and spouse in room earlier this morning. Reports good appetite with 3 meals and 2 Ensure max but some decrease in amount consumed d/t decrease in activity within the last 6 months. Reports total of 30 lb lost in last year. Limits CHO portions at meals d/t DM, this had been going on for longer than 1yr. Does premier protein shakes BID. Visual NFPE with moderate muscle wasting in temples and mild to moderate in deltoid. Limited NFPE. Ht: 177.8 cm Wt: 72.575 kg BMI: 22.9 UBW: 77.111 kg on 10/31/24 (-5% weight loss), 79.379 kg on 10/10/24 (-8.6% weight loss in 4 months, non-severe), 82.1 kg on 05/22/24, 85.275 kg on 03/20/24 (-15% weight loss in 1 yr, non-severe) Last BM: 02/16/25 (02/16/25 23:11) MNA: 9 Yuan Score: 16 Diet: 02/17/25 Breakfast Carbohydrate Consistent Diet Diet Modifications: Carbohydrate level: Medium (3 CHO) Reflex DM orders: No Nutrition Percent Meal Consumed 80 02/17/25 18:00 Labs: RBC 3.79 X10^6/uL (4.5-5.9) L 02/17/25 11:15 Hgb 12.7 g/dL (13.5-17.5) L 02/17/25 11:15 Hct 37.0 % (41-53) L 02/17/25 11:15 Creatinine 0.95 mg/dL (0.66-1.25) 02/17/25 11:15 Hemoglobin A1c 5.5 % (4.0-6.0) 02/17/25 11:15 NT-Pro-B Natriuret Pep 310 pg/mL (<450) 02/16/25 13:30 Nutrition Diagnosis: Unintentional weight loss r/t decreased energy intake aeb 8.5% weight loss in 6 months, 30 lb in 1 yr Interventions: -A1c is 5.5% include portioned carbs at meals 45-60 g at meals, 15-30 g at snacks, spouse has been to the DM classes here -ONS max BID -Discussed nutrient-energy dense ways to increase kcal intake at meals (i.e. pb, full fat yogurts/dairy) and small freq meals and snacks EER: 2412-1793 kcals (25-30 kcals/kg per BMI) 70 g protein (1 g/kg per age) Monitoring/Evaluations: PO intakes Electronically Signed by: Meera Martin 02/18/25 15:35 Clinical Dietitian [address] [id number]
--- NOTE | 2025-02-18 15:59 | CM.DANOTE ---
B DCP Assessment note pt is a 84yo M admitted after GLF/syncopal episode. PCP Jayne Jacobson Medicare and [facility] MONEY LAUNDERING INVESTIGATOR reviewed EMR per UR RN, able to make INPT. per chart review, pt lives with spouse in mobile home in [place]. she assists with IADLs/dressing/home chores. uses cane/walker at baseline. PT pending, OT rec SNF. pper OT note, pt and family open to SNF placement. MONEY LAUNDERING INVESTIGATOR unable to meet with pt today due to triaging needs. will need SNF preferences/to send referrals/PASRR tomorrow. 3rd midnight=dc for SNF on Monday if medically stable. CM team will continue to follow closely for DCP coordination KAELA Moran Discharge Planning/Care Management CM Discharge Assessment Start: 02/16/25 23:11 Freq: Status: Active Protocol: Document 02/18/25 15:57 SL (Rec: 02/18/25 15:59 SL [id number]) Discharge Planning Assessment Assigned Discharge KAELA Virk Registered Radiologic Technologist DPOA/Assigned Tory spouse Designee Name Contact Information [phone] Advance Directives? Yes; AD Advance Directives No on File History Provided By Patient Prior Living Mobile home Arrangements Household Members spouse Independent with ADL No 's Is patient alert and Yes oriented? Needs Assistance Grooming,Managing Medications,Home Chores / Shopping With DME Already Rented / FWW / Walker,Cane Owned Patient/Family Alf Facility Preference Discharge Plan Alf Facility Referrals Initiated None needed Review Status In Process Please Provide Date 02/18/25 Initial DC Assessment Was Performed Next Review Type Continued Stay Review
--- NOTE | 2025-02-18 17:49 | PM.PN.1 ---
Subjective Subjective Date Patient Seen: 02/18/25 Time Patient Seen: 17:49 Interval history: Very pleasant 84-year-old male who is followed by Dr. Godoy and seen in [facility]. New patient to me. Patient has a history of dementia, type 2 diabetes, and was admitted for syncopal episode. It appears most likely etiology is orthostatic hypotension. Patient was started on midodrine yesterday and PT was consulted Patient denies any chest pain or shortness a breath and denies any difficulty eating or problems with bowel or bladder Patient does have a resting tremor and recently had a workup with Neurology and they claimed there was no evidence of Parkinson's syndrome Exam Vital Signs (past 8 hours): - 02/18/25 12:03 02/18/25 15:00 02/18/25 16:48 Temperature 97.3 F L 97.6 F Pulse Rate 76 67 Pulse Rate [Orthostatic Lying] 76 Pulse Rate [Orthostatic Sitting] 82 Pulse Rate [Orthostatic Standing] 87 Respiratory Rate 18 16 Blood Pressure 140/75 130/72 Blood Pressure [Orthostatic Lying] 144/76 H Blood Pressure [Orthostatic Sitting] 105/63 Blood Pressure [Orthostatic Standing] 77/47 L Pulse Oximetry 97 98 Oxygen Flow Rate 0 Oxygen Delivery Method Room Air Oxygen Flow Rate 0 Narrative Exam Narrative: Patient is still exhibiting orthostatic hypotension Patient is alert and oriented to person and place. He is resting comfortably in hospital bed. HEENT is remarkable for slightly slow speech and mask face Mucous membranes moist and pink Neck is supple without adenopathy or thyromegaly Lungs are clear to auscultation without wheezes rhonchi or crackles Cor: Regular rate and rhythm with distant S1-S2 Abdomen: Positive bowel sounds, soft, nontender Extremities no edema, pulses intact Patient with resting tremor and cogwheeling. Seems very suspicious for Parkinson's Objective Labs 02/17/25 11:15 02/17/25 11:15 Labs: Laboratory Results - last 24 hr 02/17/25 02/18/25 02/18/25 20:57 08:21 11:37 POC Whole Bld Glucose 119 H 133 H 118 H 02/18/25 16:45 POC Whole Bld Glucose 126 H [facility] Medical History (Updated 02/16/25 @ 16:30 by Joesph Murrell MD) Overactive bladder Wilson catheter in place Recurrent malignant neoplasm of bladder UTI (urinary tract infection) Urothelial carcinoma of bladder History of tobacco use Malignant tumor of bladder neck Gross hematuria Lower urinary tract symptoms BPH (benign prostatic hyperplasia) Diabetes Rheumatoid arthritis Surgical History History of transurethral resection of bladder tumor (TURBT) (05/28/24) History of transurethral resection of bladder tumor (TURBT) (11/14/23) History of transurethral resection of bladder tumor (TURBT) (07/11/23) History of transurethral resection of bladder tumor (TURBT) (05/23/23) History of transurethral resection of bladder tumor (TURBT) (02/28/23) H/O transurethral resection of bladder tumor (TURBT) (01/09/23) Hx of cystoscopy (11/22/22) Hx of vasectomy Hx of circumcision Hx of colonoscopy History of knee replacement (2012) Hx of cataract surgery Hx of shoulder surgery History of back surgery Hx of cholecystectomy (1997) Social History marital status: number of children: 2 household members: spouse Smoking Status: Former smoker Tobacco: How many years used: 20 alcohol intake: current caffeine: Yes Type(s) of exercise: none Assessment & Plan Assessment & Plan narrative: Assessment 1. Syncope. Suspect etiology is orthostatic hypotension and likely autonomic dysfunction. ZIO patch reading is pending he had this done already but no evidence of arrhythmia in the hospital. No other clear etiology. Continues still to be orthostatic. This was discussed with Cardiology and they recommended midodrine. We will give this 48 hours seeing some slight improvement today and if not continuing to improve will add Florinef 0.1 mg. Patient will likely need senior care Assessment 2. Type 2 diabetes stable Continue outpatient medications and glucose monitoring Assessment 3. Dementia [id number]. Continue his galantamine. Assessment 4. DVT prophylaxis on Lovenox Assessment 5. Tremor with workup with Neurology recently Plan: May need to revisit this. No changes at this time Code status full at this time Disposition. Patient's problem has not improved and reason for admit. Will re-evaluate in a.m.. Likely patient will need skilled care facility at discharge. 51 minute spent with patient reviewing his clinic chart and his hospital chart and ER workup and meeting with patient and discussing with nursing and formulating a plan and documentation Time-Based Coding :: [TOTAL MINUTES] spent with patient and on the chart (including review of chart, obtaining history, exam, reviewing outside data, placing orders, documenting exam and treatment plan, and counseling patient) on [DATE]. Quality VTE Deep Vein Thrombosis/Pulmonary Embolism Present on Admission: No
[2025-02-18] MEDS: TRAZODONE 50 MG TABLET PO (22:39)
[2025-02-19 05:03] LABS: Add Manual Diff / Slide Review NO; Hematocrit 37.6 % (41-53); Hemoglobin 12.7 g/dL (13.5-17.5); Lymphocytes Absolute Auto 1200 /uL (1100-4500); Mean Corpuscular HGB Conc 33.7 % (30-36); Mean Corpuscular Hemoglobin 33.1 PG (26-34); Mean Corpuscular Volume 98.1 fL (80-100); Platelet Count 175 X10^3/uL (150-400)
[2025-02-19] MEDS: MIDODRINE HCL 5 MG TABLET PO ×3 (05:13→17:23)
[2025-02-19] MEDS: LEVOTHYROXINE 137 MCG TABLET PO (05:13)
[2025-02-19 05:18] LABS: Blood Urea Nitrogen 20 mg/dL (9-20); Calcium 9.1 mg/dL (8.4-10.2); Carbon Dioxide 26 mmol/L (22-32); Chloride 108 mmol/L (98-107); Estimated Glomerular Filt Rate > 60 mL/min (>60); Glucose 107 mg/dL (70-99); HEMOLYSIS < 15 (0-50); Potassium 3.7 mmol/L (3.4-5.1); Sodium 138 mmol/L (137-145)
[2025-02-19 05:42] VITALS: BP 134/75; PULSE 72; RESP 16; O2SAT 97
[2025-02-19 08:00] VITALS: BP 147/70; PULSE 81; RESP 17; TEMP 36.2; O2SAT 95
[2025-02-19] MEDS: CHOLECALCIFEROL (VITAMIN D3) 1,000 UNIT TABLET 2000 UNIT PO (08:17)
[2025-02-19] MEDS: ASPIRIN EC 81 MG TABLET PO (08:17)
[2025-02-19] MEDS: ENOXAPARIN 40 MG/0.4 ML SYRINGE SUBCUT (08:17)
[2025-02-19] MEDS: CALCIUM CARBONATE 500 MG TAB PO (08:17)
[2025-02-19] MEDS: INSULIN LISPRO 100 UNIT/ML 3ML VIAL SUBCUT ×2 (08:18→17:24)
[2025-02-19] MEDS: INSULIN GLARGINE 100 UNIT/ML 3ML PEN 10 UNIT SUBCUT ×2 (08:18→21:13)
[2025-02-19 10:30] VITALS: BP 102/65; BP 147/70; BP 55/36; PULSE 102; PULSE 81; PULSE 97
--- NOTE | 2025-02-19 10:40 | PT.IIE ---
Current Diagnoses Syncope and collapse (02/18/25) Surgical History (Last Reviewed 08/20/24 @ 06:55 by Gail Tripp RN) H/O transurethral resection of bladder tumor (TURBT) (01/09/23) History of back surgery History of knee replacement (2012) History of transurethral resection of bladder tumor (TURBT) (02/28/23) History of transurethral resection of bladder tumor (TURBT) (05/23/23) History of transurethral resection of bladder tumor (TURBT) (07/11/23) History of transurethral resection of bladder tumor (TURBT) (11/14/23) History of transurethral resection of bladder tumor (TURBT) (05/28/24) Hx of cataract surgery Hx of cholecystectomy (1997) Hx of circumcision Hx of colonoscopy Hx of cystoscopy (11/22/22) Hx of shoulder surgery Hx of vasectomy Medical History (Last Reviewed 08/20/24 @ 06:55 by Gail Tripp RN) BPH (benign prostatic hyperplasia) Diabetes Wilson catheter in place Gross hematuria History of tobacco use Lower urinary tract symptoms Malignant tumor of bladder neck Overactive bladder Recurrent malignant neoplasm of bladder Rheumatoid arthritis Urothelial carcinoma of bladder UTI (urinary tract infection) Physical Therapy Inpatient Evaluation/Re-Eval M1 PT/OT-IP Prior Functional Status Start: 02/19/25 13:21 Freq: NEEDED Status: Active Protocol: Document 02/19/25 10:40 AB (Rec: 02/19/25 13:39 AB [id number]) Medical Review Prior Functional Status Medical History Yes Reviewed Communication able to answer some questions but inconsistently; pt with confusion Mobility and Gait spouse provided most of pt's PLOF and home set up: stated that pt was modified independent with ambulation using a hurry cane Activities of Daily Pt needing assist for LB dressing needs and SBA for Living and IADL's showering. Pt's does IADL needs. Social History Household Members spouse Living Arrangements Mobile home Number of Floors ( One Floor Floors) Number of Stairs To 2 steps R rail ascending Enter/Railing? Home Environment Standard Height Toilet,Built-In Shower Seat Home Equipment Four Wheel Walker,Raised Toilet Seat w/Armrests,Hand Held Shower,Grab Bars In Shower Additional Social pt has a hurrycane History Comment M2 PT-IP Current Condition Start: 02/19/25 13:21 Freq: NEEDED Status: Active Protocol: Document 02/19/25 10:40 AB (Rec: 02/19/25 13:39 AB [id number]) Physical Therapy Current Condition Current Condition Evaluation Date 02/19/25 Treatment Diagnosis syncope; difficulty in walking Onset Date 02/18/25 M3 PT-IP Subjective Start: 02/19/25 13:21 Freq: NEEDED Status: Active Protocol: Document 02/19/25 10:40 AB (Rec: 02/19/25 13:39 AB [id number]) Subjective Physical Therapy Visit Type Type Initial Evaluation Visit Start Time 10:40 Visit Stop Time 11:20 Number of WIRER PASSENGER CAR Visits 0 Physical Therapy Visit Comments Patient Comments agreeable to do PT M4 PT-IP Mobility and Gait Start: 02/19/25 13:21 Freq: NEEDED Status: Active Protocol: Document 02/19/25 10:40 AB (Rec: 02/19/25 13:39 AB [id number]) PT-Bed Mobility Assessment Supine to Sit Supine to Sit Moderate Assistance Sit to Supine Sit to Supine Standby Assistance PT-Transfer Assessment Sit to and From Stand Sit to and from Moderate Assistance,Maximum Assistance,1 Person Stand Assistance,Use of Upper Extremities Equipment Transfer Assistive Gait Belt,Front Wheeled Walker Device Orthotic/Prosthetic No Devices or Brace: Comments Mobility Comments pt in bed. spouse in room. pt agreed to do PT. pt with difficulty making eye contact and needs cues to re- orient. spouse stated that pt has double vision. pt also has dx dementia needing repeated cues/instructions . BP in supine: 132/72. pt completed supine to sit mod to max A and max cues. able to sit on EOB min A. BP in sittin/46. pt without c/o dizziness/ lightheadedness. pt sat on EOB while doing grooming with OT. provided SBA to cGA for sitting balance on EOB . BP recheck: 95/47. sit to stand mod to max A with increase posterior trunk lean. cues to correct. pt needing mod A for standing balance using FWW. BP checked: 68/33. instructed to pt to sit back down. BP checked in sittin/56. pt sat on EOB for ~ 2-3 more minutes and BP rechecked: 80/52. opted to lay pt back in bed due to low BP. pt completed sit to supine SBA. positioned pt in bed. BP checked: 133/73. call light and table placed within reach. 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,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 Strength Lower Extremity Strength Assessment Within Functional Limits Sensation Assessment Sensation Gross Sensation Left LE Impaired Sensation Numbness Description Comments Sensation Comments L foot chronic numbness: after back sx per spouse Muscle Tone Muscle Tone WNL Yes M6 PT-IP Treatment Start: 02/19/25 13:21 Freq: NEEDED Status: Active Protocol: Document 02/19/25 10:40 AB (Rec: 02/19/25 13:39 AB [id number]) Physical Therapy Treatment Education Education Provided Safety M7 PT-IP Assessment and Plan Start: 02/19/25 13:21 Freq: NEEDED Status: Active Protocol: Document 02/19/25 10:40 AB (Rec: 02/19/25 13:39 AB [id number]) PT Summary Assessment and Plan Potential Rehabilitation Fair Potential Status of Condition Unstable at Evaluation Summary Impairments Pain,ROM,Strength,Balance,Coordination,Sensation,Tone, Cognition,Bed Mobility,Transfers,Gait,Activity Tolerance Assessment Summary pt is an 84 y/o M who is admitted for syncope. pt with h/o fall. pt continues to have orthostatic hypotension with BP decreasing to 68/33 in standing from 132/72 in supine. Mobility and activity tolerance limited due to orthostatic hypotension. pt also has dx dementia affecting following directions and safety awareness. pt will benefit from SNF rehab to improve strength and mobility independence. Goals Bed Mobility Goal Independent Transfer Goal Contact Guard Assistance,Front Wheeled Walker Gait Goal Contact Guard Assistance,Front Wheel Walker Gait Distance 50 Other Goals improve transfers and ambulation using FWW SBA 150 ft up/down 2 steps R rail ascending SBA Days to Meet Goals 10 Frequency of Treatment Frequency Of Once a Day Treatment Treatment Plan Physical Therapy Bed Mobility Training,Transfer Training,Gait Training, Treatment Plan Therapeutic Exercise,Balance Retraining,Discharge Planning,Hot or Cold Pack,Neuromuscular Re-ed, Coordination Retraining,Manual Therapy Precautions Other Precautions falls; orthostatic hypotension Recommendations To Nursing Amount of Assist 2 Person Assist Needed Discharge Recommendations PT Discharge SNF Rehab Recommendations Equipment Needed for FWW Home Before Discharge Transportation Needs Stretcher/Ambulance at Discharge - PT assist 2
[2025-02-19 10:45] VITALS: BP 132/72; BP 68/33; BP 95/47
--- NOTE | 2025-02-19 10:45 | OT.IP.TRT ---
Current Diagnoses Syncope and collapse (02/18/25) Occupational Therapy Treatment Note M2 OT-IP Current Condition Start: 02/18/25 13:54 Freq: Status: Active Protocol: Document 02/18/25 13:54 [facility] (Rec: 02/18/25 14:09 [facility] Desktop) Occupational Therapy Current Condition Current Condition Evaluation Date 02/18/25 Treatment Diagnosis Syncope, hypotension, weakness Diagnosis Onset Date 02/16/25 M3 OT- IP Subjective and Pain Start: 02/18/25 13:54 Freq: Status: Active Protocol: Document 02/19/25 10:45 [facility] (Rec: 02/19/25 12:36 [facility] Desktop) OT- Subjective Occupational Therapy Visit Type Type Treatment Note Visit Start Time 10:45 Visit Stop Time 11:15 Occupational Therapy Visit Comments Patient Comments Pt agreed to get up. Pt more confused this AM and per does better in the PM. OT Pain Assessment Pain When Pain Assessed During Mobility Pain Present Pain Present Pain Reported Location Bilateral Shoulder Pain Behaviors Facial Grimacing M4 OT- IP ADL's Start: 02/18/25 13:54 Freq: Status: Active Protocol: Document 02/19/25 10:45 [facility] (Rec: 02/19/25 12:36 [facility] Desktop) OT [id number] Comments OT Self-Feeding Not at meal time. Comments OT ADL-Grooming Comments OT Grooming Comments Initially pt over reaching for the wash cloth and needing cue to find it. Pt's able to give pt his glasses and able to to see some better but still having difficulties. M5 OT- IP IADL's Start: 02/18/25 13:54 Freq: Status: Active Protocol: Document 02/18/25 13:54 [facility] (Rec: 02/18/25 14:09 [facility] Desktop) OT-Instrumental Activities of Daily Living Medication Management Medication Caregiver Administers Management Money Management Money Management Caregiver Provides Assistance Meal Preparation Meal Preparation Caregiver Provides Assist [place]water Rafting Guide Whitewater Rafting Guide Caregiver Provides Assist M6 OT- IP Functional Cognition Start: 02/18/25 13:54 Freq: Status: Active Protocol: Document 02/19/25 10:45 [facility] (Rec: 02/19/25 12:36 [facility] Desktop) Cognitive Factors Limiting Selfcare Function Cognitive Ability Level of Alertness Confusional State Patient Orientation Name,Place Attention Span Capable of Focused Attention,Unable to Sustain Ability Attention Ability to Follow Able to Follow One Step Commands with Increased Time, Commands Able to Follow One Step Commands with Repetition Memory Description Short Term Impaired Cognitive Comments Cognitive Assessment Pt needing more cues to initiate and follow commands Comments today. OT- Vision and Hearing OT- Vision Assessment Vision Assessment Pt overshooting when reaching to the wash cloth and Comments needing assist to put on his glasses. M7 OT- IP Mobility and Balance Start: 02/18/25 13:54 Freq: Status: Active Protocol: Document 02/19/25 10:45 [facility] (Rec: 02/19/25 12:36 [facility] Desktop) OT- Bed Mobility Assessment Supine to Sit Supine to Sit Assist Moderate Assistance,1 Person Assistance Sit to Supine Sit to Supine Assist Standby Assistance OT-Transfer Assessment Sit to and From Stand Sit to and from Moderate Assistance,Maximum Assistance,1 Person Stand Assistance Comments Mobility Comments Pt able to use momentum to get trunk towards long sitting and then needing MODA to get to the edge of the bed. MOD/MAX Ax2 to stand to FWW. PT supine 132/72, sitting 84/46 and 95/47, and standing 68/33, and sitting 88/56 and back in supine 133/73. OT- Balance Assessment Sitting Balance and Reactions Static Sitting Fair Balance Ability Dynamic Sitting Poor Balance Ability Standing Balance and Reactions Static Standing Poor Balance Ability Comments Other Balance Tests/ Pt able to sit to midline with slight posterior lean Deviations/Treatment today , much better from yesterday. Pt when standing : tends to have his weight on his heals and needing and needing assist for his balance. NOt able to transfer pt due to low BP. M8 OT- IP Objective Assessments Start: 02/18/25 13:54 Freq: Status: Active Protocol: Document 02/18/25 13:54 [facility] (Rec: 02/18/25 14:09 [facility] Desktop) OT Gross Range of Motion Upper Extremity Range of Motion Assessment Bilaterally Impaired ROM Impairments Pt has bilateral shoulder RA and limited AROM in shoulders. 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 Hand [employer] Strength Hand Dominance Right M9 OT- IP Assessment and Plan Start: 02/18/25 13:54 Freq: Status: Active Protocol: Document 02/19/25 10:45 [facility] (Rec: 02/19/25 12:36 [facility] Desktop) OT Summary Assessment and Plan Potential Rehabilitation Good Potential Analytic Complexity Moderate at Evaluation Summary OT Impairments Pain,Range of Motion,Strength,Balance,Functional Cognition,Functional Mobility,Self-Feeding,Grooming, Dressing,Toileting,Bathing,Toilet Transfers,Shower Transfers,Activity Tolerance Progress Towards Slow Progress due to Pain,Slow Progress due to Medical Goals Issues,Slow Progress due to Activity Tolerance,Slow Progress due to Cognition Assessment Summary Pt orthrostatic again but needing a little less assist for mobility needs today. Pt will benefit from skilled rehab when medically stable. Pt's hypotensive during transitions is limiting his participation in therapy at this time. Goals Self-Feeding Goal Standby Assistance Grooming Goal Standby Assistance Dressing Goal Moderate Assistance Toileting Goal Standby Assistance Bathing Goal Minimal Assistance Toilet Transfer Goal Standby Assistance Shower Transfer Goal Standby Assistance Days to Meet Goals 20 Frequency of Treatment Other frequency 5x/week Treatment Plan OT Treatment Plan ADL Training,Functional Cognition Training,Functional Mobility,Patient/Family Education,Discharge Planning Other Treatment Transfer to [facility] with MODA X 2 with FWW Recommendations and Next Treatment Focus Discharge Recommendations OT Discharge SNF Rehab Recommendations Transportation Needs Wheelchair/Cabulance at Discharge
--- NOTE | 2025-02-19 15:19 | CM.DPNOTE ---
DCP note NIGHT CLERK reviewed EMR per provider, rec SNF. NIGHT CLERK met with pt and spouse in room. Spouse primary participant in dcp conversation. confirms preference to dc to SNF, preference [facility]. NIGHT CLERK provided packing list/senior resources booklet in case family interested in additional [facility] PP services moving forward. has a local coordinator that assists with pt care as well to help spouse. NIGHT CLERK sent initial referral information to Mayuri from . kindly agreed to review, acceptance pending. PASRR needed P: anticipate dc to SNF pending [facility] acceptance/when medically stable (3rd midnight=Fri dc at earliest). CM team will continue to follow closely for DCP coordination KAELA Moran
[2025-02-19 18:00] VITALS: BP 146/80; PULSE 73; TEMP 36; O2SAT 98
--- NOTE | 2025-02-19 18:35 | P.PN_ITS ---
Subjective Subjective Date Patient Seen: 02/19/25 Time Patient Seen: 08:15 Interval history: pt had unremarkable night no complaints no cp or sob eating normal but some difficulty due to tremor still with orthostatic hypotension, severe Exam Vital Signs (past 8 hours): - 02/19/25 10:45 02/19/25 18:00 Temperature 96.8 F L Pulse Rate 73 Blood Pressure 146/80 H Blood Pressure [Orthostatic Lying] 132/72 Blood Pressure [Orthostatic Sitting] 95/47 L Blood Pressure [Orthostatic Standing] 68/33 L Pulse Oximetry 98 Oxygen Flow Rate 0 Oxygen Delivery Method Room Air Oxygen Flow Rate 0 Narrative Exam Narrative: af, vss alert and cooperative but slow to answer no change HEENt: wnl Chest : CTA bilateral Abdomen : benign ext: unchanged, unchangedtremor Objective Labs 02/19/25 04:24 02/19/25 04:24 Labs: Laboratory Results - last 24 hr 02/18/25 02/19/25 02/19/25 21:14 04:24 08:05 WBC 6.2 RBC 3.83 L Hgb 12.7 L Hct 37.6 L MCV 98.1 MCH 33.1 MCHC 33.7 RDW 13.2 Plt Count 175 Neut % (Auto) 67.7 Lymph % (Auto) 19.6 L Sac % (Auto) 9.0 Eos % (Auto) 3.3 Baso % (Auto) 0.4 Neut # (Auto) 4200 Lymph # (Auto) 1200 Sac # (Auto) 600 Eos # (Auto) 200 Baso # (Auto) 0 Sodium 138 Potassium 3.7 Chloride 108 H Carbon Dioxide 26 BUN 20 Creatinine 0.89 Estimated GFR > 60 BUN/Creatinine Ratio 22.5 H Glucose 107 H POC Whole Bld Glucose 123 H 139 H Calcium 9.1 02/19/25 02/19/25 12:13 17:17 WBC RBC Hgb Hct MCV MCH MCHC RDW Plt Count Neut % (Auto) Lymph % (Auto) Sac % (Auto) Eos % (Auto) Baso % (Auto) Neut # (Auto) Lymph # (Auto) Sac # (Auto) Eos # (Auto) Baso # (Auto) Sodium Potassium Chloride Carbon Dioxide BUN Creatinine Estimated GFR BUN/Creatinine Ratio Glucose POC Whole Bld Glucose 123 H 148 H Calcium [facility] Medical History (Updated 02/16/25 @ 16:30 by Joesph Murrell MD) Overactive bladder Wilson catheter in place Recurrent malignant neoplasm of bladder UTI (urinary tract infection) Urothelial carcinoma of bladder History of tobacco use Malignant tumor of bladder neck Gross hematuria Lower urinary tract symptoms BPH (benign prostatic hyperplasia) Diabetes Rheumatoid arthritis Surgical History History of transurethral resection of bladder tumor (TURBT) (05/28/24) History of transurethral resection of bladder tumor (TURBT) (11/14/23) History of transurethral resection of bladder tumor (TURBT) (07/11/23) History of transurethral resection of bladder tumor (TURBT) (05/23/23) History of transurethral resection of bladder tumor (TURBT) (02/28/23) H/O transurethral resection of bladder tumor (TURBT) (01/09/23) Hx of cystoscopy (11/22/22) Hx of vasectomy Hx of circumcision Hx of colonoscopy History of knee replacement (2012) Hx of cataract surgery Hx of shoulder surgery History of back surgery Hx of cholecystectomy (1997) Social History marital status: number of children: 2 household members: spouse Smoking Status: Former smoker Tobacco: How many years used: 20 alcohol intake: current caffeine: Yes Type(s) of exercise: none Assessment & Plan Assessment & Plan narrative: Assessment 1. Syncope. Suspect etiology is orthostatic hypotension and likely autonomic dysfunction. ZIO patch reading is pending he had this done already but no evidence of arrhythmia in the hospital. Echo done this hospitalization and normal and unchanged No other clear etiology. Continues still to be orthostatic. This was discussed with Cardiology and they recommended midodrine. Will add florinef 0.1 mg daily stop ivf wear compression stockings increase midodrine to 10mg po tid will need SNF placement. d/w care management and working on a bed Assessment 2. Type 2 diabetes stable Continue outpatient medications and glucose monitoring Assessment 3. Dementia [id number]. Continue his galantamine. Assessment 4. DVT prophylaxis on Lovenox Assessment 5. Tremor with workup with Neurology recently Plan: May need to revisit this. No changes at this time Code status full at this time Disposition. Patient's problem has not improved and reason for admit. Will re- evaluate in a.m.. Likely patient will need skilled care facility at discharge. 51 minute spent with patient reviewing his clinic chart and his hospital chart and ER workup and meeting with patient and discussing with nursing and formulating a plan and documentation Time-Based Coding :: [TOTAL MINUTES] spent with patient and on the chart (including review of chart, obtaining history, exam, reviewing outside data, placing orders, documenting exam and treatment plan, and counseling patient) on [DATE]. Quality VTE Deep Vein Thrombosis/Pulmonary Embolism Present on Admission: No
[2025-02-19] MEDS: ACETAMINOPHEN 325 MG TABLET 650 MG PO (21:09)
[2025-02-20] VITALS: BP 150/77; PULSE 68; RESP 17; TEMP 36.6; O2SAT 95
[2025-02-20] MEDS: LEVOTHYROXINE 137 MCG TABLET PO (05:20)
[2025-02-20] MEDS: MIDODRINE HCL 5 MG TABLET 10 MG PO ×3 (05:28→17:07)
[2025-02-20 06:35] VITALS: BP 140/88; PULSE 70; RESP 18; TEMP 36.6; O2SAT 96
[2025-02-20 08:00] VITALS: BP 126/77; PULSE 73; RESP 12; TEMP 35.9; O2SAT 97
[2025-02-20] MEDS: CALCIUM CARBONATE 500 MG TAB PO (08:48)
[2025-02-20] MEDS: CHOLECALCIFEROL (VITAMIN D3) 1,000 UNIT TABLET 2000 UNIT PO (08:48)
[2025-02-20] MEDS: GALANTAMINE 16 MG 16 EACH PO (08:48)
[2025-02-20] MEDS: ASPIRIN EC 81 MG TABLET PO (08:48)
[2025-02-20] MEDS: FLUDROCORTISONE 0.1 MG TABLET PO (08:48)
[2025-02-20] MEDS: ENOXAPARIN 40 MG/0.4 ML SYRINGE SUBCUT (08:49)
[2025-02-20] MEDS: INSULIN GLARGINE 100 UNIT/ML 3ML PEN 10 UNIT SUBCUT ×2 (09:33→20:52)
--- NOTE | 2025-02-20 10:33 | P.PN_ITS ---
Subjective Subjective Date Patient Seen: 02/20/25 Time Patient Seen: 10:33 Interval history: Patient states that he is feeling well. He has not been out of bed yesterday but per staff he seems to be more engaged and cognitively intact. He slept fine last night. No problems overnight. Patient is eating well. No chest pain or shortness for breath. Bowel movements normal and urination normal. is at bedside and has questions today. Twelve point review of systems is otherwise negative Exam Vital Signs (past 8 hours): - 02/20/25 06:35 02/20/25 08:00 Temperature 97.9 F 96.7 F L Pulse Rate 70 73 Respiratory Rate 18 12 Blood Pressure 140/88 126/77 Pulse Oximetry 96 97 Oxygen Flow Rate 0 Oxygen Delivery Method Room Air Oxygen Flow Rate 0 Narrative Exam Narrative: Afebrile vital signs are stable, resting blood pressure 126/77. No orthostatics today yet. HEENT unremarkable Neck: Supple without adenopathy Chest: Clear to auscultation without wheezes rhonchi or crackles Cor: Regular rate and rhythm with distant S1-S2 Abdomen: Positive bowel sounds, soft, nontender, nondistended Extremities no edema pulses intact Neurologic exam unchanged tremors and neurologic exam Objective Labs 02/19/25 04:24 02/19/25 04:24 Labs: Laboratory Results - last 24 hr 02/19/25 02/19/25 02/19/25 12:13 17:17 21:08 POC Whole Bld Glucose 123 H 148 H 131 H 02/20/25 07:46 POC Whole Bld Glucose 116 H [facility] Medical History (Updated 02/16/25 @ 16:30 by Joesph Murrell MD) Overactive bladder Wilson catheter in place Recurrent malignant neoplasm of bladder UTI (urinary tract infection) Urothelial carcinoma of bladder History of tobacco use Malignant tumor of bladder neck Gross hematuria Lower urinary tract symptoms BPH (benign prostatic hyperplasia) Diabetes Rheumatoid arthritis Surgical History History of transurethral resection of bladder tumor (TURBT) (05/28/24) History of transurethral resection of bladder tumor (TURBT) (11/14/23) History of transurethral resection of bladder tumor (TURBT) (07/11/23) History of transurethral resection of bladder tumor (TURBT) (05/23/23) History of transurethral resection of bladder tumor (TURBT) (02/28/23) H/O transurethral resection of bladder tumor (TURBT) (01/09/23) Hx of cystoscopy (11/22/22) Hx of vasectomy Hx of circumcision Hx of colonoscopy History of knee replacement (2012) Hx of cataract surgery Hx of shoulder surgery History of back surgery Hx of cholecystectomy (1997) Social History marital status: number of children: 2 household members: spouse Smoking Status: Former smoker Tobacco: How many years used: 20 alcohol intake: current caffeine: Yes Type(s) of exercise: none Assessment & Plan Assessment & Plan narrative: Assessment 1. Syncope. Suspect etiology is orthostatic hypotension and likely autonomic dysfunction. ZIO patch reading is pending he had this done already but no evidence of arrhythmia in the hospital. Echo done this hospitalization and normal and unchanged from previous No other clear etiology. Continues still to be orthostatic. This was discussed with Cardiology and they recommended midodrine. Florinef 0.1 mg was started yesterday. We will continue this. stop ivf wear compression stockings, these will be placed today before he gets up. increase midodrine to 10mg po tid, done yesterday but actually 1st dose was this morning so we will see how he does. will need SNF placement. Tentative plan is that he [facility]. Working with Care management. d/w care management and working on a bed Assessment 2. Type 2 diabetes stable Continue outpatient medications and glucose monitoring. Blood sugars are trending well. Assessment 3. Dementia [id number]. Continue his galantamine. Assessment 4. DVT prophylaxis on Lovenox Assessment 5. Tremor with workup with Neurology recently Plan: May need to revisit this. No changes at this time Assessment 6. Anemia, normocytic suspect anemia of chronic disease Plan: Recheck labs. Code status full at this time Disposition. Patient's problem has not improved and reason for admit. Plan for possible discharge to skilled care facility tomorrow. 50 minute spent with patient reviewing his clinic chart and his hospital chart and ER workup and meeting with patient and discussing with nursing, care management, physician's and formulating a plan and documentation Time-Based Coding :: [TOTAL MINUTES] spent with patient and on the chart (including review of chart, obtaining history, exam, reviewing outside data, placing orders, documenting exam and treatment plan, and counseling patient) on [DATE]. Quality VTE Deep Vein Thrombosis/Pulmonary Embolism Present on Admission: No
[2025-02-20 12:00] VITALS: BP 138/71; PULSE 80; RESP 16; TEMP 35.9; O2SAT 97
--- NOTE | 2025-02-20 12:54 | OT.IP.TRT ---
Current Diagnoses Syncope and collapse (02/18/25) Occupational Therapy Treatment Note M2 OT-IP Current Condition Start: 02/18/25 13:54 Freq: Status: Active Protocol: Document 02/18/25 13:54 [facility] (Rec: 02/18/25 14:09 [facility] Desktop) Occupational Therapy Current Condition Current Condition Evaluation Date 02/18/25 Treatment Diagnosis Syncope, hypotension, weakness Diagnosis Onset Date 02/16/25 M3 OT- IP Subjective and Pain Start: 02/18/25 13:54 Freq: Status: Active Protocol: Document 02/20/25 12:56 [facility] (Rec: 02/20/25 13:04 [facility] Desktop) OT- Subjective Occupational Therapy Visit Type Type Treatment Note Visit Start Time 12:40 Visit Stop Time 12:54 Occupational Therapy Visit Comments Patient Comments Pt wanting to use the BSC. OT Pain Assessment Pain When Pain Assessed During Mobility Pain Present Pain Present Pain Reported Location Bilateral Shoulder Pain Behaviors Facial Grimacing M4 OT- IP ADL's Start: 02/18/25 13:54 Freq: Status: Active Protocol: Document 02/20/25 12:56 [facility] (Rec: 02/20/25 13:04 [facility] Desktop) OT ADL-Toileting General Evaluation Toileting Ability Maximum Assistance Areas Needing Manage Clothing,Perform Perineal Hygiene Assistance M5 OT- IP IADL's Start: 02/18/25 13:54 Freq: Status: Active Protocol: Document 02/18/25 13:54 [facility] (Rec: 02/18/25 14:09 [facility] Desktop) OT-Instrumental Activities of Daily Living Medication Management Medication Caregiver Administers Management Money Management Money Management Caregiver Provides Assistance Meal Preparation Meal Preparation Caregiver Provides Assist Bale Tie Machine Operator Bale Tie Machine Operator Caregiver Provides Assist M6 OT- IP Functional Cognition Start: 02/18/25 13:54 Freq: Status: Active Protocol: Document 02/20/25 12:56 [facility] (Rec: 02/20/25 13:04 [facility] Desktop) Cognitive Factors Limiting Selfcare Function Cognitive Ability Level of Alertness Alert,Confusional State Attention Span Capable of Focused Attention,Unable to Sustain Ability Attention Ability to Follow Able to Follow One Step Commands with Increased Time, Commands Able to Follow One Step Commands with Repetition Memory Description Short Term Intact M7 OT- IP Mobility and Balance Start: 02/18/25 13:54 Freq: Status: Active Protocol: Document 02/20/25 12:56 [facility] (Rec: 02/20/25 13:04 [facility] Desktop) OT- Bed Mobility Assessment Supine to Sit Supine to Sit Assist Moderate Assistance,1 Person Assistance Sit to Supine Sit to Supine Assist Minimal Assistance OT-Transfer Assessment Sit to and From Stand Sit to and from Moderate Assistance,1 Person Assistance,2 Person Stand Assistance Transfers Transfer Ability Moderate Assistance,1 Person Assistance,2 Person Assistance Technique Transfer Destination Bed,Bedside Commode Transfer Technique Stand Step Pivot Devices Transfer Assistive Gait Belt,Front Wheeled Walker Devices Comments Mobility Comments Pt needing MODA to help get his trunk upright today from the bed. MODA X 2 to stand and transfer to the [facility] . MODA x1 to stand and transfer back to bed. BP supine 133/56, sitting 91/57, after transfer to the C 70/43 and back in bed 138/71. OT- Balance Assessment Sitting Balance and Reactions Static Sitting Fair Balance Ability Dynamic Sitting Fair Balance Ability Standing Balance and Reactions Static Standing Poor Balance Ability Dynamic Standing Poor Balance Ability Comments Other Balance Tests/ Pt needing assist for balance and to guide the FWW Deviations/Treatment during transfers. : M8 OT- IP Objective Assessments Start: 02/18/25 13:54 Freq: Status: Active Protocol: Document 02/18/25 13:54 [facility] (Rec: 02/18/25 14:09 [facility] Desktop) OT Gross Range of Motion Upper Extremity Range of Motion Assessment Bilaterally Impaired ROM Impairments Pt has bilateral shoulder RA and limited AROM in shoulders. 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 Hand Nurse Practitioner Manager Strength Hand Dominance Right M9 OT- IP Assessment and Plan Start: 02/18/25 13:54 Freq: Status: Active Protocol: Document 02/20/25 12:56 [facility] (Rec: 02/20/25 13:04 [facility] Desktop) OT Summary Assessment and Plan Potential Rehabilitation Good Potential Analytic Complexity Moderate at Evaluation Summary OT Impairments Pain,Range of Motion,Strength,Balance,Functional Cognition,Functional Mobility,Self-Feeding,Grooming, Dressing,Toileting,Bathing,Toilet Transfers,Shower Transfers,Activity Tolerance Progress Towards Slow Progress due to Pain,Slow Progress due to Medical Goals Issues,Slow Progress due to Activity Tolerance,Slow Progress due to Cognition Assessment Summary Pt still hypotensive but not symptomatic. Pt able to to transfer from bed to [facility] with MODA X1-2 with FWW. Pt to go to skilled rehab when medically stable. Goals Self-Feeding Goal Standby Assistance Grooming Goal Standby Assistance Dressing Goal Moderate Assistance Toileting Goal Standby Assistance Bathing Goal Minimal Assistance Toilet Transfer Goal Standby Assistance Shower Transfer Goal Standby Assistance Days to Meet Goals 20 Frequency of Treatment Other frequency 5x/week Treatment Plan OT Treatment Plan ADL Training,Functional Cognition Training,Functional Mobility,Patient/Family Education,Discharge Planning Other Treatment Transfer to [facility] with MODA x1 with FWW Recommendations and Next Treatment Focus Discharge Recommendations OT Discharge SNF Rehab Recommendations Transportation Needs Wheelchair/Cabulance at Discharge
--- NOTE | 2025-02-20 13:16 | PT-IP ANOTE ---
PT communicates with OT and pt con't with severe OH with systolic BP in the 70s and diastolic BP in the 40s. Will hold PT currently, pt is getting up to chair and BSC with staff and that is safest with BP dropping so much. Progressing gait not currently appropriate.
--- NOTE | 2025-02-20 14:38 | CM.DPNOTE ---
DCP Cont Mayuri at accepts for admission tomorrow 02/21. PASRR completed. Updated spouse who is pleased with this news. Requested that spouse bring in the following home meds to take over to [facility]: Januvia, Gemtesa, Leflunomide. Spouse agreeable. Plan: Discharge anticipated 02/20 to [facility] if patient is medically stable to do so, expect via [facility]c van. [facility] team following closesly for coordination. CHARLEY
[2025-02-20] MEDS: INSULIN LISPRO 100 UNIT/ML 3ML VIAL SUBCUT (17:05)
[2025-02-20 18:00] VITALS: BP 130/57; PULSE 67; RESP 14; O2SAT 100
[2025-02-20 22:00] VITALS: BP 143/63; PULSE 84; RESP 18; TEMP 35.9; O2SAT 96
[2025-02-21] MEDS: LEVOTHYROXINE 137 MCG TABLET PO (05:25)
[2025-02-21] MEDS: MIDODRINE HCL 5 MG TABLET 10 MG PO ×2 (05:25→12:40)
[2025-02-21 05:36] LABS: Add Manual Diff / Slide Review NO; Hematocrit 38.5 % (41-53); Hemoglobin 13.1 g/dL (13.5-17.5); Lymphocytes Absolute Auto 1300 /uL (1100-4500); Mean Corpuscular HGB Conc 34.1 % (30-36); Mean Corpuscular Hemoglobin 33.3 PG (26-34); Mean Corpuscular Volume 97.7 fL (80-100); Platelet Count 182 X10^3/uL (150-400)
[2025-02-21 05:46] LABS: Blood Urea Nitrogen 25 mg/dL (9-20); Calcium 9.2 mg/dL (8.4-10.2); Carbon Dioxide 24 mmol/L (22-32); Chloride 108 mmol/L (98-107); Estimated Glomerular Filt Rate > 60 mL/min (>60); Glucose 90 mg/dL (70-99); HEMOLYSIS < 15 (0-50); Potassium 3.7 mmol/L (3.4-5.1); Sodium 137 mmol/L (137-145)
[2025-02-21 06:00] VITALS: BP 134/68; PULSE 81; RESP 18; TEMP 35.8; O2SAT 98
[2025-02-21 08:00] VITALS: BP 135/72; PULSE 76; RESP 16; TEMP 35.9; O2SAT 97
--- NOTE | 2025-02-21 09:46 | PM.DS.1 ---
History of Present Illness History of Present Illness Date Patient Seen: 02/21/25 Time Patient Seen: 11:19 Chief complaint: Syncopal episode Narrative: CC syncope orthostatics This is a pleasant gentleman known to our practice who presented with complaint of acute weakness and syncope evaluation was unremarkable for any obvious cause with generally normal cardiac and laboratory workup although persistent orthostatic hypotension was noted which made a dangerous for him to stand unassisted. His vitals were stable while supine. Consultation with Cardiology suggested that supplementation with increased midodrine and Florinef would be helpful it has improved his status somewhat however he still has a ways to go before he is ready to go home our plan will be to discharge to alf facility to work on strength and follow-up as outpatient. Discharge Providers Provider Date of admission: 02/18/25 12:09 Discharge Date: 02/21/25 Primary care physician: Emerson Godoy MD Consults: 02/18/25 12:14 Consult to Occupational Therapy Evaluate & Treat Comment: Physician Instructions: Evaluate and treat Consult to Physical Therapy Evaluate & Treat Comment: Physician Instructions: Evaluate and Treat Discharge provider: Musa Godwin MD Summary Hospital Course Discharge Diagnosis: #Syncope #Type 2 diabetes stable #Dementia [id number] #Tremor #Mild anemia, normocytic Status at Discharge Cognitive/behavioral status at discharge: calm Functional status at discharge: uses cane/walker Overall status at discharge: patient is progressing back to baseline Exam Vital Signs (past 8 hours): - 02/21/25 06:00 Temperature 96.4 F L Pulse Rate 81 Respiratory Rate 18 Blood Pressure 134/68 Pulse Oximetry 98 Oxygen Flow Rate 0 Oxygen Delivery Method Room Air Oxygen Flow Rate 0 Narrative Exam Narrative: Resting comfortably in bed with at bedside Const Other: Well-nourished well-developed mildly tremulous Resp Other: Clear to auscultation bilaterally Cardio Other: Regular rate and rhythm at rest S1-S2 well-perfused GI Other: Soft nontender hyperactive bowel sounds Neuro Other: Bilateral moderate severity resting tremor of both upper extremities Extrem Other: No pedal edema Objective Labs 02/21/25 05:10 02/21/25 05:10 Labs: Laboratory Results - last 24 hr 02/20/25 02/20/25 02/20/25 11:55 16:54 20:47 WBC RBC Hgb Hct MCV MCH MCHC RDW Plt Count Neut % (Auto) Lymph % (Auto) Mcculloch % (Auto) Eos % (Auto) Baso % (Auto) Neut # (Auto) Lymph # (Auto) Mcculloch # (Auto) Eos # (Auto) Baso # (Auto) Sodium Potassium Chloride Carbon Dioxide BUN Creatinine Estimated GFR BUN/Creatinine Ratio Glucose POC Whole Bld Glucose 115 H 133 H 131 H Calcium 02/21/25 02/21/25 05:10 07:59 WBC 6.4 RBC 3.94 L Hgb 13.1 L Hct 38.5 L MCV 97.7 MCH 33.3 MCHC 34.1 RDW 13.6 Plt Count 182 Neut % (Auto) 66.2 Lymph % (Auto) 20.2 L Mcculloch % (Auto) 8.1 Eos % (Auto) 4.8 H Baso % (Auto) 0.7 Neut # (Auto) 4200 Lymph # (Auto) 1300 Mcculloch # (Auto) 500 Eos # (Auto) 300 Baso # (Auto) 0 Sodium 137 Potassium 3.7 Chloride 108 H Carbon Dioxide 24 BUN 25 H Creatinine 0.84 Estimated GFR > 60 BUN/Creatinine Ratio 29.8 H Glucose 90 POC Whole Bld Glucose 99 Calcium 9.2 PFSH Medical History (Updated 02/16/25 @ 16:30 by Joesph Murrell MD) Overactive bladder Wilson catheter in place Recurrent malignant neoplasm of bladder UTI (urinary tract infection) Urothelial carcinoma of bladder History of tobacco use Malignant tumor of bladder neck Gross hematuria Lower urinary tract symptoms BPH (benign prostatic hyperplasia) Diabetes Rheumatoid arthritis Surgical History History of transurethral resection of bladder tumor (TURBT) (05/28/24) History of transurethral resection of bladder tumor (TURBT) (11/14/23) History of transurethral resection of bladder tumor (TURBT) (07/11/23) History of transurethral resection of bladder tumor (TURBT) (05/23/23) History of transurethral resection of bladder tumor (TURBT) (02/28/23) H/O transurethral resection of bladder tumor (TURBT) (01/09/23) Hx of cystoscopy (11/22/22) Hx of vasectomy Hx of circumcision Hx of colonoscopy History of knee replacement (2012) Hx of cataract surgery Hx of shoulder surgery History of back surgery Hx of cholecystectomy (1997) Social History marital status: number of children: 2 household members: spouse Smoking Status: Former smoker Tobacco: How many years used: 20 alcohol intake: current caffeine: Yes Type(s) of exercise: none Discharge Assessment & Plan Assessment and Plan Assessment: #Syncope Likely mix of orthostatic hypotension and autonomic dysfunction. ZIO patch reading is pending he had this done already but no evidence of arrhythmia in the hospital. Echo done this hospitalization and normal and unchanged from previous. This was discussed with Cardiology and they recommended midodrine. Florinef 0.1 mg was also added he is feeling a bit better. Continue compression stockings and increased midodrine at 10mg po tid Still wobbly and low BP on standing will go to SNF today #Type 2 diabetes stable Continue outpatient medications and glucose monitoring. Blood sugars are trending well. #Dementia [id number] Stable continue his galantamine. #Tremor bilateral resting, s/p workup with Neurology recently f/up as outpt. #Mild anemia, normocytic Suspect anemia of chronic disease, monitor nourish and f/up as outpt. Code status: full DVT: continue lovenox Dispo: Patient's problem has not improved back to safe discharge - going to SNF to build back strength. Diet: Carb controlled PCP: [facility] MDM: Discharge Plan Discharge Plan Patient Disposition: SNF Discharge orders & Medications Prescriptions: New acetaminophen 325 mg Tablet 650 mg PO Q6H PRN (Reason: Fever/Mild Pain (1-3)) Qty: 30 0RF midodrine 5 mg Tablet 10 mg PO 0600,1200,1800 Qty: 30 0RF levothyroxine [Synthroid] 125 mcg Tablet 125 mcg PO 0600 Qty: 30 0RF calcium carbonate 200 mg calcium (500 mg) Tablet,Chewable 500 mg PO DAILY Qty: 30 0RF insulin lispro [Admelog U-100 Insulin lispro] 100 unit/mL Solution 0 unit SUBCUT ACHS Qty: 30 0RF fludrocortisone 0.1 mg Tablet 0.1 mg PO DAILY Qty: 30 0RF enoxaparin [Lovenox] 40 mg/0.4 mL Syringe 40 mg SUBCUT DAILY Qty: 30 0RF Continued Januvia 100 MG tablet 100 mg PO QDAY Qty: 0 insulin glargine [Lantus U-100 Insulin] 100 unit/mL solution 12 unit SUBCUT BID Qty: 0 tadalafil 5 mg tablet 5 mg PO DAILY Qty: 90 3RF Gemtesa 75 mg tablet 75 mg PO DAILY Qty: 90 3RF levofloxacin 500 mg tablet 500 mg PO DAILY Qty: 7 0RF trazodone 50 mg tablet 50 mg PO BEDTIME PRN (Reason: sleep) ascorbic acid (vitamin C) [Vitamin C] 1,000 mg Tablet 1,000 mg PO BID aspirin 81 mg Tablet 81 mg PO DAILY saw palmetto 500 mg Capsule 500 mg PO BID Rx Instructions: give with food (meal/snack) cholecalciferol (vitamin D3) [Vitamin D3] 50 mcg (2,000 unit) Capsule 50 mcg PO DAILY galantamine 16 mg capsule,ext rel. pellets 24 hr 16 mg PO DAILY calcium carbonate [Calcium 600] 600 mg calcium (1,500 mg) tablet 600 mg PO DAILY multivitamin with minerals Capsule 1 cap PO DAILY gabapentin 300 mg capsule 300 mg PO BEDTIME leflunomide 20 mg tablet 20 mg PO DAILY prednisone 5 mg tablet 5 mg PO DIRECTED Rx Instructions: see taper instructions zinc sulfate [Orazinc] 50 mg zinc (220 mg) capsule 50 mg PO DAILY Discontinued levothyroxine 137 mcg tablet 137 mcg PO DAILY midodrine 2.5 mg tablet 2.5 mg PO 3XD Follow up/Referrals: Emerson Godoy MD [Primary Care Provider, [facility]] Visit Report/Discharge Packet Stand Alone Forms: Patient Portal/API Discharge Data Primary Care Provider: Emerson Godoy Quality VTE Deep Vein Thrombosis/Pulmonary Embolism Present on Admission: No
[2025-02-21] MEDS: ACETAMINOPHEN 325 MG TABLET 650 MG PO (09:57)
[2025-02-21] MEDS: ENOXAPARIN 40 MG/0.4 ML SYRINGE SUBCUT (09:57)
[2025-02-21] MEDS: CHOLECALCIFEROL (VITAMIN D3) 1,000 UNIT TABLET 2000 UNIT PO (09:57)
[2025-02-21] MEDS: ASPIRIN EC 81 MG TABLET PO (09:58)
[2025-02-21] MEDS: INSULIN GLARGINE 100 UNIT/ML 3ML PEN 10 UNIT SUBCUT (09:58)
[2025-02-21] MEDS: GALANTAMINE 16 MG 16 EACH PO (10:08)
[2025-02-21] MEDS: FLUDROCORTISONE 0.1 MG TABLET PO (12:40)
[2025-02-21] MEDS: CALCIUM CARBONATE 500 MG TAB PO (12:40)
--- NOTE | 2025-02-21 14:30 | CM.DPNOTE ---
DC Note Patient discharged to [facility] today; [employer] van arranged for pickle water pump operator at 1:30P. Patient and sp remain agreeable to plan. IMM provided. Emailed DC Summary, signed med list and hospital exempt PASRR to Mayuri talley . Updated bedside RN who plans to call report. Sent the hospital exempt PASRR to RAZ HernandezRR nurse consultant via [employer]. Plan: Discharge to [facility] via [facility] van. JW
--- NOTE | 2025-02-21 16:52 | PC.NURSE ---
Transfer: Report given to Julee admitting nurse at facility, reviewed hospital course, Discussed skin, pt's diff with mobility due to tremors and weakness. Questions answered. Pt d/c to facility via their van.
== END 2025-02-21 13:55 | DRG 312 ==
LOC: ED 16:30 → AC 16:43
PROVIDERS: Family Medicine; Admitting Provider Family Medicine; Emergency Provider Emergency Medicine; Family Provider Family Medicine; PCP Family Medicine; Referring Provider Emergency Medicine; Visit Provider Family Medicine
DX: I95.1 Orthostatic hypotension (principal); E11.9 Type 2 diabetes mellitus without complications; F03.B0 Unspecified dementia, moderate, without behavioral disturbance, psychotic disturbance, mood disturbance, and anxiety; R25.1 Tremor, unspecified; F45.8 Other somatoform disorders; E03.9 Hypothyroidism, unspecified; D64.9 Anemia, unspecified; N40.0 Benign prostatic hyperplasia without lower urinary tract symptoms; M06.9 Rheumatoid arthritis, unspecified; N32.81 Overactive bladder; S00.81XA Abrasion of other part of head, initial encounter; W18.30XA Fall on same level, unspecified, initial encounter; Z87.891 Personal history of nicotine dependence; Z79.890 Hormone replacement therapy; Z85.51 Personal history of malignant neoplasm of bladder; Z79.84 Long term (current) use of oral hypoglycemic drugs; Z79.4 Long term (current) use of insulin; Z79.52 Long term (current) use of systemic steroids
CPT/HCPCS: 36415; 70450; 71045; 72125; 80048; 80053; 81003; 82550; 82805; 82962; 83036; 83690; 83735; 83880; 84443; 84484; 85025; 85610; 85730; 93005; 93306; 97163; 97166; 97530; 99284; G0378; J1650; J1815

== ENCOUNTER → 2025-05-22 14:10 | Outpatient (CLI) | payer MEDICARE, OTHER, SELFPAY ==
[2025-02-16 23:11] VITALS: BMI 22.9
== END ==
PROVIDERS: Family Provider Family Medicine; PCP Family Medicine; Referring Provider Urology; Visit Provider Urology
DX: N30.00 Acute cystitis without hematuria (principal)
CPT/HCPCS: 87086

== ENCOUNTER 2025-05-27 10:02 | Day surgery (SDC) | payer MEDICARE, OTHER, SELFPAY ==
[2025-02-16 23:11] VITALS: BMI 22.9
[2025-05-15 14:03] VITALS: BMI 30.1
[2025-05-15 14:32] VITALS: BMI 30.1
--- NOTE | 2025-05-27 | PATH_ITS ---
[facility] Accession Number: [id number] No. of containers..01 Tissue . 01 Material submitted: . bladder - BLADDER TUMOR . 01 Diagnosis: A. URINARY BLADDER, TRANSURETHRAL RESECTION OF BLADDER TUMOR: - Noninvasive papillary urothelial carcinoma, low grade. - Muscularis propria is NOT present. [facility] 06/09/2025 1213 Local . 01 Comment: As part of ongoing senior supplier quality engineer, this case was reviewed by Dr. Joseph Cobb who agrees with the interpretation. . 01 Electronically signed: . Tamy Lane MD, Pathologist NPI- [id number] . 01 Gross description: . Received in formalin, labeled with two patient identifiers and bladder tumor, is a single norman soft tissue fragment measuring 0.4 cm in greatest dimension. Entirely submitted in cassette A1. ([id number]) /R 06/03/2025 1453 Local . 01 Pathologist provided ICD-10: N32.9 . 01 CPT . 116493 Specimen Comment: A courtesy copy of this report has been sent to [facility] Pathology Performed at: [address] [address], [place], [place] [id number] MD Marques West MD Phone: [phone]
[2025-05-27 10:50] VITALS: BP 167/85; PULSE 78; RESP 16; TEMP 36.6; O2SAT 97
[2025-05-27] MEDS: LACTATED RINGERS 1,000 ML 42 ML IV (10:59)
[2025-05-27] MEDS: ACETAMINOPHEN 325 MG TABLET 975 MG PO (11:02)
--- NOTE | 2025-05-27 11:22 | PM.PREOP ---
Pre-operative Note COVID-19 COVID-19 status: Not tested Interval Note History & Physical reviewed/Exam performed by Physician: Yes Changes to H&P: No
--- NOTE | 2025-05-27 12:12 | SUR.OPER ---
Lithotomy on padded OR bed, head on pillow, arms secured on padded arm boards at <90 degrees abduction. Legs secured in padded yellow fins stirrups. Final positioning done by provider
[2025-05-27 12:34] VITALS: BP 158/75; PULSE 69; RESP 16; TEMP 36.9; O2SAT 98
[2025-05-27 12:41] VITALS: BP 151/74; PULSE 67; RESP 15; TEMP 36.8; O2SAT 96
[2025-05-27 12:46] VITALS: BP 152/77; PULSE 68; RESP 14; TEMP 36.8; O2SAT 96
[2025-05-27 12:55] VITALS: BP 149/76; PULSE 73; RESP 14; TEMP 36.7; O2SAT 95
--- NOTE | 2025-05-27 12:58 | PM.OP.1 ---
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 Discussed the need for a repeat TURBT. Discussed that should he remain in the intermediate-risk category, would recommend reinduction of Trevorton/Doce as well as monthly Trevorton/Doce for up to 24 months. Discussed risks of the procedure to include but not limited to pain, bleeding, infection, injury to urethra/prostate/bladder/ureteral orifice, need for a ureteral stent, prolonged catheterization, and possible open repair of ureteral and/or bladder injury. After careful consideration, they would prefer to move forward with his TURBT. Surgeon: Constantine Rizo Assisted?: No Anesthesia Type: General Operative Notes Findings: 1cm papillary mass concerning for urothelial cell carcinoma Closure Type: not applicable Specimen(s): other (bladder tumor) Applied: catheter Estimated Blood Loss (mL): 2 Blood products transfused: none Procedure in detail: Patient was identified in the preoperative holding area and consent confirmed. He was then brought to the operating room where general anesthesia was induced. He was then placed in the low lithotomy position. He was then prepped and draped in the usual sterile fashion. A surgical timeout was conducted and all were in agreement. Access to the bladder was obtained via a 21Fr cystoscope. Complete cystoscopy was then performed using a 30 and 70 degree lens. He was noted to have grade 4 trabeculations throughout his bladder as well as a 1cm papillary mass concerning for urothelial cell carcinoma along his posterior bladder wall. Bilateral ureteral orifices were visualized and noted to be orthotopic in nature. No other concerning lesions were appreciated. The cystoscope was then removed and his urethral meatus was serially dilated using Lipscomb sounds from 22Fr to 30Fr. The 26Fr resectoscope with visual obturator was then advanced through his urethra and into his bladder. The working element with Gyrus loop was then assembled and passed through the resectoscope and into the bladder. The mass was then resected to its base. The resection bed was then fulgurated. All bladder specimens were then manually evacuated from the bladder using the resectoscope. Hemostasis was evaluated and noted to be excellent at case end. An 18Fr paul was then inserted into the bladder at case end, 10cc of sterile water was used for balloon insufflation. Anesthesia was reversed, he was extubated in the OR and transferred to the PACU in stable condition for recovery. Complications: none Post-operative Condition: stable Disposition: PACU Plan for aftercare: Discharge home from PACU. Will return to Urology clinic on 29 May 2025 for a voiding trial.
[2025-05-27 13:43] VITALS: BP 150/75; PULSE 70; RESP 15; TEMP 37.2; O2SAT 95
== END 2025-05-27 14:00 | disposition home or self-care (01) ==
PROVIDERS: Family Provider Family Medicine; PCP Family Medicine; Referring Provider Urology; Visit Provider Urology
PROC: 0TBB8ZZ Excision of Bladder, Via Natural or Artificial Opening Endoscopic (ICD-10-PCS; CPT 52234; principal; 2025-05-27 11:45)
DX: C67.9 Malignant neoplasm of bladder, unspecified (principal); R39.15 Urgency of urination; Z85.51 Personal history of malignant neoplasm of bladder; Z79.82 Long term (current) use of aspirin
CPT/HCPCS: 52234; J0330; J0689; J1100; J2405; J2704; J3010; J3490; J7120

== ENCOUNTER → 2025-06-25 10:36 | Outpatient (CLI) | payer MEDICARE, OTHER, SELFPAY ==
[2025-06-10 16:10] VITALS: BMI 22.9
== END ==
PROVIDERS: Family Provider Family Medicine; PCP Family Medicine; Visit Provider Urology
DX: N30.00 Acute cystitis without hematuria (principal); R39.9 Unspecified symptoms and signs involving the genitourinary system
CPT/HCPCS: 51720; 81002; 87086; J9171; J9201